=== PATIENT | male | born 1950 | race Caucasian/White ===

== ENCOUNTER 2017-05-31 07:14 | Inpatient (IN) | payer MEDICAID, OTHER ==
[2017-05-31] VITALS (7 sets, daily range): BP systolic 117–122; BP diastolic 69–84; PULSE 78–103; RESP 18
[~2017-05-31] VITALS: Wt 85.0 kg
[~2017-05-31 07:14] MED LIST: ASC500 PO; ASPI325T32 PO; ATOR80TA75 PO; BENA10TA48 PO; CLOP75TA27 PO; FER325 PO; FINA5TAB4 PO; HYDR-3498 PO; PANT40TA4 PO; SERT50TA6 PO; SPIR25TA PO; TAMS-14 PO
[2017-05-31] MEDS ORDERED: METHYLPREDNISOLONE 125 MG INJ IV STA (07:19)
[2017-05-31] MEDS ORDERED: ALBUTEROL 0.083% (NEB) 2.5 MG/3 ML AMP NEB STA (07:19)
[2017-05-31] MEDS ORDERED: IPRATROPIUM (NEB) 0.5 MG/2.5 ML AMP NEB STA (07:19)
--- NOTE | 2017-05-31 07:54 | RADRPT ---
PROCEDURE: XR Chest. TECHNIQUE: Single frontal radiograph. CLINICAL INDICATION: Shortness of breath. COMPARISON: 09/07/2016. FINDINGS: Progressed bilateral diffuse interstitial opacities. Lung volumes remain shallow. The cardiac silh ouette is enlarged. IMPRESSION: Increased bilateral interstitial opacities, especially in the right hemithorax, reflecting worsening edema and/or infiltrate. RPTAT: EE .Sander Spencer MD, MD Date Time Electronically viewed and signed by .Sander Spencer MD, MD on 05/31/2017 07:59 .C/
[2017-05-31 07:57] LABS: BASOPHIL # 0.1 10^3/ul (0.0-0.1); BASOPHILS % 0.6 % (0.0-2.0); EOSINOPHILS # 0.2 10^3/ul (0.0-0.5); EOSINOPHILS % 1.8 % (0.0-7.0); HEMATOCRIT 39.8 % (42.0-52.0); HEMOGLOBIN 12.9 g/dl (14.0-18.0); LYMPHOCYTES # 2.1 10^3/ul (0.8-2.9); LYMPHOCYTES % 23.3 % (15.0-51.0); MEAN CORPUSCULAR HEMOGLOBIN 26.9 pg (29.0-33.0); MEAN CORPUSCULAR HGB CONC 32.4 g/dl (32.0-37.0); MEAN CORPUSCULAR VOLUME 83.1 fl (82.0-101.0); MEAN PLATELET VOLUME 9.6 fl (7.4-10.4); MONOCYTE # 0.5 10^3/ul (0.3-0.9); MONOCYTES % 5.8 % (0.0-11.0); NEUTROPHILS % 67.7 % (39.0-77.0); PLATELET COUNT 284 10^3/UL (140-415); RED BLOOD COUNT 4.79 10^6/ul (4.70-6.10); RED CELL DISTRIBUTION WIDTH 13.3 % (11.5-14.5); WHITE BLOOD COUNT 8.8 10^3/ul (4.8-10.8)
[2017-05-31 07:58] LABS: ADD SCAN DIFF NO
[2017-05-31 08:15] LABS: CREATININE 0.87 mg/dl (0.61-1.24); POTASSIUM 4.2 mmol/L (3.5-5.1)
[2017-05-31 08:17] LABS: INR 0.96; PROTIME 12.8 Sec (12.2-14.2)
[2017-05-31 08:18] LABS: PARTIAL THROMBOPLASTIN TIME 32.4 Sec (25.0-35.0)
[2017-05-31 08:26] LABS: TROPONIN-I 0.041 ng/ml (0.00-0.12)
--- NOTE | 2017-05-31 08:44 | ERA ---
ER Documentation Chief Complaint Date/Time DATE: 05/31/17 TIME: 08:41 Chief Complaint COUGH, SOB, ONSET LAST NIGHT, DENIES CHEST PAIN HPI This 66-year-old male presents to the emergency room for evaluation of shortness of breath, and dry cough. The patient states that he is also having some chest pain which localized to the center of his chest. He does state that he has a previous heart attack with stent placement 2 years ago. He has not followed up with brush sander. He came to the ER today for evaluation ROS All systems reviewed and are negative except as per history of present illness. Medications Home Meds Active Scripts Tamsulosin Hcl* (Flomax*) 0.4 Mg Cap.er.24h, 0.4 MG PO HS for 1 Day, CAP Prov:TAYLOR TSANG MD 09/09/16 Spironolactone* (Aldactone*) 25 Mg Tablet, 25 MG PO DAILY for 1 Day, TAB Prov:TAYLOR TSANG MD 09/09/16 Sertraline Hcl* (Sertraline Hcl*) 50 Mg Tablet, 50 MG PO DAILY for 1 Day, TAB Prov:TAYLOR TSANG MD 09/09/16 Pantoprazole* (Pantoprazole*) 40 Mg Tablet.dr, 40 MG PO DAILY@06 for 1 Day Prov:TAYLOR TSANG MD 09/09/16 Hydrocodone Bit-Acetaminophen (Hydrocodone Bit-APAP) 5-325MG Tablet, 1 TAB PO Q3H Y for PAIN LEVEL 1-3 for 1 Day, TAB Prov:TAYLOR TSANG MD 09/09/16 Finasteride* (Finasteride*) 5 Mg Tablet, 5 MG PO DAILY for 1 Day, TAB Prov:TAYLOR TSANG MD 09/09/16 Ferrous Sulfate* (Ferrous Sulfate*) 325 Mg Tabec, 325 MG PO DAILY for 1 Day, TAB Prov:TAYLOR TSANG MD 09/09/16 Clopidogrel Bisulfate (Clopidogrel) 75 Mg Tablet, 75 MG PO DAILY for 1 Day, TAB Prov:TAYLOR TSANG MD 09/09/16 Benazepril Hcl* (Benazepril Hcl*) 10 Mg Tablet, 10 MG PO BID for 1 Day, TAB Prov:TAYLOR TSANG MD 09/09/16 Atorvastatin* (Atorvastatin*) 80 Mg Tablet, 80 MG PO DAILY@21 for 1 Day, TAB Prov:TAYLOR TSANG MD 09/09/16 Aspirin (Aspir-Irena) 325 Mg Tablet.dr, 325 MG PO DAILY for 1 Day Prov:TAYLOR TSANG MD 09/09/16 Ascorbic Acid (Vitamin C) 500 Mg Tab, 500 MG PO DAILY for 1 Day, TAB Prov:TAYLOR TSANG MD 09/09/16 Allergies Allergies: Coded Allergies: No Known Allergy (Unverified , 08/31/16) PMhx/Soc History of Surgery: Yes (see EMR) Anesthesia Reaction: No Hx 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 Disorder: No Hx Respiratory Disorders: No Hx Cardiac Disorders: No Hx Psychiatric Problems: No Hx Miscellaneous Medical Probl: Yes (see EMR) Hx Alcohol Use: Yes Hx Substance Use: No Hx Tobacco Use: Yes Physical Exam Vitals Vital Signs Date Time Temp Pulse Resp B/P Pulse Ox O2 Delivery O2 Flow Rate FiO2 05/31/17 07:29 93 20 98 Nasal Cannula 3.0 05/31/17 07:25 Nasal Cannula 2 05/31/17 07:24 98.7 97 17 133/88 97 Physical Exam INITIAL VITAL SIGNS: Reviewed by me GENERAL: The patient is well developed and appropriate for usual state of health in no apparent distress HEENT: Pupils equal, round, and reactive to light. EOMI. There is no scleral icterus. NECK: C-spine is soft and supple, there is no meningismus. There is no cervical lymphadenopathy. LUNGS: Expiratory wheezing bilaterally with coarse breath sounds in the bilateral lower lobes. HEART: Regular rate and rhythm, no murmurs, clicks, rubs or gallops. ABDOMEN: Soft, non-tender, non-distended. There are bowel sounds in all four quadrants. No rebound or guarding. EXTREMITIES: There is no peripheral cyanosis or edema. No focal swelling or erythema. NEUROLOGICAL: The patient moves all four extremities with 5/5 strength. Cranial nerves II - XII are intact. Normal gait. Alert and oriented SKIN: There is no apparent rash or petechiae. HEME/LYMPHATIC: There is no evidence of excessive bruising or lymphedema. PSYCHIATRIC: The patient does not appear anxious or depressed. Result Diagram: 05/31/17 0741 05/31/17 07 Results 24 hrs Laboratory Tests Test 05/31/17 07:41 White Blood Count 8.810^3/ul Red Blood Count 4.7910^6/ul Hemoglobin 12.9g/dl Hematocrit 39.8% Mean Corpuscular Volume 83.1fl Mean Corpuscular Hemoglobin 26.9pg Mean Corpuscular Hemoglobin Concent 32.4g/dl Red Cell Distribution Width 13.3% Platelet Count 99843^3/UL Mean Platelet Volume 9.6fl Neutrophils % 67.7% Lymphocytes % 23.3% Monocytes % 5.8% Eosinophils % 1.8% Basophils % 0.6% Nucleated Red Blood Cells % 0.0/100WBC Neutrophils # 6.010^3/ul Lymphocytes # 2.110^3/ul Monocytes # 0.510^3/ul Eosinophils # 0.210^3/ul Basophils # 0.110^3/ul Nucleated Red Blood Cells # 0.010^3/ul Prothrombin Time 12.8Sec Prothrombin Time Ratio 1.0 INR International Normalized Ratio 0.96 Activated Partial Thromboplast Time 32.4Sec Sodium Level 135mmol/L Potassium Level 4.2mmol/L Chloride Level 101mmol/L Carbon Dioxide Level 23mmol/L Anion Gap 15 Blood Urea Nitrogen 17mg/dl Creatinine 0.87mg/dl Glucose Level 140mg/dl Calcium Level 9.0mg/dl Troponin I 0.041ng/ml B-Type Natriuretic Peptide 2050PG/ML Current Medications Medications (Trade) Dose Ordered Sig/Dimitrios Route PRN Reason Start Time Stop Time Status Last Admin Dose Admin Albuterol (Proventil 0.083% (Neb)) 5 mg ONCE STAT NEB 05/31/17 07:19 05/31/17 07:21 DC 05/31/17 07:28 Ipratropium [place] (Atrovent 0.02% (Neb)) 0.5 mg ONCE STAT NEB 05/31/17 07:19 05/31/17 07:21 DC 05/31/17 07:28 Methylprednisolone Sodium Succinate (Solu-Medrol) 125 mg ONCE STAT IV 05/31/17 07:19 05/31/17 07:21 DC 05/31/17 07:44 Ondansetron HCl (Zofran Inj) 4 mg ER BRIDGE PRN IV NAUSEA AND/OR VOMITING 05/31/17 09:00 06/01/17 08:59 Acetaminophen (Tylenol Tab) 650 mg ER BRIDGE PRN PO MILD PAIN/FEVER 05/31/17 09:00 06/01/17 08:59 Aspirin (Aspirin) 325 mg ONCE ONCE PO 05/31/17 09:00 05/31/17 09:01 Furosemide (Lasix) 20 mg ONCE ONCE IV 05/31/17 09:00 05/31/17 09:01 Procedures/MDM EKG: Rate/Rhythm: [Normal Sinus Rhythm with PVCs] QRS, ST, T-waves: [No changes consistent w/ acute ischemia] Impression: [No evidence of acute ischemia or arrhythmia] Chest X-ray 1V Interpreted by me: Soft Tissue: Pulmonary edema Bones: No acute abnormalities Mediastinum/Cardiac Silhouette/Lungs: [No acute abnormalities] This 66-year-old male presents to the ER for evaluation of chest pain shortness of breath. The patient did have a slight cough as well. On examination he had mild end expiratory wheezing bilaterally. He also coarse rales auscultated in the lower lobes. Patient's EKG does not show any signs of acute ischemia however the patient does have a previous cardiac history and is an active smoker. This patient's lab work does show an elevated brain natruretic peptide. His first troponin is negative, chest x-ray does show mild pulmonary edema versus infiltrate. The patient was given aspirin in the emergency room, is given 20 mg Lasix. He will be admitted at this time and will be started on Rocephin and azithromycin for possible superimposed [facility] pneumonia. The patient is hemodynamically stable will be admitted under the care of Dr. Allison Smoking Cessation Therapy: Pt. was lectured for greater than 3 minutes on the health risks of continued smoking and the benefits of cessation. Departure Diagnosis: Primary Impression: Chest pain Additional Impressions: Shortness of breath Systolic CHF Tobacco use disorder Pulmonary edema Condition: MAISHA Rojas DO May 31, 2017 08:44
[2017-05-31] MEDS ORDERED: CEFTRIAXONE 1 GM/50 ML (PMX) 50 ML IVPB STA (08:45)
[2017-05-31] MEDS ORDERED: AZITHROMYCIN 500MG/NS (PMX) 250 ML IV STA (08:45)
[2017-05-31] MEDS ORDERED: FUROSEMIDE 20 MG INJ IV ONE (09:00)
[2017-05-31] MEDS ORDERED: ONDANSETRON 4 MG INJ IV PRN ×2 (09:00→11:30)
[2017-05-31] MEDS ORDERED: ACETAMINOPHEN 325 MG TAB PO PRN ×2 (09:00→11:30)
[2017-05-31] MEDS ORDERED: ASPIRIN 325 MG TAB PO ONE (09:00)
[2017-05-31] MEDS ORDERED: morphine 2 MG INJ IV PRN (11:30)
--- NOTE | 2017-05-31 11:38 | HP ---
Date/Time of Note Date/Time of Note DATE: 05/31/17 TIME: 11:34 Assessment/Plan VTE Prophylaxis VTE Prophylaxis Intervention: LMWH Lines/Catheters IV Catheter Type (from Nrs): Saline Lock Assessment/Plan Assessment/Plan 1. cards: chf, diuresis, check echo (b) cad, cont asa and plavix 2. tobacco abuse, cessation counselled 3. depression 4, bph cont flomax and proscar HPI/ROS Admit Date/Time Admit Date/Time May 31, 2017 at 08:34 Hx of Present Illness neto arellano 1 day of sb which started last night and prevented him from sleeping, he states that every time he lay down his breathing gets worse. he denies any associated chest pain./ states that because he could not sleep he spent the entire nigght pacing and walking around ROS 5 systems reviewed and not revealing PMH/Family/Social Past Medical History cad s/p stent x2 lad tobacco abuse dpression bph htn Family History Significant Family History: no pertinent family hx Social History lives at home with mother, IADL, able to do laundry but sdoes have to stop when carrying it back to his apratment Alcohol Use: occasionally Smoking Status: Current every day smoker Exam/Review of Systems Vital Signs Vitals Vital Signs Date Time Temp Pulse Resp B/P Pulse Ox O2 Delivery O2 Flow Rate FiO2 05/31/17 10:19 91 05/31/17 09:23 18 137/74 97 Nasal Cannula 2.0 05/31/17 07:24 98.7 Exam Constitutional: oriented Psych: no complaints Head: atraumatic, normocephalic Neck: non-tender, supple Respiratory: clear to auscultation Cardiovascular: regular rate and rhythm Gastrointestinal: non-tender, soft Labs Result Diagram: 05/31/17 0741 05/31/17 0741 QUIRINO GONCALVES MD May 31, 2017 11:37
[2017-05-31] MEDS: FUROSEMIDE 40 MG INJ IV SCH (12:30)
[2017-05-31 14:43] LABS: TROPONIN-I 0.031 ng/ml (0.00-0.12)
[2017-05-31 14:46] LABS: CK-MB 1.77 ng/ml (0.0-2.4)
[2017-05-31] MEDS: BENAZEPRIL 10 MG TAB PO SCH (20:13)
[2017-05-31 20:18] LABS: TROPONIN-I 0.022 ng/ml (0.00-0.12)
[2017-05-31 20:19] LABS: CK-MB 1.94 ng/ml (0.0-2.4)
[2017-05-31] MEDS ORDERED: ATORVASTATIN 80 MG TAB PO SCH (21:00)
[2017-05-31] MEDS ORDERED: TAMSULOSIN (SR) 0.4 MG CAP PO SCH (21:00)
[2017-06-01] VITALS (13 sets, daily range): BP systolic 88–167; BP diastolic 55–81; PULSE 78–96; RESP 16–20
[2017-06-01] MEDS: FUROSEMIDE 40 MG INJ IV SCH (00:07)
[2017-06-01] MEDS ORDERED: PANTOPRAZOLE (EC) 40 MG TAB PO SCH (06:00)
[2017-06-01] MEDS ORDERED: FINASTERIDE 5 MG TAB PO SCH (09:00)
[2017-06-01] MEDS ORDERED: FERROUS SULFATE (EC) 325 MG TAB PO SCH (09:00)
[2017-06-01] MEDS ORDERED: ASCORBIC ACID 500 MG TAB PO SCH (09:00)
[2017-06-01] MEDS: BENAZEPRIL 10 MG TAB PO SCH (09:00)
[2017-06-01] MEDS ORDERED: CLOPIDOGREL 75 MG TAB PO SCH (09:00)
[2017-06-01] MEDS ORDERED: SPIRONOLACTONE 25 MG TAB PO SCH (09:00)
[2017-06-01] MEDS ORDERED: ASPIRIN (EC) 325 MG TAB PO SCH (09:00)
[2017-06-01] MEDS ORDERED: ENOXAPARIN 40 MG/0.4 ML SYG SC SCH (09:00)
[2017-06-01] MEDS ORDERED: SERTRALINE 50 MG TAB PO SCH (09:00)
--- NOTE | 2017-06-01 11:43 | PN ---
Date/Time of Note Date/Time of Note DATE: 06/01/17 TIME: 11:41 Assessment/Plan VTE Prophylaxis VTE Prophylaxis Intervention: ambulation Lines/Catheters IV Catheter Type (from Nrsg): Saline Lock Urinary Cath still in place: No Assessment/Plan Assessment/Plan 1. cards: chf, await echo, appears at or near euvolemic, d/c lasix (b0 hypotension, asymptomatic, will reduce benazepril 2. tobacco abuse, cessation counselled Subjective 24 Hr Interval Summary Free Text/Dictation feels better, was able to sleep last night Exam/Review of Systems Vital Signs Vitals Vital Signs Date Time Temp Pulse Resp B/P Pulse Ox O2 Delivery O2 Flow Rate FiO2 06/01/17 11:39 97.6 86 20 101/66 96 06/01/17 04:00 Nasal Cannula 5.0 Intake and Output 05/31/17 05/31/17 06/01/17 15:00 23:00 07:00 Intake Total 400 ml Output Total 850 ml 750 ml Balance -850 ml -350 ml Exam able to stand and walk >100' on ra, no complaints of sob Constitutional: alert Respiratory: clear to auscultation Cardiovascular: regular rate and rhythm Results Result Diagram: 05/31/17 0741 05/31/17 0741 Results 24 hrs Laboratory Tests Test 05/31/17 13:35 05/31/17 17:25 05/31/17 19:31 Creatine Kinase 49 50 Creatine Kinase Index 3.6 3.9 Creatinine Kinase MB (Mass) 1.77 1.94 Troponin I 0.031 0.028 0.022 Medications Medications Current Medications Furosemide (Lasix) 40 mg Q12H IV Last administered on 06/01/17 00:07; Admin Dose 40 MG; Start 05/31/17 at 11:30 Acetaminophen (Tylenol Tab) 650 mg Q4H PRN PO PAIN AND OR ELEVATED TEMP; Start 05/31/17 at 11:30 Ondansetron HCl (Zofran Inj) 4 mg Q4H PRN IV NAUSEA AND/OR VOMITING; Start 05/31 at 11:30 Morphine Sulfate (morphine) 2 mg Q2H PRN IV PAIN; Start 05/31/17 at 11:30 Enoxaparin Sodium (Lovenox) 40 mg DAILY SC Last administered on 06/01/17 10:24 ; Admin Dose 40 MG; Start 06/01/17 at 09:00 Ascorbic Acid (Vitamin C) 500 mg DAILY PO Last administered on 06/01/17 09:00; Admin Dose 500 MG; Start 06/01/17 at 09:00 Aspirin (Ecotrin) 325 mg DAILY PO Last administered on 06/01/17 10:18; Admin Dose 325 MG; Start 06/01/17 at 09:00 Atorvastatin Calcium (Lipitor) 80 mg DAILY@21 PO Last administered on 05/31/17 20:13; Admin Dose 80 MG; Start 05/31/17 at 21:00 Benazepril HCl (Lotensin) 10 mg BID PO Last administered on 05/31/17 20:13; Admin Dose 10 MG; Start 05/31/17 at 21:00 Clopidogrel Bisulfate (plaVIX) 75 mg DAILY PO Last administered on 06/01/17 10: 16; Admin Dose 75 MG; Start 06/01/17 at 09:00 Ferrous Sulfate (Ferrous Sulfate (Ec)) 325 mg DAILY PO Last administered on 06/01 10:16; Admin Dose 325 MG; Start 06/01/17 at 09:00 Finasteride (Proscar) 5 mg DAILY PO Last administered on 06/01/17 10:12; Admin Dose 5 MG; Start 06/01/17 at 09:00 Pantoprazole (Protonix Tab) 40 mg DAILY@06 PO Last administered on 06/01/17 05: 05; Admin Dose 40 MG; Start 06/01/17 at 06:00 Sertraline HCl (Zoloft) 50 mg DAILY PO Last administered on 06/01/17 10:17; Admin Dose 50 MG; Start 06/01/17 at 09:00 Spironolactone (Aldactone) 25 mg DAILY PO ; Start 06/01/17 at 09:00 Tamsulosin HCl (Flomax) 0.4 mg HS PO Last administered on 05/31/17 20:13; Admin Dose 0.4 MG; Start 05/31/17 at 21:00 QUIRINO GONCALVES MD Jun 01, 2017 11:43
[2017-06-01] MEDS ORDERED: BENA10TA48 PO (11:52)
--- NOTE | 2017-06-01 11:54 | PDOCDIS ---
Discharge Instructions CONDITION Patient Condition: Good HOME CARE INSTRUCTIONS: Diet Instructions: 2gm Na ACTIVITY: Activity Restrictions: Slowly Increase Activity FOLLOW UP/APPOINTMENTS Follow-up Plan 1. follow [facility] 1-2 weeks 2. follow up[ with cardiology next available 3. note new dose of benazepril (1 tab daily) 4. quit smoking and keep quitting until you have quit for good QUIRINO GONCALVES MD Jun 01, 2017 11:54
--- NOTE | 2017-06-01 18:15 | RADRPT ---
Echocardiogram Report Patient Name: HARJEET CALZADA Gender: Male Date: 1950 Study Date: 01-Jun-2017 Distribution Field Technician: Finn Ferreira [facility] Location: [id number] Ref. Physician: QUIRINO GONCALVES Quality: Adequate Procedures: Transthoracic echocardiogram with complete 2D, M-Mode, and doppler examination. Indications: Chest Pain. 2D/M Mode Doppler Measurement Value Normal Ranges Measurement Value Normal Ranges LVIDd 2D 5.9 3.5 - 5.6 cm AV Peak Edgar 0.9 m/sec LVIDs 2D 4.2 2.1 - 4.1 cm AV Peak PG 3.6 mmHg LVPWd 2D 1.3 0.6 - 1.1 cm LVOT Peak Edgar 0.7 m/sec IVSd 2D 1.3 0.6 - 1.1 cm LVOT Peak PG 1.9 mmHg AoR Diam 2D 3.8 2.0 - 3.7 cm MV E Peak Edgar 1.7 m/sec EDV 2D 171.0 cm3 MV A Peak Edgar 0.3 m/sec ESV 2D 76.3 cm3 MV E/A 5.4 LA Dimen 2D 3.6 2.3 - 4.0 cm MV Decel Time 79 msec MV Decel Spencer 21 MV E/A 5.4 TR Peak Edgar 3.7 m/sec TR Peak PG 59.0 mmHg RVSP 62.0 mmHg Findings Left Ventricle: Normal left ventricular cavity size. Mild concentric left ventricular hypertrophy. Severe global left ventricular systolic dysfunction. Ejection fraction is visually estimated at 25 %. Tissue Doppler/Mitral Doppler indices are consistent with restrictive physiology with markedly elevated left atrial pressure (Stage IIIIV diastolic dysfunction). Right Ventricle: Normal right ventricular size. Normal right ventricular systolic function. Left Atrium: The left atrium is normal in size. Right Atrium: The right atrium is normal in size. Mitral Valve: Mitral valve leaflets appear moderately thickened. Moderate mitral annular calcification. Moderate to severe mitral valve regurgitation. Aortic Valve: No significant aortic stenosis or insufficiency. Aortic sclerosis without stenosis. Tricuspid Valve: Normal appearance of the tricuspid valve. Estimated peak PA systolic pressure 62 mmHg. There is moderate tricuspid regurgitation. Pulmonic Valve: Normal pulmonic valve appearance. There is trace pulmonic regurgitation. Pericardium: Normal pericardium with no significant pericardial effusion. Aorta: Normal aortic root. IVC: Normal size and normal respiratory collapse consistent with normal right atrial pressure. Conclusions 1.Normal left ventricular cavity size. Mild concentric left ventricular hypertrophy. Severe global left ventricular systolic dysfunction. Ejection fraction is visually estimated at 25 %. Tissue Doppler/Mitral Doppler indices are consistent with restrictive physiology with markedly elevated left atrial pressure (Stage III-IV diastolic dysfunction). 2.Mitral valve leaflets appear moderately thickened. Moderate mitral annular calcification. Moderate to severe mitral valve regurgitation. Electronically Signed By: Tim Harris 01-Jun-2017 18:14:09 -0700 Patient Name: HARJEET CALZADA Study Date: 01-Jun-2017 [id number]
[2017-06-02] MEDS ORDERED: BENAZEPRIL 10 MG TAB PO SCH (09:00)
== END 2017-06-01 19:07 | disposition home or self-care (01) | DRG 293 ==
LOC: E/R 07:14 → MS4 08:34
PROVIDERS: ADMIT Legal Medicine; ATTEND Legal Medicine
DX: I11.0 Hypertensive heart disease with heart failure (principal); F32.9 Major depressive disorder, single episode, unspecified; I25.10 Atherosclerotic heart disease of native coronary artery without angina pectoris; F17.210 Nicotine dependence, cigarettes, uncomplicated; Z95.5 Presence of coronary angioplasty implant and graft; I25.2 Old myocardial infarction; N40.0 Benign prostatic hyperplasia without lower urinary tract symptoms; I50.20 Unspecified systolic (congestive) heart failure
CPT/HCPCS: 36415; 71010; 80048; 82550; 82553; 83880; 84484; 85025; 85610; 85730; 93005; 93306; 94664; 96374; 96375; J1940; J0456; J0696; J1650; J2930

== ENCOUNTER 2017-07-03 03:17 | Inpatient (IN) | payer OTHER ==
[~2017-07-03] VITALS: Ht 172.7 cm; Wt 87.4 kg
[2017-07-03] MEDS ORDERED: FURO20TA3 PO (04:10)
[2017-07-03 04:17] LABS: BASOPHIL # 0.1 10^3/ul (0.0-0.1); BASOPHILS % 0.2 % (0.0-2.0); EOSINOPHILS # 0.2 10^3/ul (0.0-0.5); EOSINOPHILS % 0.9 % (0.0-7.0); HEMATOCRIT 28.3 % (42.0-52.0); HEMOGLOBIN 8.8 g/dl (14.0-18.0); LYMPHOCYTES # 2.1 10^3/ul (0.8-2.9); LYMPHOCYTES % 10.2 % (15.0-51.0); MEAN CORPUSCULAR HEMOGLOBIN 26.7 pg (29.0-33.0); MEAN CORPUSCULAR HGB CONC 31.1 g/dl (32.0-37.0); MEAN PLATELET VOLUME 9.9 fl (7.4-10.4); MONOCYTE # 1.4 10^3/ul (0.3-0.9); NEUTROPHIL # 15.9 10^3/ul (1.6-7.5); NEUTROPHILS % 78.3 % (39.0-77.0); PLATELET COUNT 350 10^3/UL (140-415); RED BLOOD COUNT 3.29 10^6/ul (4.70-6.10); RED CELL DISTRIBUTION WIDTH 14.9 % (11.5-14.5); WHITE BLOOD COUNT 20.4 10^3/ul (4.8-10.8)
[2017-07-03 04:36] LABS: INR 1.68; PROTIME 19.9 Sec (12.2-14.2); PT RATIO 1.6
[2017-07-03 04:37] LABS: PARTIAL THROMBOPLASTIN TIME 52.4 Sec (25.0-35.0)
[2017-07-03 04:40] LABS: ALANINE AMINOTRANSFERASE 97 IU/L (13-69); ALBUMIN 3.9 g/dl (3.3-4.9); ALBUMIN/GLOBULIN RATIO 1.25; ALKALINE PHOSPHATASE 143 IU/L (42-121); ANION GAP 21 (8-16); ASPARTATE AMINO TRANSFERASE 57 IU/L (15-46); BILIRUBIN,INDIRECT 0.3 mg/dl (0-1.1); BILIRUBIN,TOTAL 0.3 mg/dl (0.2-1.3); BLOOD UREA NITROGEN 20 mg/dl (7-20); CALCIUM 8.7 mg/dl (8.4-10.2); CARBON DIOXIDE 25 mmol/L (21-31); CHLORIDE 95 mmol/L (97-110); CREATININE 0.84 mg/dl (0.61-1.24); GLUCOSE 131 mg/dl (70-220); SODIUM 136 mmol/L (135-144)
[2017-07-03 04:44] LABS: ETHANOL < 10.0 mg/dl
[2017-07-03 04:51] LABS: B-TYPE NATRIURETIC PEPTIDE 10700 PG/ML (0-125)
[2017-07-03] MEDS ORDERED: FUROSEMIDE 40 MG INJ IV ONE (05:00)
--- NOTE | 2017-07-03 05:09 | RADRPT ---
PROCEDURE: CT BRAIN WITHOUT CONTRAST CLINICAL INDICATION: 66-year-old male with altered level of consciousness. TECHNIQUE: The study was performed utilizing GE [employer] VCT 64-slice CT scanner. Direct axial sections were obtained from the foramen magnum to the vertex without the use of intravenous contrast material. Sagittal and coronal reformations were obtained. One or more of the following dose reduc tion techniques were utilized: automated exposure control, adjustment of the mA and/or kV according to patient's size or use of iterative reconstruction technique. The images were viewed on a PACS [place]. CTD/vol = 45.0 mGy; Total Exam DLP = 810.3 mGy-cm. COMPARISON: CT brain August 14, 2016. FINDINGS: There is [id number] degree of diffuse cortical and central atrophy with compensatory ventricul ar enlargement. There is no evidence for mass effect or midline shift. There are periventricular a reas of decreased density consistent with microangiopathic ischemic changes. There is no evidence f or acute intra or extra-axial blood. Calcifications are seen within the intracranial carotid arterie s bilaterally. The bony calvarium is intact. There is mild mucosal thickening identified within the ethmoid air cells bilaterally and left maxillary sinus. No definite air-fluid levels are noted. Th e mastoid air cells are without significant soft tissue. IMPRESSION: 1. The intracranial contents are without significant interval change compared to the patient's prio r CT scan from August 14, 2016. 2. Kvyv-fl-ukolcstf diffuse atrophy. 3. Microangiopathic ischemic changes. 4. Vascular calcifications. 5. Mild mucosal thickening bilateral ethmoid air cells and left maxillary sinus. .Jasper Duncan MD, Date Time Electronically viewed and signed by .Jasper Duncan MD, on 07/03/2017 05:09 .M/
--- NOTE | 2017-07-03 05:13 | RADRPT ---
PROCEDURE: CHEST - 1 VIEW CLINICAL INDICATION: 66-year-old male with shortness of breath. TECHNIQUE: A single frontal AP upright portable view of the chest was performed. The images were reviewed on a PACS workstation. COMPARISON: Chest x-ray May 31, 2017. FINDINGS: The patient has had a prior median sternotomy. The cardiomediastinal silhouette is moderately enlar ged. There is a left atrial appendage closure device. There is elevation right hemidiaphragm. Ther e is mild pulmonary vascular congestion. There is no evidence for focal consolidation. There is no e vidence for pneumothorax. IMPRESSION: 1. Status post median sternotomy. 2. Cardiomegaly with left atrial appendage closure device. 3. Pulmonary vascular congestion. 4. Elevated right hemidiaphragm. .Jasper Duncan MD, Date Time Electronically viewed and signed by .Jasper Duncan MD, on 07/03/2017 05:12 .M/
[2017-07-03] MEDS ORDERED: ASPIRIN 325 MG TAB PO ONE (05:30)
[2017-07-03] MEDS ORDERED: NITROGLYCERIN 2% 1 GM OINT PKT TD ONE (05:30)
[2017-07-03] MEDS ORDERED: PIPER-TAZO 3.375 GM IV (PMX) 100 ML IVPB ONE (05:30)
[2017-07-03] MEDS ORDERED: ONDANSETRON 4 MG INJ IV PRN (06:00)
[2017-07-03] MEDS ORDERED: LORAZEPAM 2 MG INJ IV ONE (06:00)
[2017-07-03] MEDS ORDERED: ACETAMINOPHEN 325 MG TAB PO PRN (06:00)
[2017-07-03] MEDS: VANCOMYCIN 1 GM (PMX) 250 ML IVPB SCH ×2 (06:00→07:26)
[2017-07-03] MEDS ORDERED: VANCOMYCIN IV PER PHARMACY XX SCH (06:00)
[2017-07-03] MEDS ORDERED: PIPER-TAZO 3.375 GM IV (PMX) 100 ML IVPB SCH (06:00)
[2017-07-03] MEDS: PANTOPRAZOLE (EC) 40 MG TAB PO SCH (06:04)
--- NOTE | 2017-07-03 06:14 | ERA ---
ER Documentation Chief Complaint Date/Time DATE: 07/03/17 Chief Complaint bib ra for cp x 5 hours, given 1 nitro spray on field with asa 162 mg, HPI The patient is a 66-year-old male, presenting to the ER because of right-sided chest pain, shortness of breath for the last 5 hours prior to arrival. He was treated with aspirin 160 mg asa and 1 nitroglycerin spray with good response. He was discharged to the hospital recently about 5 days ago when he had open heart surgery, the details unclear. He is somewhat confused according to the nurse to speak fluent [place]. He is unable to give detailed information of the surgery that he had. He denies palpitation, abdominal pain, vomiting, dysuria, diarrhea. He smokes and drinks socially Past medical history: CAD, CHF, depression, BPH Past surgical history: Stent PCI, open heart surgery recently ROS All systems reviewed and are negative except as per history of present illness. Medications Home Meds Active Scripts Benazepril Hcl* (Benazepril Hcl*) 10 Mg Tablet, 10 MG PO DAILY for 30 Days, #30 TAB Prov:QUIRINO GONCALVES MD 06/01/17 Tamsulosin Hcl* (Flomax*) 0.4 Mg Cap.er.24h, 0.4 MG PO HS for 1 Day, CAP Prov:TAYLOR TSANG MD 09/09/16 Spironolactone* (Aldactone*) 25 Mg Tablet, 25 MG PO DAILY for 1 Day, TAB Prov:TAYLOR TSANG MD 09/09/16 Sertraline Hcl* (Sertraline Hcl*) 50 Mg Tablet, 50 MG PO DAILY for 1 Day, TAB Prov:TAYLOR TSANG MD 09/09/16 Pantoprazole* (Pantoprazole*) 40 Mg Tablet.dr, 40 MG PO DAILY@06 for 1 Day Prov:TAYLOR TSANG MD 09/09/16 Hydrocodone Bit-Acetaminophen (Hydrocodone Bit-APAP) 5-325MG Tablet, 1 TAB PO Q3H Y for PAIN LEVEL 1-3 for 1 Day, TAB Prov:TAYLOR TSANG MD 09/09/16 Finasteride* (Finasteride*) 5 Mg Tablet, 5 MG PO DAILY for 1 Day, TAB Prov:TAYLOR TSANG MD 09/09/16 Ferrous Sulfate* (Ferrous Sulfate*) 325 Mg Tabec, 325 MG PO DAILY for 1 Day, TAB Prov:TAYLOR TSANG MD 09/09/16 Clopidogrel Bisulfate (Clopidogrel) 75 Mg Tablet, 75 MG PO DAILY for 1 Day, TAB Prov:TAYLOR TSANG MD 09/09/16 Atorvastatin* (Atorvastatin*) 80 Mg Tablet, 80 MG PO DAILY@21 for 1 Day, TAB Prov:TAYLOR TSANG MD 09/09/16 Aspirin (Aspir-Irena) 325 Mg Tablet.dr, 325 MG PO DAILY for 1 Day Prov:TAYLOR TSANG MD 09/09/16 Ascorbic Acid (Vitamin C) 500 Mg Tab, 500 MG PO DAILY for 1 Day, TAB Prov:TAYLOR TSANG MD 09/09/16 Reported Medications Furosemide* (Furosemide*) 20 Mg Tablet, 20 MG PO BID, #30 TAB 07/03/17 Allergies Allergies: Coded Allergies: No Known Allergy (Unverified , 07/03/17) PMhx/Soc History of Surgery: Yes (open heart unknown date) Anesthesia Reaction: No Hx 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 Disorder: No Hx Respiratory Disorders: No Hx Cardiac Disorders: Yes Hx Psychiatric Problems: No Hx Miscellaneous Medical Probl: No Hx Alcohol Use: No Hx Substance Use: No Hx Tobacco Use: No Smoking Status: Never smoker Physical Exam Vitals Vital Signs Date Time Temp Pulse Resp B/P Pulse Ox O2 Delivery O2 Flow Rate FiO2 07/03/17 13:20 98.9 86 15 124/82 100 Nasal Cannula 2.0 07/03/17 12:00 100.1 88 15 127/85 100 Nasal Cannula 2.0 07/03/17 11:00 87 113/84 07/03/17 11:00 99.6 87 19 113/84 100 Nasal Cannula 2.0 07/03/17 09:40 88 110/80 07/03/17 08:27 83 108/81 07/03/17 06:10 89 23 101/74 100 Nasal Cannula 3.0 07/03/17 05:00 98.2 88 25 112/95 100 Nasal Cannula 3.0 07/03/17 03:52 Nasal Cannula 3 07/03/17 03:26 98.5 89 19 120/75 100 Nasal Cannula 2.0 07/03/17 03:23 98.5 89 19 114/74 100 Physical Exam Const: No acute distress. Head: Atraumatic. Eyes: Normal Conjunctiva. ENT: Normal External Ears, Nose and Mouth. Neck: Full range of motion. No meningismus. Resp: Bibasilar crackles Cardio: Regular rate and rhythm. Abd: Soft, non distended, normal bowel sounds, non tender. Skin: No petechiae or rashes. Back: No midline or flank tenderness. Ext: No cyanosis, or edema. Neur: Awake and alert. No focal deficit Psych: Limited due to his condition Result Diagram: 07/03/17 0330 07/03/17 0330 Results 24 hrs Laboratory Tests Test 07/03/17 03:30 07/03/17 05:33 07/03/17 05:59 07/03/17 07:42 White Blood Count 20.410^3/ul Red Blood Count 3.2910^6/ul Hemoglobin 8.8g/dl Hematocrit 28.3% Mean Corpuscular Volume 86.0fl Mean Corpuscular Hemoglobin 26.7pg Mean Corpuscular Hemoglobin Concent 31.1g/dl Red Cell Distribution Width 14.9% Platelet Count 47927^3/UL Mean Platelet Volume 9.9fl Neutrophils % 78.3% Lymphocytes % 10.2% Monocytes % 7.0% Eosinophils % 0.9% Basophils % 0.2% Nucleated Red Blood Cells % 0.0/100WBC Neutrophils # 15.910^3/ul Lymphocytes # 2.110^3/ul Monocytes # 1.410^3/ul Eosinophils # 0.210^3/ul Basophils # 0.110^3/ul Nucleated Red Blood Cells # 0.010^3/ul Prothrombin Time 19.9Sec Prothrombin Time Ratio 1.6 INR International Normalized Ratio 1.68 Activated Partial Thromboplast Time 52.4Sec Sodium Level 136mmol/L Potassium Level 5.0mmol/L Chloride Level 95mmol/L Carbon Dioxide Level 25mmol/L Anion Gap 21 Blood Urea Nitrogen 20mg/dl Creatinine 0.84mg/dl Glucose Level 131mg/dl Calcium Level 8.7mg/dl Total Bilirubin 0.3mg/dl Direct Bilirubin 0.00mg/dl Indirect Bilirubin 0.3mg/dl Aspartate Amino Transf (AST/SGOT) 57IU/L Alanine Aminotransferase (ALT/SGPT) 97IU/L Alkaline Phosphatase 143IU/L Troponin I 1.560ng/ml B-Type Natriuretic Peptide 14934EV/ML Total Protein 7.0g/dl Albumin 3.9g/dl Globulin 3.10g/dl Albumin/Globulin Ratio 1.25 Ethyl Alcohol Level < 10.0mg/dl Lactic Acid Level 0.9mmol/L 0.9mmol/L Urine Color YELLOW Urine Clarity CLEAR Urine pH 6.0 Urine Specific [place] 1.009 Urine Ketones NEGATIVEmg/dL Urine Nitrite NEGATIVEmg/dL Urine Bilirubin NEGATIVEmg/dL Urine Urobilinogen NEGATIVEmg/dL Urine Leukocyte Esterase 3+Clem/ul Urine Microscopic RBC 7/HPF Urine Microscopic WBC 36/HPF Urine Mucus FEW/HPF Urine Hemoglobin 1+mg/dL Urine Glucose NEGATIVEmg/dL Urine Total Protein NEGATIVEmg/dl Urine Opiates Screen Positive Urine Barbiturates Negative Urine Amphetamines Screen Negative Urine Benzodiazepines Screen Negative Urine Cocaine Screen Negative Urine Cannabinoids Negative Test 07/03/17 12:00 07/03/17 12:20 Lactic Acid Level 0.9mmol/L Creatine Kinase 51IU/L Creatine Kinase Index 3.4 Creatinine Kinase MB (Mass) 1.73ng/ml Troponin I 1.460ng/ml Current Medications Medications (Trade) Dose Ordered Sig/Dimitrios Route PRN Reason Start Time Stop Time Status Last Admin Dose Admin Furosemide (Lasix) 40 mg ONCE ONCE IV 07/03/17 05:00 07/03/17 05:01 DC 07/03/17 05:06 Aspirin (Aspirin) 325 mg ONCE ONCE PO 07/03/17 05:30 07/03/17 05:31 DC 07/03/17 05:32 Nitroglycerin 1 inch 1 inch ONCE ONCE TD 07/03/17 05:30 07/03/17 05:31 DC 07/03/17 05:34 Vancomycin HCl 250 ml @ 125 mls/hr ONCE IVPB 07/03/17 05:30 07/03/17 07:29 DC 07/03/17 07:26 Piperacillin Sod/ Tazobactam Sod (Zosyn 3.375gm/ 100 ml (Pmx)) 100 ml @ 200 mls/hr ONCE ONCE IVPB 07/03/17 05:30 07/03/17 05:59 DC 07/03/17 05:57 Ascorbic Acid (Vitamin C) 500 mg DAILY PO 07/03/17 09:00 07/03/17 09:34 Aspirin (Ecotrin) 325 mg DAILY PO 07/03/17 09:00 07/03/17 13:24 DC 07/03/17 09:35 Benazepril HCl (Lotensin) 10 mg DAILY PO 07/03/17 09:00 07/03/17 09:35 Clopidogrel Bisulfate (plaVIX) 75 mg DAILY PO 07/03/17 09:00 07/03/17 09:36 Ferrous Sulfate (Ferrous Sulfate (Ec)) 325 mg DAILY PO 07/03/17 09:00 07/03/17 09:34 Finasteride (Proscar) 5 mg DAILY PO 07/03/17 09:00 07/03/17 09:34 Pantoprazole (Protonix Tab) 40 mg DAILY@06 PO 07/03/17 06:00 07/04/17 05:59 Sertraline HCl (Zoloft) 50 mg DAILY PO 07/03/17 09:00 07/03/17 09:34 Spironolactone (Aldactone) 25 mg DAILY PO 07/03/17 09:00 07/03/17 09:34 Lorazepam (Ativan) 0.5 mg ONCE ONCE IV 07/03/17 06:00 07/03/17 06:01 DC 07/03/17 06:04 Vancomycin HCl VANCOMYCIN PER PHARMACY PER PROTOCOL XX 07/03/17 06:00 Piperacillin Sod/ Tazobactam Sod (Zosyn 3.375gm/ 100 ml (Pmx)) 100 ml @ 200 mls/hr Q8H IVPB 07/03/17 06:00 07/03/17 08:49 DC Morphine Sulfate (morphine) 4 mg Q4H PRN IV pain 07/03/17 06:00 07/03/17 21:10 Acetaminophen (Tylenol Tab) 650 mg Q4H PRN PO pain/fever 07/03/17 06:00 07/03/17 20:37 Ondansetron HCl 4 mg 4 mg Q4H PRN IV nausea 07/03/17 06:00 07/03/17 07:50 Piperacillin Sod/ Tazobactam Sod 100 ml @ 200 mls/hr Q6 IVPB 07/03/17 13:00 07/04/17 05:56 Vancomycin HCl/ Sodium Chloride (Vancocin/NS) 250 ml @ 83.333 mls/ hr Q12H IVPB 07/03/17 13:15 07/03/17 17:46 DC 07/03/17 15:11 Procedures/MDM [place] [id number] Radiology Main Line: [phone] DIAGNOSTIC IMAGING REPORT Patient: HARJEET CALZADA : 1950 Age: 66 Sex: M MR #: [id number] DOS: 07/03/17 0333 Ordering MD: NEENA KAUR MD Location: E/R Room/Bed: PROCEDURE: CHEST - 1 VIEW CLINICAL INDICATION: 66-year-old male with shortness of breath. TECHNIQUE: A single frontal AP upright portable view of the chest was performed. The images were reviewed on a PACS workstation. COMPARISON: Chest x-ray May 31, 2017. FINDINGS: The patient has had a prior median sternotomy. The cardiomediastinal silhouette is moderately enlarged. There is a left atrial appendage closure device. There is elevation right hemidiaphragm. There is mild pulmonary vascular congestion. There is no evidence for focal consolidation. There is no evidence for pneumothorax. IMPRESSION: 1. Status post median sternotomy. 2. Cardiomegaly with left atrial appendage closure device. 3. Pulmonary vascular congestion. 4. Elevated right hemidiaphragm. .Jasper Duncan MD, MD Date Time Electronically viewed and signed by .Jasper Duncan MD, on 07/03/2017 05:12 .M/ CC: NEENA KAUR MD [place] [id number] Radiology Main Line: [phone] DIAGNOSTIC IMAGING REPORT Patient: HARJEET CALZADA : 1950 Age: 66 Sex: M MR #: [id number] DOS: 07/03/17 0333 Ordering MD: NEENA KAUR MD Location: E/R Room/Bed: PROCEDURE: CT BRAIN WITHOUT CONTRAST CLINICAL INDICATION: 66-year-old male with altered level of consciousness. TECHNIQUE: The study was performed utilizing [employer] VCT 64-slice CT scanner. Direct axial sections were obtained from the foramen magnum to the vertex without the use of intravenous contrast material. Sagittal and coronal reformations were obtained. One or more of the following dose reduction techniques were utilized: automated exposure control, adjustment of the mA and/ or kV according to patient's size or use of iterative reconstruction technique. The images were viewed on a PACS workstation. CTD/vol = 45.0 mGy; Total Exam DLP = 810.3 mGy-cm. COMPARISON: CT brain August 14, 2016. FINDINGS: There is [id number]-cu-[id number] degree of diffuse cortical and central atrophy with compensatory ventricular enlargement. There is no evidence for mass effect or midline shift. There are periventricular areas of decreased density consistent with microangiopathic ischemic changes. There is no evidence for acute intra or extra-axial blood. Calcifications are seen within the intracranial carotid arteries bilaterally. The bony calvarium is intact. There is mild mucosal thickening identified within the ethmoid air cells bilaterally and left maxillary sinus. No definite air-fluid levels are noted. The mastoid air cells are without significant soft tissue. IMPRESSION: 1. The intracranial contents are without significant interval change compared to the patient's prior CT scan from August 14, 2016. 2. [id number] diffuse atrophy. 3. Microangiopathic ischemic changes. 4. Vascular calcifications. 5. Mild mucosal thickening bilateral ethmoid air cells and left maxillary sinus. .Jasper Duncan MD, MD Date Time Electronically viewed and signed by .Jasper Duncan MD, MD on 07/03/2017 05:09 .M/ CC: NEENA KAUR MD EKG: Read by emergency physician Rate/Rhythm: Normal Sinus Rhythm 90 beats/min QRS, ST, T-waves: No ST elevation, no T inversion, first-degree AV block, lateral Q wave Impression: Normal EKG MEDICAL MAKING DECISION: The patient is a 66-year-old male, presenting to the ER because of acute encephalopathy of unclear etiology, acute non-STEMI, acute CHF, acute leukocytosis of unclear etiology. He was treated with Lasix 40 minute IV for acute CHF, aspirin 325 mg p.o. and one nitroglycerin ointment for acute non-STEMI, vancomycin IV and Zosyn IV empirically for acute leukocytosis of unclear etiology The differential diagnoses acute encephalopathy considered include but are not limited to medication non-compliance, alcohol intoxication or withdrawal, drug intoxication or withdrawal, endocrine disorder, trauma, CVA, tumor, metabolic encephalopathy, septic encephalopathy. The differential diagnoses for acute troponin elevation considered include but are not limited to acute coronary syndrome, acute myocardial infarction, pericarditis, pulmonary embolism, aortic dissection, pneumonia, pleural effusion , pneumothorax, GERD, chest wall pain, sepsis. Critical Care: Time: 35 minutes excluding all billable procedures. Treatments/Evaluations: Close monitoring and treatment of unstable vital signs, cardiorespiratory, and neurologic status, while maintaining tight balance of fluid, respiratory, and cardiac interventions. Departure Diagnosis: Primary Impression: Non-STEMI (non-ST elevated myocardial infarction) Additional Impressions: CHF (congestive heart failure) Encephalopathy Leukocytosis Condition: Stable Comments I discussed the findings with the patient. I discussed the patient with his physician Dr Owens at 5:20 am who was made aware of the lab, the treatment, the patient condition. The patient is admitted to telemetry NEENA KAUR MD Jul 03, 2017 06:14
--- NOTE | 2017-07-03 07:10 | RADRPT ---
PROCEDURE: CT Chest without contrast. CLINICAL INDICATION: Pneumonia. TECHNIQUE: Volumetrically acquired images of the thorax without intravenous contrast were reformat carrie in the axial, sagittal, and coronal planes. Radiation dose: CTDIvol (mGy) = 16.0; total DLP mGy-cm = 641. One or more of the following radiation dose techniques were used: -Automated exposure control. -Adjust of the mA and/or kV according to patient size. -Use of iterative reconstruction technique. COMPARISON: None. FINDINGS: There is cardiomegaly with postsurgical cardiac changes, including atrial appendage ligation. There are median sternotomy wires are intact. No pericardial effusion. Mild atherosclerotic aortic calcifications with extension into the supra-aortic branches. There are dense three-vessel coronary calcifications. There are small bilateral pleural effusions in the background of vascular congestion and hydrostatic interstitial edema. There is elevation of the right hemidiaphragm with mild segmental posterior de pendent atelectasis in the right lower lobe. Mild interstitial fibrotic changes are also evident. There is no focal consolidation, pneumothorax, or pleural effusions. There are multiple reactive lymph nodes in the mediastinum. There are subcarinal mediastinal sharla calcifications in keeping with prior granulomatous infection. Included upper abdomen demonstrates no significant abnormality. IMPRESSION: 1. Evaluation is limited by respiratory motion artifact. 2. Cardiomegaly with small bilateral pleural effusions and vascular congestion/edema. 3. Postop cardiac changes without complication or overt fluid collection that is identified by limi carrie noncontrast CT. 4. Advanced cardiovascular calcifications. RPTAT: EE .Sander Spencer MD, Date Time Electronically viewed and signed by .Sander Spencer MD, on 07/03/2017 07:14 .C/
[2017-07-03 07:16] LABS: OPIATES Positive (NEGATIVE)
[2017-07-03 07:22] LABS: BARBITURATES Negative (NEGATIVE); BENZODIAZEPINES Negative (NEGATIVE); CANNABINOIDS Negative (NEGATIVE); COCAINE Negative (NEGATIVE)
[2017-07-03] MEDS: morphine 4 MG/ML VIAL IV PRN ×3 (07:50→21:10)
[2017-07-03 07:51] LABS: ADD UMIC YES; UR ASCORBIC ACID NEGATIVE (NEGATIVE); UR BILIRUBIN (Dip) NEGATIVE (NEGATIVE); UR BLOOD (Dip) 1+ mg/dL (NEGATIVE); UR CLARITY CLEAR (CLEAR); UR COLOR YELLOW (YELLOW); UR GLUCOSE (Dip) NEGATIVE (NEGATIVE); UR KETONES (Dip) NEGATIVE (NEGATIVE); UR LEUKOCYTE ESTERASE (Dip) 3+ Leu/ul (NEGATIVE); UR MUCUS FEW /HPF (NONE SEEN); UR NITRITE (Dip) NEGATIVE (NEGATIVE); UR RBC 7 /HPF (0-5); UR SPECIFIC GRAVITY (Dip) 1.009 (1.003-1.030); UR TOTAL PROTEIN (Dip) NEGATIVE (NEGATIVE); UR UROBILINOGEN (Dip) NEGATIVE (NEGATIVE)
[2017-07-03] MEDS ORDERED: ASPIRIN (EC) 325 MG TAB PO SCH (09:00)
[2017-07-03] MEDS: FINASTERIDE 5 MG TAB PO SCH (09:34)
[2017-07-03] MEDS: SERTRALINE 50 MG TAB PO SCH (09:34)
[2017-07-03] MEDS: SPIRONOLACTONE 25 MG TAB PO SCH (09:34)
[2017-07-03] MEDS: FERROUS SULFATE (EC) 325 MG TAB PO SCH (09:34)
[2017-07-03] MEDS: ASCORBIC ACID 500 MG TAB PO SCH (09:34)
[2017-07-03] MEDS: BENAZEPRIL 10 MG TAB PO SCH (09:35)
[2017-07-03] MEDS: CLOPIDOGREL 75 MG TAB PO SCH (09:36)
[2017-07-03 13:08] LABS: CK-MB 1.73 ng/ml (0.0-2.4); TROPONIN-I 1.46 ng/ml (0.00-0.12)
[2017-07-03] MEDS ORDERED: VANCOMYCIN 1.5 GM in SOD CHLORIDE 0.9% 250 ML IVPB SCH (13:15)
[2017-07-03] MEDS: PIPER-TAZO 3.375 GM IV (PMX) 100 ML IVPB SCH ×2 (13:16→17:08)
[2017-07-03 13:20] VITALS: TEMP 98.9
--- NOTE | 2017-07-03 13:23 | CONS ---
Date/Time of Note Date/Time of Note DATE: 07/03/17 TIME: 13:11 Assessment/Plan Assessment/Plan Additional Assessment/Plan Cough, wheezing and shortness of breath Leukocytosis SIRS Elevated troponin CAD status post recent coronary artery bypass grafting with history of PCI Ischemic cardiomyopathy Tobacco use with likely history of COPD Hypertension Diabetes Peripheral arterial disease -Patient status post recent coronary artery bypass grafting at [facility]. Patient does admit to not having his medications filled upon discharge in the past 2 or 3 days and presents with cough, chills, shortness of breath. Chest CT with no evidence of significant volume overload but does have effusions. Patient is wheezing, likely element of COPD exacerbation. Would recommend nebulizer treatments, antibiotics as per primary team. Diuretic therapy. Troponins are elevated but patient denies chest discomfort and ECG without significant ischemic abnormalities and troponins are trending down, this is likely residual troponin elevation from CABG surgery. Would continue to trend troponins. Antiplatelet therapy, statin therapy and beta-cesar and CLAUDY inhibitor. Would repeat echocardiogram to evaluate LV function. Obtain records from [place]. Consultation Date/Type/Reason Admit Date/Time Type of Consultation: cv Reason for Consultation Shortness of breath and elevated troponin Hx of Present Illness This is a 66-year-old male with a past medical history of coronary artery disease, diabetes, peripheral arterial disease, hypertension, alcohol use who presents to the emergency room with shortness of breath, chills, cough. In discussion with patient, he was at [facility] and underwent coronary artery bypass grafting in the past few weeks. Patient states he was still short of breath even upon discharge upon going home. He was given prescriptions but has not filled his prescriptions. Over the past 2 or 3 days, patient with progressive worsening shortness of breath, cough and chills. He does complain of chest pain with coughing. He denies any dizziness, lightheadedness or palpitations. Because of worsening symptoms, he came to the emergency room for further evaluation and care. 12 point review of systems was performed with all pertinent positives and negatives mentioned above and all else is negative Past Medical History Peripheral arterial disease Medical History: coronary artery disease, diabetes, high cholesterol, hypertension Past Surgical History Hip surgery Past Surgical Hx: angioplasty, coronary bypass surgery Family History Significant Family History: no pertinent family hx Social History Alcohol Use: other (Patient states he quit approximately 8 months ago) Smoking Status: Former smoker (Patient states he quit prior to CABG approximately 10 days ago) Other Social History Lives at home Exam/Review of Systems Vital Signs Vitals Vital Signs Date Time Temp Pulse Resp B/P Pulse Ox O2 Delivery O2 Flow Rate FiO2 07/03/17 12:00 100.1 88 15 127/85 100 Nasal Cannula 2.0 Intake and Output 07/02/17 07/02/17 07/03/17 15:00 23:00 07:00 Output Total 450 ml Balance -450 ml Exam No apparent distress Constitutional: alert, oriented, well developed Head: normocephalic Respiratory: other (Coarse breath sounds bilaterally with mild scattered wheezing) Cardiovascular: other (S1-S2 heard), regular rate and rhythm, systolic murmur Gastrointestinal: bowel sounds, non-tender, other (No guarding), soft Extremities: other (Trace) Skin: other (Left lower extremity with incision with ecchymosis. Mid chest with surgical incision with no evidence of drainage) Results Result Diagram: 07/03/17 0330 07/03/17 0330 Results 24 hrs Laboratory Tests Test 07/03/17 03:30 07/03/17 05:33 07/03/17 05:59 07/03/17 07:42 White Blood Count 20.4 #H Red Blood Count 3.29 #L Hemoglobin 8.8 #L Hematocrit 28.3 #L Mean Corpuscular Volume 86.0 Mean Corpuscular Hemoglobin 26.7 L Mean Corpuscular Hemoglobin Concent 31.1 L Red Cell Distribution Width 14.9 H Platelet Count 350 # Mean Platelet Volume 9.9 Neutrophils % 78.3 H Lymphocytes % 10.2 L Monocytes % 7.0 Eosinophils % 0.9 Basophils % 0.2 Nucleated Red Blood Cells % 0.0 Neutrophils # 15.9 H Lymphocytes # 2.1 Monocytes # 1.4 H Eosinophils # 0.2 Basophils # 0.1 Nucleated Red Blood Cells # 0.0 Prothrombin Time 19.9 #H Prothrombin Time Ratio 1.6 INR International Normalized Ratio 1.68 Activated Partial Thromboplast Time 52.4 H Sodium Level 136 Potassium Level 5.0 Chloride Level 95 L Carbon Dioxide Level 25 Anion Gap 21 H Blood Urea Nitrogen 20 Creatinine 0.84 Glucose Level 131 Calcium Level 8.7 Total Bilirubin 0.3 Direct Bilirubin 0.00 Indirect Bilirubin 0.3 Aspartate Amino Transf (AST/SGOT) 57 H Alanine Aminotransferase (ALT/SGPT) 97 H Alkaline Phosphatase 143 H Troponin I 1.560 *H B-Type Natriuretic Peptide 30065 H Total Protein 7.0 Albumin 3.9 Globulin 3.10 Albumin/Globulin Ratio 1.25 Ethyl Alcohol Level < 10.0 Lactic Acid Level 0.9 0.9 Urine Color YELLOW Urine Clarity CLEAR Urine pH 6.0 Urine Specific [place] 1.009 Urine Ketones NEGATIVE Urine Nitrite NEGATIVE Urine Bilirubin NEGATIVE Urine Urobilinogen NEGATIVE Urine Leukocyte Esterase 3+ H Urine Microscopic RBC 7 H Urine Microscopic WBC 36 H Urine Mucus FEW A Urine Hemoglobin 1+ H Urine Glucose NEGATIVE Urine Total Protein NEGATIVE Urine Opiates Screen Positive Urine Barbiturates Negative Urine Amphetamines Screen Negative Urine Benzodiazepines Screen Negative Urine Cocaine Screen Negative Urine Cannabinoids Negative Test 07/03/17 12:00 07/03/17 12:20 Lactic Acid Level 0.9 Creatine Kinase 51 Creatine Kinase Index 3.4 Creatinine Kinase MB (Mass) 1.73 Troponin I 1.460 *H Medications Medications Current Medications Ascorbic Acid (Vitamin C) 500 mg DAILY PO Last administered on 07/03/17 09:34; Admin Dose 500 MG; Start 07/03/17 at 09:00 Aspirin (Ecotrin) 325 mg DAILY PO Last administered on 07/03/17 09:35; Admin Dose 325 MG; Start 07/03/17 at 09:00 Atorvastatin Calcium (Lipitor) 80 mg DAILY@21 PO ; Start 07/03/17 at 21:00 Benazepril HCl (Lotensin) 10 mg DAILY PO Last administered on 07/03/17 09:35; Admin Dose 10 MG; Start 07/03/17 at 09:00 Clopidogrel Bisulfate (plaVIX) 75 mg DAILY PO Last administered on 07/03/17 09: 36; Admin Dose 75 MG; Start 07/03/17 at 09:00 Ferrous Sulfate (Ferrous Sulfate (Ec)) 325 mg DAILY PO Last administered on 07/03 09:34; Admin Dose 325 MG; Start 07/03/17 at 09:00 Finasteride (Proscar) 5 mg DAILY PO Last administered on 07/03/17 09:34; Admin Dose 5 MG; Start 07/03/17 at 09:00 Pantoprazole (Protonix Tab) 40 mg DAILY@06 PO Last administered on 07/03/17 06: 04; Admin Dose 40 MG; Start 07/03/17 at 06:00 Sertraline HCl (Zoloft) 50 mg DAILY PO Last administered on 07/03/17 09:34; Admin Dose 50 MG; Start 07/03/17 at 09:00 Spironolactone (Aldactone) 25 mg DAILY PO Last administered on 07/03/17 09:34; Admin Dose 25 MG; Start 07/03/17 at 09:00 Tamsulosin HCl (Flomax) 0.4 mg HS PO ; Start 07/03/17 at 21:00 Morphine Sulfate (morphine) 4 mg Q4H PRN IV pain Last administered on 07/03/17 09:37; Admin Dose 4 MG; Start 07/03/17 at 06:00 Acetaminophen (Tylenol Tab) 650 mg Q4H PRN PO pain/fever; Start 07/03/17 at 06: 00 Ondansetron HCl 4 mg 4 mg Q4H PRN IV nausea Last administered on 07/03/17 07:50 ; Admin Dose 4 MG; Start 07/03/17 at 06:00 Piperacillin Sod/ Tazobactam Sod 100 ml @ 200 mls/hr Q6 IVPB ; Start 07/03/17 at 13:00 Vancomycin HCl/ Sodium Chloride (Vancocin/NS) 250 ml @ 83.333 mls/ hr Q12H IVPB ; Start 07/03/17 at 13:15 Procedures Procedures ECG demonstrates sinus rhythm at 90 bpm with first-degree AV block with MA interval 222 ms. Anterolateral Q waves, nonspecific ST abnormalities Barney Dow DO Jul 03, 2017 13:23
--- NOTE | 2017-07-03 13:45 | HP ---
Date/Time of Note Date/Time of Note DATE: 07/03/17 TIME: 13:15 Assessment/Plan VTE Prophylaxis VTE Prophylaxis Intervention: LMWH Assessment/Plan Assessment/Plan 66-year-old male with: 1. Respiratory distress, likely secondary to congestive heart failure exacerbation, patient is known to have cardiomyopathy with ejection fraction of 25%, he status post coronary artery bypass surgery and has been noncompliant with his medication since he did not even fill his prescriptions. Lasix IV for diuresis and also Aldactone p.o., patient will be started on beta- blockers and seems to be already on CLAUDY inhibitors, Lasix, spironolactone, aspirin and Plavix based on the MAR on admission, however this may be different post coronary artery bypass surgery therefore his most recent outpatient medications need to be verified. 2D echocardiogram pending Trend cardiac enzymes Further recommendations per cardiology, Dr. Dow. 2. Mild elevation of cardiac enzymes, likely just trending down postoperatively , continue to trend, resume cardiac medications. Follow-up 2D echocardiogram, monitor on telemetry 3. Leukocytosis: Unclear if stress demargination postoperatively, given the yellow productive sputum even if no infiltrate on chest x-ray OCT patient may have bronchitis, I agree with Zosyn that was started. Patient is a former smoker but only recently quit likely with COPD, nebulizer treatment will be ordered 4. Hyperlipidemia: Continue statin therapy 5. Benign prostatic hypertrophy: Continue Flomax 6. GERD: Continue PPIs 7. Major depressive disorder: Continue Zoloft Prophylaxis: Proton pump inhibitors for GI prophylaxis, Lovenox for DVT prophylaxis Disposition: Diuresis, trend enzymes, follow-up 2D echocardiogram, hopefully patient will be euvolemic soon and at discharge planning over the weekend or early next week HPI/ROS Admit Date/Time Admit Date/Time Hx of Present Illness Chief complaint: Chest pain, shortness of breath History of presenting illness: This is a 66-year-old male with coronary artery disease, tobacco use quit very recently, status post coronary artery bypass surgery a few days who reports that he was discharged from a hospital in [place] 3 days ago. He went home on oxygen, he does not remember how many liters he has been on. He was given prescriptions for his medications, he did not fill any of them. He complains of having severe shortness of breath within 24 hours of being home, he was also having chest pain across his chest, chills, increased cough with yellow sputum. He also reports dizziness. He denies any lower extremity edema, he reports orthopnea and dyspnea on exertion. He denies nausea, vomiting, Patient came to the emergency department early this morning, he had a chest x- ray and CAT scan of the chest that is confirming signs of for volume overload, his troponin is slightly elevated, Dr. Dow from cardiology will be seeing the patient. He was noted to have elevated white blood cell count of 20K, he has been started on Zosyn 2D echocardiogram is reordered, cardiac enzymes being trended, EKG shows sinus tachycardia no acute changes. He will be admitted to telemetry. ROS Constitutional: chills, fatigue Eyes: no complaints Cardiovascular: chest pain (Status post coronary artery bypass surgery with mediastinal sternotomy) Gastrointestinal: no complaints Genitourinary: no complaints Musculoskeletal: no complaints Skin: no complaints Neurologic: dizziness Psychological: no complaints PMH/Family/Social Past Medical History Coronary artery disease status post coronary artery bypass surgery a few days ago in [place] Hypertension Hyperlipidemia Gastroesophageal reflux disease Benign prostatic hypertrophy Heavy tobacco use until 10 days ago Past Surgical History Status post coronary artery bypass surgery in [place] few days ago Status post left hip arthroplasty a few years ago Status post cataract surgeries remotely Social History Alcohol Use: none Smoking Status: Former smoker (Patient used to smoke 2 packs/day for the past 40 years, he quit 10 days ago) Drug Use: none Exam/Review of Systems Vital Signs Vitals Vital Signs Date Time Temp Pulse Resp B/P Pulse Ox O2 Delivery O2 Flow Rate FiO2 07/03/17 12:00 100.1 88 15 127/85 100 Nasal Cannula 2.0 Intake and Output 07/02/17 07/02/17 07/03/17 15:00 23:00 07:00 Output Total 450 ml Balance -450 ml Exam Constitutional: alert, oriented, other (Obese), well developed Eyes: nl conjunctiva Respiratory: crackles/rales (Scattered), normal air movement, other ( Mediastinal sternotomy healing well), wheezing (Scattered expiratory wheezes) Cardiovascular: nl pulses, regular rate and rhythm Gastrointestinal: non-tender, soft Musculoskeletal: nl extremities to inspection Extremities: normal pulses, other (No edema, clubbing or cyanosis) 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: PRE ALGEBRA 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 II-XII intact, nl mental status, nl speech, nl strength Labs Result Diagram: 07/03/17 0330 07/03/17 0330 Medications Medications Current Medications Ascorbic Acid (Vitamin C) 500 mg DAILY PO Last administered on 07/03/17 09:34; Admin Dose 500 MG; Start 07/03/17 at 09:00 Aspirin (Ecotrin) 325 mg DAILY PO Last administered on 07/03/17 09:35; Admin Dose 325 MG; Start 07/03/17 at 09:00 Atorvastatin Calcium (Lipitor) 80 mg DAILY@21 PO ; Start 07/03/17 at 21:00 Benazepril HCl (Lotensin) 10 mg DAILY PO Last administered on 07/03/17 09:35; Admin Dose 10 MG; Start 07/03/17 at 09:00 Clopidogrel Bisulfate (plaVIX) 75 mg DAILY PO Last administered on 07/03/17 09: 36; Admin Dose 75 MG; Start 07/03/17 at 09:00 Ferrous Sulfate (Ferrous Sulfate (Ec)) 325 mg DAILY PO Last administered on 07/03 09:34; Admin Dose 325 MG; Start 07/03/17 at 09:00 Finasteride (Proscar) 5 mg DAILY PO Last administered on 07/03/17 09:34; Admin Dose 5 MG; Start 07/03/17 at 09:00 Pantoprazole (Protonix Tab) 40 mg DAILY@06 PO Last administered on 07/03/17 06: 04; Admin Dose 40 MG; Start 07/03/17 at 06:00 Sertraline HCl (Zoloft) 50 mg DAILY PO Last administered on 07/03/17 09:34; Admin Dose 50 MG; Start 07/03/17 at 09:00 Spironolactone (Aldactone) 25 mg DAILY PO Last administered on 07/03/17 09:34; Admin Dose 25 MG; Start 07/03/17 at 09:00 Tamsulosin HCl (Flomax) 0.4 mg HS PO ; Start 07/03/17 at 21:00 Morphine Sulfate (morphine) 4 mg Q4H PRN IV pain Last administered on 07/03/17 09:37; Admin Dose 4 MG; Start 07/03/17 at 06:00 Acetaminophen (Tylenol Tab) 650 mg Q4H PRN PO pain/fever; Start 07/03/17 at 06: 00 Ondansetron HCl 4 mg 4 mg Q4H PRN IV nausea Last administered on 07/03/17t 07:50 ; Admin Dose 4 MG; Start 07/03/17 at 06:00 Piperacillin Sod/ Tazobactam Sod 100 ml @ 200 mls/hr Q6 IVPB ; Start 07/03/17 at 13:00 Vancomycin HCl/ Sodium Chloride (Vancocin/NS) 250 ml @ 83.333 mls/ hr Q12H IVPB ; Start 07/03/17 at 13:15 Procedures Procedures PROCEDURE: CT Chest without contrast. CLINICAL INDICATION: Pneumonia. TECHNIQUE: Volumetrically acquired images of the thorax without intravenous contrast were reformatted in the axial, sagittal, and coronal planes. Radiation dose: CTDIvol (mGy) = 16.0; total DLP mGy-cm = 641. One or more of the following radiation dose techniques were used: -Automated exposure control. -Adjust of the mA and/or kV according to patient size. -Use of iterative reconstruction technique. COMPARISON: None. FINDINGS: There is cardiomegaly with postsurgical cardiac changes, including atrial appendage ligation. There are median sternotomy wires are intact. No pericardial effusion. Mild atherosclerotic aortic calcifications with extension into the supra-aortic branches. There are dense three-vessel coronary calcifications. There are small bilateral pleural effusions in the background of vascular congestion and hydrostatic interstitial edema. There is elevation of the right hemidiaphragm with mild segmental posterior dependent atelectasis in the right lower lobe. Mild interstitial fibrotic changes are also evident. There is no focal consolidation, pneumothorax, or pleural effusions. There are multiple reactive lymph nodes in the mediastinum. There are subcarinal mediastinal sharla calcifications in keeping with prior granulomatous infection. Included upper abdomen demonstrates no significant abnormality. IMPRESSION: 1. Evaluation is limited by respiratory motion artifact. 2. Cardiomegaly with small bilateral pleural effusions and vascular congestion/ edema. 3. Postop cardiac changes without complication or overt fluid collection that is identified by limited noncontrast CT. 4. Advanced cardiovascular calcifications. RPTAT: EE .Sander Spencer MD, MD Date Time Electronically viewed and signed by .Sander Spencer MD, MD on 07/03/2017 07:14 .C/ PROCEDURE: CT BRAIN WITHOUT CONTRAST CLINICAL INDICATION: 66-year-old male with altered level of consciousness. TECHNIQUE: The study was performed utilizing [email or web address] VCT 64-slice CT scanner. Direct axial sections were obtained from the foramen magnum to the vertex without the use of intravenous contrast material. Sagittal and coronal reformations were obtained. One or more of the following dose reduction techniques were utilized: automated exposure control, adjustment of the mA and/ or kV according to patient's size or use of iterative reconstruction technique. The images were viewed on a PACS workstation. CTD/vol = 45.0 mGy; Total Exam DLP = 810.3 mGy-cm. COMPARISON: CT brain August 14, 2016. FINDINGS: There is eutu-yu-iwixihdz degree of diffuse cortical and central atrophy with compensatory ventricular enlargement. There is no evidence for mass effect or midline shift. There are periventricular areas of decreased density consistent with microangiopathic ischemic changes. There is no evidence for acute intra or extra-axial blood. Calcifications are seen within the intracranial carotid arteries bilaterally. The bony calvarium is intact. There is mild mucosal thickening identified within the ethmoid air cells bilaterally and left maxillary sinus. No definite air-fluid levels are noted. The mastoid air cells are without significant soft tissue. IMPRESSION: 1. The intracranial contents are without significant interval change compared to the patient's prior CT scan from August 14, 2016. 2. Llmk-zo-mudeodpx diffuse atrophy. 3. Microangiopathic ischemic changes. 4. Vascular calcifications. 5. Mild mucosal thickening bilateral ethmoid air cells and left maxillary sinus. .Jasper uDncan MD, MD Date Time Electronically viewed and signed by .Jasper Duncan MD, MD on 07/03/2017 05:09 .M/ CC: NEENA KUAR MD PROCEDURE: CHEST - 1 VIEW CLINICAL INDICATION: 66-year-old male with shortness of breath. TECHNIQUE: A single frontal AP upright portable view of the chest was performed. The images were reviewed on a PACS workstation. COMPARISON: Chest x-ray May 31, 2017. FINDINGS: The patient has had a prior median sternotomy. The cardiomediastinal silhouette is moderately enlarged. There is a left atrial appendage closure device. There is elevation right hemidiaphragm. There is mild pulmonary vascular congestion. There is no evidence for focal consolidation. There is no evidence for pneumothorax. IMPRESSION: 1. Status post median sternotomy. 2. Cardiomegaly with left atrial appendage closure device. 3. Pulmonary vascular congestion. 4. Elevated right hemidiaphragm. .Jasper Duncan MD, MD Date Time Electronically viewed and signed by .Jasper Duncan MD, MD on 07/03/2017 05:12 .DEE MENDEZ Jul 03, 2017 13:26
--- NOTE | 2017-07-03 14:11 | RADRPT ---
Echocardiogram Report Patient Name: HARJEET CALZADA Gender: Male Date: 1950 Study Date: 03-Jul-2017 Manager [employer]: Pilar Herrera RDCS Location: 12 Ref. Physician: HECTOR BERNABE Quality: Adequate Procedures: Transthoracic echocardiogram with complete 2D, M-Mode, and doppler examination. Indications: Congestive Heart Failure. 2D/M Mode Doppler Measurement Value Normal Ranges Measurement Value Normal Ranges LVIDd 2D 6.8 3.5 - 5.6 cm MARY Vmax 3.5 cm2 LVIDs 2D 6.3 2.1 - 4.1 cm MARY VTI 3.5 cm2 LVPWd 2D 1.2 0.6 - 1.1 cm AV Peak Edgar 1.3 m/sec IVSd 2D 1.2 0.6 - 1.1 cm AV Peak PG 6.7 mmHg AoR Diam 2D 3.5 2.0 - 3.7 cm LVOT Mean Edgar 0.7 m/sec EDV 2D 238.9 cm3 LVOT Mean PG 2.3 mmHg ESV 2D 251.8 cm3 LVOT Peak Edgar 1.0 m/sec LA Dimen 2D 4.9 2.3 - 4.0 cm LVOT Peak PG 4.3 mmHg LVOT Diam 2.4 cm LVOT VTI 19.0 cm MV PHT 106.3 msec MV Peak Edgar 2.1 m/sec MV Peak PG 18.3 mmHg MV Mean Edgar 1.1 m/sec MV Mean PG 6.3 mmHg MV PHT 106.3 msec MV VTI 49.6 cm MVA PHT 2.1 cm2 MVA VTI 1.7 cm TR Peak Edgar 2.8 m/sec TR Peak PG 31.1 mmHg RVSP 39.0 mmHg Findings Left Ventricle: Mild concentric left ventricular hypertrophy. Moderate enlargement of left ventricle cavity. Severe left ventricular systolic dysfunction. Ejection fraction is visually estimated at 20 %. Abnormal Diastolic Function. Right Ventricle: Normal right ventricular size. Normal right ventricular systolic function. Left Atrium: The left atrium is normal in size. Right Atrium: The right atrium is normal in size. Mitral Valve: No mitral valve regurgitation is seen. Mitral Valve Bio Prosthesis. MeanPG 6.30 mmHg. Aortic Valve: Normal appearance of the aortic valve. No significant aortic stenosis or insufficiency. Tricuspid Valve: Normal appearance of the tricuspid valve. Estimated peak PA systolic pressure 39 mmHg. There is mild tricuspid regurgitation. Pulmonic Valve: Normal pulmonic valve appearance. There is mild pulmonic regurgitation. Pericardium: Trivial pericardial effusion. Aorta: Normal aortic root. IVC: Dilated IVC with respiratory collapse consistent with elevated right atrial pressure. Conclusions 1.Mild concentric left ventricular hypertrophy. Moderate enlargement of left ventricle cavity. Severe left ventricular systolic dysfunction. Ejection fraction is visually estimated at 20 %. Abnormal Diastolic Function. 2.Normal right ventricular size. Normal right ventricular systolic function. 3.The left atrium is normal in size. 4.The right atrium is normal in size. 5.Mitral Valve Bio Prosthesis. No mitral valve regurgitation is seen. 6.No significant aortic stenosis or insufficiency. 7.Estimated peak PA systolic pressure 39 mmHg. There is mild tricuspid regurgitation. 8.There is mild pulmonic regurgitation. 9.Trivial pericardial effusion. Electronically Signed By: Barney Dow 03-Jul-2017 14:10:36 [id number] Patient Name: HARJEET CALZDAA Study Date: 03-Jul-2017 [id number]
[2017-07-03 15:14] VITALS: BP 118/67; PULSE 88; RESP 20
[2017-07-03 15:30] VITALS: Ht 172.7 cm; Wt 87.4 kg
[2017-07-03 16:01] VITALS: BP 107/67; RESP 20
[2017-07-03 16:11] VITALS: PULSE 86
[2017-07-03] MEDS: FUROSEMIDE 40 MG INJ IV SCH (17:08)
[2017-07-03 20:00] VITALS: BP 108/67; RESP 20
[2017-07-03 20:08] VITALS: PULSE 94
[2017-07-03] MEDS: TAMSULOSIN (SR) 0.4 MG CAP PO SCH (20:36)
[2017-07-03] MEDS: ATORVASTATIN 80 MG TAB PO SCH (20:36)
[2017-07-04] VITALS (12 sets, daily range): BP systolic 100–116; BP diastolic 62–69; PULSE 78–86; RESP 17–20
[2017-07-04] MEDS: HYDROCODONE/APAP (5/325) TAB PO PRN ×3 (00:42→11:04)
[2017-07-04] MEDS: PIPER-TAZO 3.375 GM IV (PMX) 100 ML IVPB SCH ×4 (00:44→17:40)
[2017-07-04] MEDS: VANCOMYCIN 1 GM in NS 250 ML IVPB SCH ×2 (03:59→14:49)
[2017-07-04] MEDS: PANTOPRAZOLE (EC) 40 MG TAB PO SCH (05:59)
[2017-07-04] MEDS: FUROSEMIDE 40 MG INJ IV SCH ×2 (06:00→17:41)
[2017-07-04 08:02] LABS: BASOPHILS % 0.3 % (0.0-2.0); EOSINOPHILS # 0.2 10^3/ul (0.0-0.5); EOSINOPHILS % 1.7 % (0.0-7.0); HEMATOCRIT 27.7 % (42.0-52.0); HEMOGLOBIN 8.8 g/dl (14.0-18.0); LYMPHOCYTES # 1.6 10^3/ul (0.8-2.9); LYMPHOCYTES % 13.8 % (15.0-51.0); MEAN CORPUSCULAR HEMOGLOBIN 27.6 pg (29.0-33.0); MEAN CORPUSCULAR HGB CONC 31.8 g/dl (32.0-37.0); MEAN CORPUSCULAR VOLUME 86.8 fl (82.0-101.0); MONOCYTE # 0.9 10^3/ul (0.3-0.9); MONOCYTES % 7.9 % (0.0-11.0); NEUTROPHIL # 8.8 10^3/ul (1.6-7.5); PLATELET COUNT 356 10^3/UL (140-415); RED BLOOD COUNT 3.19 10^6/ul (4.70-6.10); RED CELL DISTRIBUTION WIDTH 14.7 % (11.5-14.5); WHITE BLOOD COUNT 11.8 10^3/ul (4.8-10.8)
[2017-07-04 08:19] LABS: CHOL/HDL RATIO 3.6 RATIO; PHOSPHORUS 3.5 mg/dl (2.5-4.9)
[2017-07-04 08:25] LABS: ALBUMIN 3.7 g/dl (3.3-4.9); ALBUMIN/GLOBULIN RATIO 1.23; BILIRUBIN,INDIRECT 0.5 mg/dl (0-1.1); BILIRUBIN,TOTAL 0.5 mg/dl (0.2-1.3); CALCIUM 8.2 mg/dl (8.4-10.2); CREATININE 0.93 mg/dl (0.61-1.24); TOTAL PROTEIN 6.7 g/dl (6.1-8.1)
[2017-07-04 08:41] LABS: CK-MB 1.51 ng/ml (0.0-2.4); TROPONIN-I 1.38 ng/ml (0.00-0.12)
[2017-07-04] MEDS: FERROUS SULFATE (EC) 325 MG TAB PO SCH (08:53)
[2017-07-04] MEDS: FINASTERIDE 5 MG TAB PO SCH (08:53)
[2017-07-04] MEDS: SERTRALINE 50 MG TAB PO SCH (08:53)
[2017-07-04] MEDS: SPIRONOLACTONE 25 MG TAB PO SCH (08:53)
[2017-07-04] MEDS: CLOPIDOGREL 75 MG TAB PO SCH (08:53)
[2017-07-04] MEDS: ASCORBIC ACID 500 MG TAB PO SCH (08:53)
[2017-07-04] MEDS: ASPIRIN (EC) 81 MG TAB PO SCH (08:53)
[2017-07-04] MEDS: BENAZEPRIL 10 MG TAB PO SCH (08:54)
[2017-07-04] MEDS: ENOXAPARIN 40 MG/0.4 ML SYG SC SCH (08:55)
--- NOTE | 2017-07-04 11:26 | PN ---
Date/Time of Note Date/Time of Note DATE: 07/04/17 TIME: 11:24 Assessment/Plan VTE Prophylaxis VTE Prophylaxis Intervention: other Lines/Catheters IV Catheter Type (from Nrsg): Saline Lock Assessment/Plan Assessment/Plan 1. card: chf, cont diuresis (b) s/p MVR wih prosthetic valve (c) s/p CABG and NSTEMI at [facility] (d) a fib 2. pulm: atelectasis, recheck xray 3. leukocytosis much improved, ?reactive to chf rather than infectious related Subjective 24 Hr Interval Summary Free Text/Dictation no complaints, feels better, some ambulation Exam/Review of Systems Vital Signs Vitals Vital Signs Date Time Temp Pulse Resp B/P Pulse Ox O2 Delivery O2 Flow Rate FiO2 07/04/17 08:20 Nasal Cannula 2.0 07/04/17 08:18 98.6 85 18 111/65 98 Intake and Output 07/03/17 07/03/17 07/04/17 15:00 23:00 07:00 Intake Total 100 ml 1300 ml Output Total 1100 ml Balance 100 ml 200 ml Exam nad, ctab, rrr, soft nt, no edema Results Result Diagram: 07/04/17 0712 07/04/17 0712 Results 24 hrs Laboratory Tests Test 07/03/17 12:00 07/03/17 12:20 07/04/17 07:12 Lactic Acid Level 0.9 Creatine Kinase 51 38 Creatine Kinase Index 3.4 4.0 Creatinine Kinase MB (Mass) 1.73 1.51 Troponin I 1.460 *H 1.380 *H White Blood Count 11.8 #H Red Blood Count 3.19 L Hemoglobin 8.8 L Hematocrit 27.7 L Mean Corpuscular Volume 86.8 Mean Corpuscular Hemoglobin 27.6 L Mean Corpuscular Hemoglobin Concent 31.8 L Red Cell Distribution Width 14.7 H Platelet Count 356 Mean Platelet Volume 9.0 Neutrophils % 75.0 Lymphocytes % 13.8 L Monocytes % 7.9 Eosinophils % 1.7 Basophils % 0.3 Nucleated Red Blood Cells % 0.0 Neutrophils # 8.8 H Lymphocytes # 1.6 Monocytes # 0.9 Eosinophils # 0.2 Basophils # 0.0 Nucleated Red Blood Cells # 0.0 Sodium Level 137 Potassium Level 4.0 Chloride Level 95 L Carbon Dioxide Level 28 Anion Gap 18 H Blood Urea Nitrogen 15 Creatinine 0.93 Glucose Level 135 Calcium Level 8.2 L Phosphorus Level 3.5 Magnesium Level 2.0 Total Bilirubin 0.5 Direct Bilirubin 0.00 Indirect Bilirubin 0.5 Aspartate Amino Transf (AST/SGOT) 26 # Alanine Aminotransferase (ALT/SGPT) 75 H Alkaline Phosphatase 126 H Total Protein 6.7 Albumin 3.7 Globulin 3.00 Albumin/Globulin Ratio 1.23 Triglycerides Level 91 Cholesterol Level 109 LDL Cholesterol, Calculated 61 HDL Cholesterol 30 Cholesterol/HDL Ratio 3.6 Medications Medications Current Medications Ascorbic Acid (Vitamin C) 500 mg DAILY PO Last administered on 07/04/17 08:53; Admin Dose 500 MG; Start 07/03/17 at 09:00 Atorvastatin Calcium (Lipitor) 80 mg DAILY@21 PO Last administered on 07/03/17 20:36; Admin Dose 80 MG; Start 07/03/17 at 21:00 Benazepril HCl (Lotensin) 10 mg DAILY PO Last administered on 07/04/17 08:54; Admin Dose 10 MG; Start 07/03/17 at 09:00 Clopidogrel Bisulfate (plaVIX) 75 mg DAILY PO Last administered on 07/04/17 08: 53; Admin Dose 75 MG; Start 07/03/17 at 09:00 Ferrous Sulfate (Ferrous Sulfate (Ec)) 325 mg DAILY PO Last administered on 07/04 08:53; Admin Dose 325 MG; Start 07/03/17 at 09:00 Finasteride (Proscar) 5 mg DAILY PO Last administered on 07/04/17 08:53; Admin Dose 5 MG; Start 07/03/17 at 09:00 Pantoprazole (Protonix Tab) 40 mg DAILY@06 PO Last administered on 07/04/17 05: 59; Admin Dose 40 MG; Start 07/03/17 at 06:00 Sertraline HCl (Zoloft) 50 mg DAILY PO Last administered on 07/04/17 08:53; Admin Dose 50 MG; Start 07/03/17 at 09:00 Spironolactone (Aldactone) 25 mg DAILY PO Last administered on 07/04/17 08:53; Admin Dose 25 MG; Start 07/03/17 at 09:00 Tamsulosin HCl (Flomax) 0.4 mg HS PO Last administered on 07/03/17 20:36; Admin Dose 0.4 MG; Start 07/03/17 at 21:00 Morphine Sulfate (morphine) 4 mg Q4H PRN IV pain Last administered on 07/03/17 21:10; Admin Dose 4 MG; Start 07/03/17 at 06:00 Acetaminophen (Tylenol Tab) 650 mg Q4H PRN PO pain/fever Last administered on 20:37; Admin Dose 650 MG; Start 07/03/17 at 06:00 Ondansetron HCl 4 mg 4 mg Q4H PRN IV nausea Last administered on 07/03/17 07:50 ; Admin Dose 4 MG; Start 07/03/17 at 06:00 Piperacillin Sod/ Tazobactam Sod (Zosyn 3.375gm/ 100 ml (Pmx)) 100 ml @ 200 mls /hr Q6 IVPB Last administered on 07/04/17 11:03; Admin Dose 200 MLS/HR; Start 07/03/17 at 13:00 Aspirin (Halfprin) 81 mg DAILY PO Last administered on 07/04/17 08:53; Admin Dose 81 MG; Start 07/04/17 at 09:00 Enoxaparin Sodium (Lovenox) 40 mg DAILY SC Last administered on 07/04/17 08:55 ; Admin Dose 40 MG; Start 07/04/17 at 09:00 Carvedilol 3.125 mg 3.125 mg BID PO Last administered on 07/04/17 08:53; Admin Dose 3.125 MG; Start 07/03/17 at 21:00 Vancomycin HCl (Vancocin) 250 ml @ 125 mls/hr Q12H IVPB Last administered on 03:59; Admin Dose 125 MLS/HR; Start 07/04/17 at 03:00 Acetaminophen/ Hydrocodone Bitart ([place]win (5/325)) 1 tab Q4H PRN PO PAIN Last administered on 07/04/17 11:04; Admin Dose 1 TAB; Start 07/03/17 at 21:00 QUIRINO GONCALVES MD Jul 04, 2017 11:26
--- NOTE | 2017-07-04 16:16 | RADRPT ---
PROCEDURE: Two-view chest CLINICAL INDICATION: shortness of breath TECHNIQUE: AP and lateral views of the chest the chest were obtained COMPARISON: 09/07/2016 FINDINGS: The heart prominently enlarged which is increased from prior study. Sternotomy changes are present. The pulmonary vasculature are prominent. The aorta demonstrates atherosclerotic calcifications. Bilateral interstitial opacities are seen with a small left sided effusion. There is no visible rig ht-sided effusion. There is no pneumothorax. Degenerative changes are seen within the thoracic spi ne. There is no acute osseous abnormality. IMPRESSION: Development of cardiomegaly and vascular congestion with a likely trace left effusion. Sternotomy changes are present within the thorax. RPTAT: AA .Faizan Salinas MD, Date Time Electronically viewed and signed by .Faizan Salinas MD, MD on 07/04/2017 16:16 .Vasiliy/
--- NOTE | 2017-07-04 18:11 | CONS ---
Date/Time of Note Date/Time of Note DATE: 07/04/17 TIME: 18:05 Consult Date/Type/Reason Admit Date/Time Jul 03, 2017 at 14:57 Initial Consult Date Type of Consultation: cv Subjective d/w staff and rhythm was reviewed. pt remains in NSR no chest pain or pressure now but still has sob. OBJECTIVE: General: no acute distress HEENT: NC/AT. pupils are equal. round. NECK: NO JVD. no stridor. CV: RRR. systolic murmur; no gallop or rubs. CHEST; S/P recent sternotomy. PULM: no wheezing. + b/l basilar rhonchi. GI: SOFT, NT, ND, no rebound or guarding Extremity: trace B/L LE edema. no clubbing. neuro: awake and alert, OX3. Psych: calm and pleasant rectal: deferred : normal ECHO: 1. Mild concentric left ventricular hypertrophy. Moderate enlargement of left ventricle cavity. Severe left ventricular systolic dysfunction. Ejection fraction is visually estimated at 20 %. Abnormal Diastolic Function. 2. Normal right ventricular size. Normal right ventricular systolic function. 3. The left atrium is normal in size. 4. The right atrium is normal in size. 5. Mitral Valve Bio Prosthesis. No mitral valve regurgitation is seen. 6. No significant aortic stenosis or insufficiency. 7. Estimated peak PA systolic pressure 39 mmHg. There is mild tricuspid regurgitation. 8. There is mild pulmonic regurgitation. 9. Trivial pericardial effusion. Objective Vital Signs Date Time Temp Pulse Resp B/P Pulse Ox O2 Delivery O2 Flow Rate FiO2 07/04/17 16:56 98.3 87 18 106/69 99 07/04/17 08:20 Nasal Cannula 2.0 Intake and Output 07/03/17 07/03/17 07/04/17 15:00 23:00 07:00 Intake Total 100 ml 1300 ml Output Total 1100 ml Balance 100 ml 200 ml Results/Medications Result Diagram: 07/04/1771107/04/17711 Results 24 hrs Laboratory Tests Test 07/04/17 07:12 White Blood Count 11.8 #H Red Blood Count 3.19 L Hemoglobin 8.8 L Hematocrit 27.7 L Mean Corpuscular Volume 86.8 Mean Corpuscular Hemoglobin 27.6 L Mean Corpuscular Hemoglobin Concent 31.8 L Red Cell Distribution Width 14.7 H Platelet Count 356 Mean Platelet Volume 9.0 Neutrophils % 75.0 Lymphocytes % 13.8 L Monocytes % 7.9 Eosinophils % 1.7 Basophils % 0.3 Nucleated Red Blood Cells % 0.0 Neutrophils # 8.8 H Lymphocytes # 1.6 Monocytes # 0.9 Eosinophils # 0.2 Basophils # 0.0 Nucleated Red Blood Cells # 0.0 Sodium Level 137 Potassium Level 4.0 Chloride Level 95 L Carbon Dioxide Level 28 Anion Gap 18 H Blood Urea Nitrogen 15 Creatinine 0.93 Glucose Level 135 Calcium Level 8.2 L Phosphorus Level 3.5 Magnesium Level 2.0 Total Bilirubin 0.5 Direct Bilirubin 0.00 Indirect Bilirubin 0.5 Aspartate Amino Transf (AST/SGOT) 26 # Alanine Aminotransferase (ALT/SGPT) 75 H Alkaline Phosphatase 126 H Creatine Kinase 38 Creatine Kinase Index 4.0 Creatinine Kinase MB (Mass) 1.51 Troponin I 1.380 *H Total Protein 6.7 Albumin 3.7 Globulin 3.00 Albumin/Globulin Ratio 1.23 Triglycerides Level 91 Cholesterol Level 109 LDL Cholesterol, Calculated 61 HDL Cholesterol 30 Cholesterol/HDL Ratio 3.6 Medications Current Medications Ascorbic Acid (Vitamin C) 500 mg DAILY PO Last administered on 07/04/17 08:53; Admin Dose 500 MG; Start 07/03/17 at 09:00 Atorvastatin Calcium (Lipitor) 80 mg DAILY@21 PO Last administered on 07/03/17 20:36; Admin Dose 80 MG; Start 07/03/17 at 21:00 Benazepril HCl (Lotensin) 10 mg DAILY PO Last administered on 07/04/17 08:54; Admin Dose 10 MG; Start 07/03/17 at 09:00 Clopidogrel Bisulfate (plaVIX) 75 mg DAILY PO Last administered on 07/04/17 08: 53; Admin Dose 75 MG; Start 07/03/17 at 09:00 Ferrous Sulfate (Ferrous Sulfate (Ec)) 325 mg DAILY PO Last administered on 07/04 08:53; Admin Dose 325 MG; Start 07/03/17 at 09:00 Finasteride (Proscar) 5 mg DAILY PO Last administered on 07/04/17 08:53; Admin Dose 5 MG; Start 07/03/17 at 09:00 Pantoprazole (Protonix Tab) 40 mg DAILY@06 PO Last administered on 07/04/17 05: 59; Admin Dose 40 MG; Start 07/03/17 at 06:00 Sertraline HCl (Zoloft) 50 mg DAILY PO Last administered on 07/04/17 08:53; Admin Dose 50 MG; Start 07/03/17 at 09:00 Spironolactone (Aldactone) 25 mg DAILY PO Last administered on 07/04/17 08:53; Admin Dose 25 MG; Start 07/03/17 at 09:00 Tamsulosin HCl (Flomax) 0.4 mg HS PO Last administered on 07/03/17 20:36; Admin Dose 0.4 MG; Start 07/03/17 at 21:00 Morphine Sulfate (morphine) 4 mg Q4H PRN IV pain Last administered on 07/03/17 21:10; Admin Dose 4 MG; Start 07/03/17 at 06:00 Acetaminophen (Tylenol Tab) 650 mg Q4H PRN PO pain/fever Last administered on 20:37; Admin Dose 650 MG; Start 07/03/17 at 06:00 Ondansetron HCl 4 mg 4 mg Q4H PRN IV nausea Last administered on 07/03/17 07:50 ; Admin Dose 4 MG; Start 07/03/17 at 06:00 Piperacillin Sod/ Tazobactam Sod (Zosyn 3.375gm/ 100 ml (Pmx)) 100 ml @ 200 mls /hr Q6 IVPB Last administered on 07/04/17 17:40; Admin Dose 200 MLS/HR; Start 07/03/17 at 13:00 Aspirin (Halfprin) 81 mg DAILY PO Last administered on 07/04/17 08:53; Admin Dose 81 MG; Start 07/04/17 at 09:00 Enoxaparin Sodium (Lovenox) 40 mg DAILY SC Last administered on 07/04/17 08:55 ; Admin Dose 40 MG; Start 07/04/17 at 09:00 Carvedilol 3.125 mg 3.125 mg BID PO Last administered on 07/04/17 08:53; Admin Dose 3.125 MG; Start 07/03/17 at 21:00 Vancomycin HCl (Vancocin) 250 ml @ 125 mls/hr Q12H IVPB Last administered on 14:49; Admin Dose 125 MLS/HR; Start 07/04/17 at 03:00 Acetaminophen/ Hydrocodone Bitart ([place] (5/325)) 1 tab Q4H PRN PO PAIN Last administered on 07/04/17t 11:04; Admin Dose 1 TAB; Start 07/03/17 at 21:00 Miscellaneous Information (*Rx Drug Level Order Reminder*) VANCO TROUGH @ 0, 200 ON... ONCE ONCE XX ; Start 07/05/17 at 02:00; Stop 07/05/17 at 02:01 Assessment/Plan Chief Complaint/Hosp Course A/P: 1. CHF: due to severe systolic dysfunction. 2. CAD; 3/ S/P recent MVR 4. S/P CABG 5. Anemia 6. ? pneumonia 7.HTN 8. / Dyslipidemia. 9. severe cardiomyopathy. REC: cont ASA coreg diuresis for now. correct lytes prn add dig. add aldactonte CLAUDY-I Problems: RALF JIMENEZ MD Jul 04, 2017 18:11
[2017-07-04] MEDS: morphine 4 MG/ML VIAL IV PRN (18:53)
[2017-07-04] MEDS: TAMSULOSIN (SR) 0.4 MG CAP PO SCH (21:38)
[2017-07-04] MEDS: ATORVASTATIN 80 MG TAB PO SCH (21:39)
[2017-07-04] MEDS: DIGOXIN 0.125 MG TAB PO SCH (21:39)
[2017-07-05] VITALS (14 sets, daily range): BP systolic 97–119; BP diastolic 59–71; PULSE 75–154; RESP 18–20
[2017-07-05] MEDS: HYDROCODONE/APAP (5/325) TAB PO PRN ×3 (00:12→20:03)
[2017-07-05] MEDS: PIPER-TAZO 3.375 GM IV (PMX) 100 ML IVPB SCH ×4 (00:17→17:38)
[2017-07-05] MEDS: VANCOMYCIN 1 GM in NS 250 ML IVPB SCH (03:38)
[2017-07-05] MEDS: morphine 4 MG/ML VIAL IV PRN (03:52)
[2017-07-05] MEDS: PANTOPRAZOLE (EC) 40 MG TAB PO SCH (05:31)
[2017-07-05] MEDS: FUROSEMIDE 40 MG INJ IV SCH ×2 (05:32→17:39)
[2017-07-05 07:12] LABS: BASOPHILS % 0.3 % (0.0-2.0); EOSINOPHILS # 0.1 10^3/ul (0.0-0.5); EOSINOPHILS % 0.8 % (0.0-7.0); HEMATOCRIT 26.7 % (42.0-52.0); HEMOGLOBIN 8.5 g/dl (14.0-18.0); LYMPHOCYTES # 1.4 10^3/ul (0.8-2.9); LYMPHOCYTES % 10.4 % (15.0-51.0); MEAN CORPUSCULAR HEMOGLOBIN 27.1 pg (29.0-33.0); MEAN CORPUSCULAR HGB CONC 31.8 g/dl (32.0-37.0); MEAN PLATELET VOLUME 9.2 fl (7.4-10.4); MONOCYTE # 0.9 10^3/ul (0.3-0.9); MONOCYTES % 6.8 % (0.0-11.0); NEUTROPHIL # 10.5 10^3/ul (1.6-7.5); NEUTROPHILS % 80.8 % (39.0-77.0); PLATELET COUNT 366 10^3/UL (140-415); RED BLOOD COUNT 3.14 10^6/ul (4.70-6.10); RED CELL DISTRIBUTION WIDTH 14.6 % (11.5-14.5)
[2017-07-05 07:40] LABS: ALBUMIN 3.7 g/dl (3.3-4.9); ALBUMIN/GLOBULIN RATIO 1.23; BILIRUBIN,INDIRECT 0.5 mg/dl (0-1.1); BILIRUBIN,TOTAL 0.5 mg/dl (0.2-1.3); CALCIUM 8.2 mg/dl (8.4-10.2); CREATININE 0.9 mg/dl (0.61-1.24); POTASSIUM 3.7 mmol/L (3.5-5.1); TOTAL PROTEIN 6.7 g/dl (6.1-8.1)
[2017-07-05] MEDS: CLOPIDOGREL 75 MG TAB PO SCH (08:35)
[2017-07-05] MEDS: ASPIRIN (EC) 81 MG TAB PO SCH (08:35)
[2017-07-05] MEDS: FINASTERIDE 5 MG TAB PO SCH (08:35)
[2017-07-05] MEDS: SERTRALINE 50 MG TAB PO SCH (08:35)
[2017-07-05] MEDS: BENAZEPRIL 10 MG TAB PO SCH (08:35)
[2017-07-05] MEDS: SPIRONOLACTONE 25 MG TAB PO SCH (08:35)
[2017-07-05] MEDS: ASCORBIC ACID 500 MG TAB PO SCH (08:35)
[2017-07-05] MEDS: FERROUS SULFATE (EC) 325 MG TAB PO SCH (08:35)
[2017-07-05] MEDS: ENOXAPARIN 40 MG/0.4 ML SYG SC SCH (08:36)
--- NOTE | 2017-07-05 11:09 | PN ---
Date/Time of Note Date/Time of Note DATE: 07/05/17 TIME: 11:05 Assessment/Plan VTE Prophylaxis VTE Prophylaxis Intervention: LMWH Lines/Catheters IV Catheter Type (from Nrs): Saline Lock [facility] line still needed: No Urinary Cath still in place: No Assessment/Plan Assessment/Plan 1. cards: worsened chf while in hospital if todays symptoms and yesterday chest xray are indfication, increase lasix (b) nsvt, increase coreg, d/c benazepril because of tenuous bp (c) s/p mvr, ?valve dysfunction as cause of chf (d) s/p CABG, ?graft dysfunction as cause of recurrent symproms 2. copd Subjective 24 Hr Interval Summary Free Text/Dictation patient looks much worse this am, feeling more sob, states that yesterday he was doing well and was walkign around the [place], now not able to lay flat Exam/Review of Systems Vital Signs Vitals Vital Signs Date Time Temp Pulse Resp B/P Pulse Ox O2 Delivery O2 Flow Rate FiO2 07/05/17 08:00 79 07/05/17 07:44 98.4 20 97/62 97 07/04/17 08:20 Nasal Cannula 2.0 Intake and Output 07/04/17 07/04/17 07/05/17 15:00 23:00 07:00 Intake Total 400 ml 620 ml Balance 400 ml 620 ml Exam moderate distress bilateral diminshed breath sounds at base, crackles above on the Left rrr Results Result Diagram: 07/05/17 0645 07/05/17 0645 Results 24 hrs Laboratory Tests Test 07/05/17 02:11 07/05/17 06:45 Vancomycin Level Trough 16.4 White Blood Count 13.0 H Red Blood Count 3.14 L Hemoglobin 8.5 L Hematocrit 26.7 L Mean Corpuscular Volume 85.0 Mean Corpuscular Hemoglobin 27.1 L Mean Corpuscular Hemoglobin Concent 31.8 L Red Cell Distribution Width 14.6 H Platelet Count 366 Mean Platelet Volume 9.2 Neutrophils % 80.8 H Lymphocytes % 10.4 L Monocytes % 6.8 Eosinophils % 0.8 Basophils % 0.3 Nucleated Red Blood Cells % 0.0 Neutrophils # 10.5 H Lymphocytes # 1.4 Monocytes # 0.9 Eosinophils # 0.1 Basophils # 0.0 Nucleated Red Blood Cells # 0.0 Sodium Level 137 Potassium Level 3.7 Chloride Level 94 L Carbon Dioxide Level 28 Anion Gap 19 H Blood Urea Nitrogen 17 Creatinine 0.90 Glucose Level 138 Calcium Level 8.2 L Magnesium Level 2.0 Total Bilirubin 0.5 Direct Bilirubin 0.00 Indirect Bilirubin 0.5 Aspartate Amino Transf (AST/SGOT) 22 Alanine Aminotransferase (ALT/SGPT) 62 Alkaline Phosphatase 119 B-Type Natriuretic Peptide 36204 H Total Protein 6.7 Albumin 3.7 Globulin 3.00 Albumin/Globulin Ratio 1.23 Medications Medications Current Medications Ascorbic Acid (Vitamin C) 500 mg DAILY PO Last administered on 07/05/17 08:35; Admin Dose 500 MG; Start 07/03/17 at 09:00 Atorvastatin Calcium (Lipitor) 80 mg DAILY@21 PO Last administered on 07/04/17 21:39; Admin Dose 80 MG; Start 07/03/17 at 21:00 Benazepril HCl (Lotensin) 10 mg DAILY PO Last administered on 07/05/17 08:35; Admin Dose 10 MG; Start 07/03/17 at 09:00 Clopidogrel Bisulfate (plaVIX) 75 mg DAILY PO Last administered on 07/05/17 08: 35; Admin Dose 75 MG; Start 07/03/17 at 09:00 Ferrous Sulfate (Ferrous Sulfate (Ec)) 325 mg DAILY PO Last administered on 07/05 08:35; Admin Dose 325 MG; Start 07/03/17 at 09:00 Finasteride (Proscar) 5 mg DAILY PO Last administered on 07/05/17 08:35; Admin Dose 5 MG; Start 07/03/17 at 09:00 Pantoprazole (Protonix Tab) 40 mg DAILY@06 PO Last administered on 07/05/17 05: 31; Admin Dose 40 MG; Start 07/03/17 at 06:00 Sertraline HCl (Zoloft) 50 mg DAILY PO Last administered on 07/05/17 08:35; Admin Dose 50 MG; Start 07/03/17 at 09:00 Spironolactone (Aldactone) 25 mg DAILY PO Last administered on 07/05/17 08:35; Admin Dose 25 MG; Start 07/03/17 at 09:00 Tamsulosin HCl (Flomax) 0.4 mg HS PO Last administered on 07/04/17 21:38; Admin Dose 0.4 MG; Start 07/03/17 at 21:00 Morphine Sulfate (morphine) 4 mg Q4H PRN IV pain Last administered on 07/05/17 03:52; Admin Dose 4 MG; Start 07/03/17 at 06:00 Acetaminophen (Tylenol Tab) 650 mg Q4H PRN PO pain/fever Last administered on 20:37; Admin Dose 650 MG; Start 07/03/17 at 06:00 Ondansetron HCl 4 mg 4 mg Q4H PRN IV nausea Last administered on 07/03/17 07:50 ; Admin Dose 4 MG; Start 07/03/17 at 06:00 Piperacillin Sod/ Tazobactam Sod (Zosyn 3.375gm/ 100 ml (Pmx)) 100 ml @ 200 mls /hr Q6 IVPB Last administered on 07/05/17 05:32; Admin Dose 200 MLS/HR; Start 07/03/17 at 13:00 Aspirin (Halfprin) 81 mg DAILY PO Last administered on 07/05/17 08:35; Admin Dose 81 MG; Start 07/04/17 at 09:00 Enoxaparin Sodium (Lovenox) 40 mg DAILY SC Last administered on 07/05/17 08:36 ; Admin Dose 40 MG; Start 07/04/17 at 09:00 Carvedilol (Coreg) 3.125 mg BID PO Last administered on 07/05/17 08:34; Admin Dose 3.125 MG; Start 07/03/17 at 21:00 Acetaminophen/ Hydrocodone Bitart ([place] (5/325)) 1 tab Q4H PRN PO PAIN Last administered on 07/05/17 00:12; Admin Dose 1 TAB; Start 07/03/17 at 21:00 Digoxin 0.125 mg 0.125 mg QHS PO Last administered on 07/04/17 21:39; Admin Dose 0.125 MG; Start 07/04/17 at 21:00 Vancomycin HCl/ Sodium Chloride (Vancocin/NS) 150 ml @ 75 mls/hr Q12H IVPB ; Start 07/05/17 at 16:00 QUIRINO GONCALVES MD Jul 05, 2017 11:08
[2017-07-05] MEDS ORDERED: POTASSIUM CHLORIDE (SR) 20 MEQ TAB PO STA (12:51)
--- NOTE | 2017-07-05 12:55 | PN ---
Date/Time of Note Date/Time of Note DATE: 07/05/17 TIME: 12:53 Assessment/Plan VTE Prophylaxis VTE Prophylaxis Intervention: other Lines/Catheters IV [facility] Type (from [facility] Saline Lock Urinary Cath still in place: No Assessment/Plan Chief Complaint/Hosp Course A/P: 1. CHF: due to severe systolic dysfunction. 2. CAD; 3/ S/P recent MVR 4. S/P CABG 5. Anemia 6. ? pneumonia 7. HTN 8. / Dyslipidemia. 9. severe cardiomyopathy. 10./ NSVT REC: cont ASA coreg cont diuresis for now. correct lytes prn dig. aldactonte CLAUDY ONCE able to tolerate it. Problems: Subjective 24 Hr Interval Summary Free Text/Dictation d/w staff and rhythm was reviewed. pt remains in NSR with short runs of NSVT no chest pain or pressure now PT has more sob. d/w his pt with poor appetite/ OBJECTIVE: General: no acute distress HEENT: NC/AT. pupils are equal. round. NECK: NO JVD. no stridor. CV: RRR. systolic murmur; no gallop or rubs. CHEST; S/P recent sternotomy. PULM: no wheezing. + b/l basilar rhonchi. GI: SOFT, NT, ND, no rebound or guarding Extremity: trace B/L LE edema. no clubbing. neuro: awake and alert, OX3. Psych: calm and pleasant rectal: deferred : normal ECHO: 1. Mild concentric left ventricular hypertrophy. Moderate enlargement of left ventricle cavity. Severe left ventricular systolic dysfunction. Ejection fraction is visually estimated at 20 %. Abnormal Diastolic Function. 2. Normal right ventricular size. Normal right ventricular systolic function. 3. The left atrium is normal in size. 4. The right atrium is normal in size. 5. Mitral Valve Bio Prosthesis. No mitral valve regurgitation is seen. 6. No significant aortic stenosis or insufficiency. 7. Estimated peak PA systolic pressure 39 mmHg. There is mild tricuspid regurgitation. 8. There is mild pulmonic regurgitation. 9. Trivial pericardial effusion. Exam/Review of Systems Vital Signs Vitals Vital Signs Date Time Temp Pulse Resp B/P Pulse Ox O2 Delivery O2 Flow Rate FiO2 07/05/17 12:00 78 07/05/17 11:40 98.6 19 101/63 100 07/05/17 08:00 Nasal Cannula 2.0 Intake and Output 07/04/17 07/04/17 07/05/17 15:00 23:00 07:00 Intake Total 400 ml 620 ml Balance 400 ml 620 ml Results Result Diagram: 07/05/17 0645 07/05/17 0645 Results 24 hrs Laboratory Tests Test 07/05/17 02:11 07/05/17 06:45 Vancomycin Level Trough 16.4 White Blood Count 13.0 H Red Blood Count 3.14 L Hemoglobin 8.5 L Hematocrit 26.7 L Mean Corpuscular Volume 85.0 Mean Corpuscular Hemoglobin 27.1 L Mean Corpuscular Hemoglobin Concent 31.8 L Red Cell Distribution Width 14.6 H Platelet Count 366 Mean Platelet Volume 9.2 Neutrophils % 80.8 H Lymphocytes % 10.4 L Monocytes % 6.8 Eosinophils % 0.8 Basophils % 0.3 Nucleated Red Blood Cells % 0.0 Neutrophils # 10.5 H Lymphocytes # 1.4 Monocytes # 0.9 Eosinophils # 0.1 Basophils # 0.0 Nucleated Red Blood Cells # 0.0 Sodium Level 137 Potassium Level 3.7 Chloride Level 94 L Carbon Dioxide Level 28 Anion Gap 19 H Blood Urea Nitrogen 17 Creatinine 0.90 Glucose Level 138 Calcium Level 8.2 L Magnesium Level 2.0 Total Bilirubin 0.5 Direct Bilirubin 0.00 Indirect Bilirubin 0.5 Aspartate Amino Transf (AST/SGOT) 22 Alanine Aminotransferase (ALT/SGPT) 62 Alkaline Phosphatase 119 B-Type Natriuretic Peptide 03932 H Total Protein 6.7 Albumin 3.7 Globulin 3.00 Albumin/Globulin Ratio 1.23 Medications Medications Current Medications Ascorbic Acid (Vitamin C) 500 mg DAILY PO Last administered on 07/05/17 08:35; Admin Dose 500 MG; Start 07/03/17 at 09:00 Atorvastatin Calcium (Lipitor) 80 mg DAILY@21 PO Last administered on 07/04/17 21:39; Admin Dose 80 MG; Start 07/03/17 at 21:00 Clopidogrel Bisulfate (plaVIX) 75 mg DAILY PO Last administered on 07/05/17 08: 35; Admin Dose 75 MG; Start 07/03/17 at 09:00 Ferrous Sulfate (Ferrous Sulfate (Ec)) 325 mg DAILY PO Last administered on 07/05 08:35; Admin Dose 325 MG; Start 07/03/17 at 09:00 Finasteride (Proscar) 5 mg DAILY PO Last administered on 07/05/17 08:35; Admin Dose 5 MG; Start 07/03/17 at 09:00 Pantoprazole (Protonix Tab) 40 mg DAILY@06 PO Last administered on 07/05/17 05: 31; Admin Dose 40 MG; Start 07/03/17 at 06:00 Sertraline HCl (Zoloft) 50 mg DAILY PO Last administered on 07/05/17 08:35; Admin Dose 50 MG; Start 07/03/17 at 09:00 Spironolactone (Aldactone) 25 mg DAILY PO Last administered on 07/05/17 08:35; Admin Dose 25 MG; Start 07/03/17 at 09:00 Tamsulosin HCl (Flomax) 0.4 mg HS PO Last administered on 07/04/17 21:38; Admin Dose 0.4 MG; Start 07/03/17 at 21:00 Morphine Sulfate (morphine) 4 mg Q4H PRN IV pain Last administered on 07/05/17 03:52; Admin Dose 4 MG; Start 07/03/17 at 06:00 Acetaminophen (Tylenol Tab) 650 mg Q4H PRN PO pain/fever Last administered on 20:37; Admin Dose 650 MG; Start 07/03/17 at 06:00 Ondansetron HCl 4 mg 4 mg Q4H PRN IV nausea Last administered on 07/03/17 07:50 ; Admin Dose 4 MG; Start 07/03/17 at 06:00 Piperacillin Sod/ Tazobactam Sod (Zosyn 3.375gm/ 100 ml (Pmx)) 100 ml @ 200 mls /hr Q6 IVPB Last administered on 07/05/17 12:12; Admin Dose 200 MLS/HR; Start 07/03/17 at 13:00 Aspirin (Halfprin) 81 mg DAILY PO Last administered on 07/05/17 08:35; Admin Dose 81 MG; Start 07/04/17 at 09:00 Enoxaparin Sodium (Lovenox) 40 mg DAILY SC Last administered on 07/05/17 08:36 ; Admin Dose 40 MG; Start 07/04/17 at 09:00 Acetaminophen/ Hydrocodone Bitart ([place] (5/325)) 1 tab Q4H PRN PO PAIN Last administered on 07/05/17 00:12; Admin Dose 1 TAB; Start 07/03/17 at 21:00 Digoxin 0.125 mg 0.125 mg QHS PO Last administered on 07/04/17 21:39; Admin Dose 0.125 MG; Start 07/04/17 at 21:00 Vancomycin HCl/ Sodium Chloride (Vancocin/NS) 150 ml @ 75 mls/hr Q12H IVPB ; Start 07/05/17 at 16:00 Carvedilol (Coreg) 6.25 mg BID PO ; Start 07/05/17 at 21:00 RALF JIMENEZ MD Jul 05, 2017 12:55
[2017-07-05] MEDS: VANCOMYCIN 750 MG in SOD CHLORIDE 0.9% 150 ML IVPB SCH (16:23)
[2017-07-05] MEDS: TAMSULOSIN (SR) 0.4 MG CAP PO SCH (21:10)
[2017-07-05] MEDS: DIGOXIN 0.125 MG TAB PO SCH (21:10)
[2017-07-05] MEDS: ATORVASTATIN 80 MG TAB PO SCH (21:10)
[2017-07-06] VITALS (10 sets, daily range): BP systolic 98–111; BP diastolic 56–67; PULSE 74–81; RESP 20
[2017-07-06] MEDS: PIPER-TAZO 3.375 GM IV (PMX) 100 ML IVPB SCH ×5 (00:12→23:31)
[2017-07-06] MEDS: HYDROCODONE/APAP (5/325) TAB PO PRN (03:07)
[2017-07-06] MEDS: VANCOMYCIN 750 MG in SOD CHLORIDE 0.9% 150 ML IVPB SCH ×2 (03:26→15:28)
[2017-07-06] MEDS: PANTOPRAZOLE (EC) 40 MG TAB PO SCH (05:32)
[2017-07-06] MEDS: FUROSEMIDE 40 MG INJ IV SCH (05:34)
[2017-07-06 06:54] LABS: BASOPHILS % 0.2 % (0.0-2.0); EOSINOPHILS % 0.2 % (0.0-7.0); HEMATOCRIT 27.3 % (42.0-52.0); HEMOGLOBIN 8.7 g/dl (14.0-18.0); LYMPHOCYTES # 1.5 10^3/ul (0.8-2.9); LYMPHOCYTES % 11.4 % (15.0-51.0); MEAN CORPUSCULAR HEMOGLOBIN 27.1 pg (29.0-33.0); MEAN CORPUSCULAR HGB CONC 31.9 g/dl (32.0-37.0); MEAN PLATELET VOLUME 9.2 fl (7.4-10.4); MONOCYTE # 1.1 10^3/ul (0.3-0.9); MONOCYTES % 8.3 % (0.0-11.0); NEUTROPHIL # 10.4 10^3/ul (1.6-7.5); NEUTROPHILS % 78.9 % (39.0-77.0); PLATELET COUNT 413 10^3/UL (140-415); RED BLOOD COUNT 3.21 10^6/ul (4.70-6.10); RED CELL DISTRIBUTION WIDTH 14.6 % (11.5-14.5); WHITE BLOOD COUNT 13.2 10^3/ul (4.8-10.8)
[2017-07-06 07:16] LABS: ALBUMIN 3.6 g/dl (3.3-4.9); ALBUMIN/GLOBULIN RATIO 1.33; BILIRUBIN,INDIRECT 0.6 mg/dl (0-1.1); BILIRUBIN,TOTAL 0.6 mg/dl (0.2-1.3); CALCIUM 8.3 mg/dl (8.4-10.2); CREATININE 0.88 mg/dl (0.61-1.24); MAGNESIUM 2.1 mg/dl (1.7-2.5); POTASSIUM 3.9 mmol/L (3.5-5.1); TOTAL PROTEIN 6.3 g/dl (6.1-8.1)
[2017-07-06 07:29] LABS: TROPONIN-I 0.838 ng/ml (0.00-0.12)
[2017-07-06] MEDS: CLOPIDOGREL 75 MG TAB PO SCH (08:22)
[2017-07-06] MEDS: FERROUS SULFATE (EC) 325 MG TAB PO SCH (08:22)
[2017-07-06] MEDS: ASCORBIC ACID 500 MG TAB PO SCH (08:22)
[2017-07-06] MEDS: SERTRALINE 50 MG TAB PO SCH (08:22)
[2017-07-06] MEDS: ASPIRIN (EC) 81 MG TAB PO SCH (08:23)
[2017-07-06] MEDS: SPIRONOLACTONE 25 MG TAB PO SCH (08:23)
[2017-07-06] MEDS: FINASTERIDE 5 MG TAB PO SCH (08:27)
[2017-07-06] MEDS: ENOXAPARIN 40 MG/0.4 ML SYG SC SCH (08:34)
--- NOTE | 2017-07-06 10:11 | PN ---
Date/Time of Note Date/Time of Note DATE: 07/06/17 TIME: 09:51 Assessment/Plan VTE Prophylaxis VTE Prophylaxis Intervention: LMWH Lines/Catheters IV [facility] Saline Lock Urinary Cath still in place: No Assessment/Plan Assessment/Plan 66-year-old male with: 1. Respiratory distress, secondary to congestive heart failure exacerbation, patient is known to have cardiomyopathy with ejection fraction of 20%, he status post coronary artery bypass surgery and has been noncompliant with his medication since he did not even fill his prescriptions on admission here. Episode of NSVT this weekend, none overnight. On Coreg and digoxin now. Continue current diuretics and follow up on CXR today. On supp O2, 2L NC with sats 100% Continue beta-blockers and CLAUDY inhibitors on hold for now due to low BP Further recommendations per cardiology, Dr. Dow. 2. Mild elevation of cardiac enzymes, likely just trending down postoperatively , Back on cardiac medications. Follow-up Cardio recs today. Monitor on telemetry 3. Leukocytosis: Unclear if stress demargination postoperatively, given the yellow productive sputum even if no infiltrate on chest x-ray at admission, patient may have bronchitis, On Zosyn and Vanco currently. WBC trending down. All cx negative and except urine, will repeat Urine cx Patient is a former smoker but only recently quit likely with COPD, continue nebulizer treatment. 4. COPD: continue Nebs and supplemental O2, 2L NC 5. Hyperlipidemia: Continue statin therapy 6. Benign prostatic hypertrophy: Continue Flomax 7. GERD: Continue PPIs 8. Major depressive disorder: Continue Zoloft Prophylaxis: Proton pump inhibitors for GI prophylaxis, Lovenox for DVT prophylaxis Disposition: Diuresis, trend enzymes, follow-up cardio recs. Subjective 24 Hr Interval Summary Free Text/Dictation Patient still having MILLS with minimal ambulation to the restroom On Lasix and Aldactone for diuresis WBC down No NSVT episodes overnight Exam/Review of Systems Vital Signs Vitals Vital Signs Date Time Temp Pulse Resp B/P Pulse Ox O2 Delivery O2 Flow Rate FiO2 07/06/17 08:15 80 07/06/17 07:43 98.7 20 104/67 100 07/05/17 20:04 Nasal Cannula 2.0 Intake and Output 07/05/17 07/05/17 07/06/17 15:00 23:00 07:00 Intake Total 100 ml 250 ml 870 ml Balance 100 ml 250 ml 870 ml Exam Constitutional: alert, distress (MILLS with minimal excertion ), oriented, well developed Cardiovascular: nl pulses, regular rate and rhythm Gastrointestinal: non-tender, soft Musculoskeletal: nl extremities to inspection Extremities: normal pulses, other (no edema, clubbing or cyanosis ) 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: 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 intact, nl mental status, nl speech, other ( generalized weakness ) Results Result Diagram: 07/06/17 0617 07/06/17 0617 Results 24 hrs Laboratory Tests Test 07/06/17 06:17 White Blood Count 13.2 H Red Blood Count 3.21 L Hemoglobin 8.7 L Hematocrit 27.3 L Mean Corpuscular Volume 85.0 Mean Corpuscular Hemoglobin 27.1 L Mean Corpuscular Hemoglobin Concent 31.9 L Red Cell Distribution Width 14.6 H Platelet Count 413 Mean Platelet Volume 9.2 Neutrophils % 78.9 H Lymphocytes % 11.4 L Monocytes % 8.3 Eosinophils % 0.2 Basophils % 0.2 Nucleated Red Blood Cells % 0.0 Neutrophils # 10.4 H Lymphocytes # 1.5 Monocytes # 1.1 H Eosinophils # 0.0 Basophils # 0.0 Nucleated Red Blood Cells # 0.0 Sodium Level 138 Potassium Level 3.9 Chloride Level 95 L Carbon Dioxide Level 28 Anion Gap 19 H Blood Urea Nitrogen 19 Creatinine 0.88 Glucose Level 142 Calcium Level 8.3 L Magnesium Level 2.1 Total Bilirubin 0.6 Direct Bilirubin 0.00 Indirect Bilirubin 0.6 Aspartate Amino Transf (AST/SGOT) 22 Alanine Aminotransferase (ALT/SGPT) 54 Alkaline Phosphatase 116 Troponin I 0.838 *H B-Type Natriuretic Peptide 37293 H Total Protein 6.3 Albumin 3.6 Globulin 2.70 Albumin/Globulin Ratio 1.33 Medications Medications Current Medications Ascorbic Acid (Vitamin C) 500 mg DAILY PO Last administered on 07/06/17 08:22; Admin Dose 500 MG; Start 07/03/17 at 09:00 Atorvastatin Calcium (Lipitor) 80 mg DAILY@21 PO Last administered on 07/05/17 21:10; Admin Dose 80 MG; Start 07/03/17 at 21:00 Clopidogrel Bisulfate (plaVIX) 75 mg DAILY PO Last administered on 07/06/17 08: 22; Admin Dose 75 MG; Start 07/03/17 at 09:00 Ferrous Sulfate (Ferrous Sulfate (Ec)) 325 mg DAILY PO Last administered on 07/06 08:22; Admin Dose 325 MG; Start 07/03/17 at 09:00 Finasteride (Proscar) 5 mg DAILY PO Last administered on 07/06/17 08:27; Admin Dose 5 MG; Start 07/03/17 at 09:00 Pantoprazole (Protonix Tab) 40 mg DAILY@06 PO Last administered on 07/06/17 05: 32; Admin Dose 40 MG; Start 07/03/17 at 06:00 Sertraline HCl (Zoloft) 50 mg DAILY PO Last administered on 07/06/17 08:22; Admin Dose 50 MG; Start 07/03/17 at 09:00 Spironolactone (Aldactone) 25 mg DAILY PO Last administered on 07/06/17 08:23; Admin Dose 25 MG; Start 07/03/17 at 09:00 Tamsulosin HCl (Flomax) 0.4 mg HS PO Last administered on 07/05/17 21:10; Admin Dose 0.4 MG; Start 07/03/17 at 21:00 Morphine Sulfate (morphine) 4 mg Q4H PRN IV pain Last administered on 07/05/17 03:52; Admin Dose 4 MG; Start 07/03/17 at 06:00 Acetaminophen (Tylenol Tab) 650 mg Q4H PRN PO pain/fever Last administered on 20:37; Admin Dose 650 MG; Start 07/03/17 at 06:00 Ondansetron HCl 4 mg 4 mg Q4H PRN IV nausea Last administered on 07/03/17 07:50 ; Admin Dose 4 MG; Start 07/03/17 at 06:00 Piperacillin Sod/ Tazobactam Sod (Zosyn 3.375gm/ 100 ml (Pmx)) 100 ml @ 200 mls /hr Q6 IVPB Last administered on 07/06/17 05:33; Admin Dose 200 MLS/HR; Start 07/03/17 at 13:00 Aspirin (Halfprin) 81 mg DAILY PO Last administered on 07/06/17 08:23; Admin Dose 81 MG; Start 07/04/17 at 09:00 Enoxaparin Sodium (Lovenox) 40 mg DAILY SC Last administered on 07/06/17 08:34 ; Admin Dose 40 MG; Start 07/04/17 at 09:00 Acetaminophen/ Hydrocodone Bitart ([place] (5/325)) 1 tab Q4H PRN PO PAIN Last administered on 07/06/17 03:07; Admin Dose 1 TAB; Start 07/03/17 at 21:00 Digoxin 0.125 mg 0.125 mg QHS PO Last administered on 07/05/17 21:10; Admin Dose 0.125 MG; Start 07/04/17 at 21:00 Vancomycin HCl/ Sodium Chloride (Vancocin/NS) 150 ml @ 75 mls/hr Q12H IVPB Last administered on 07/06/17 03:26; Admin Dose 75 MLS/HR; Start 07/05/17 at 16: 00 Carvedilol (Coreg) 6.25 mg BID PO Last administered on 07/06/17 08:24; Admin Dose 6.25 MG; Start 07/05/17 at 21:00 Procedures Procedures Echocardiogram Report Patient Name: HARJEET CALZADA Gender: Male Date: 1950 Study Date: 03-Jul-2017 Cabinetmaker Apprentice: Pilar Herrera RDCS Location: [facility] Ref. Physician: HECTOR BERNABE Quality: Adequate Procedures: Transthoracic echocardiogram with complete 2D, M-Mode, and doppler examination. Indications: Congestive Heart Failure. 2D/M Mode Doppler Measurement Value Normal Ranges Measurement Value Normal Ranges LVIDd 2D 6.8 3.5 - 5.6 cm MARY Vmax 3.5 cm2 LVIDs 2D 6.3 2.1 - 4.1 cm MARY VTI 3.5 cm2 LVPWd 2D 1.2 0.6 - 1.1 cm AV Peak Edgar 1.3 m/sec IVSd 2D 1.2 0.6 - 1.1 cm AV Peak PG 6.7 mmHg AoR Diam 2D 3.5 2.0 - 3.7 cm LVOT Mean Edgar 0.7 m/sec EDV 2D 238.9 cm3 LVOT Mean PG 2.3 mmHg ESV 2D 251.8 cm3 LVOT Peak Edgar 1.0 m/sec LA Dimen 2D 4.9 2.3 - 4.0 cm LVOT Peak PG 4.3 mmHg LVOT Diam 2.4 cm LVOT VTI 19.0 cm MV PHT 106.3 msec MV Peak Edgar 2.1 m/sec MV Peak PG 18.3 mmHg MV Mean Edgar 1.1 m/sec MV Mean PG 6.3 mmHg MV PHT 106.3 msec MV VTI 49.6 cm MVA PHT 2.1 cm2 MVA VTI 1.7 cm TR Peak Edgar 2.8 m/sec TR Peak PG 31.1 mmHg RVSP 39.0 mmHg Findings Left Ventricle: Mild concentric left ventricular hypertrophy. Moderate enlargement of left ventricle cavity. Severe left ventricular systolic dysfunction. Ejection fraction is visually estimated at 20 %. Abnormal Diastolic Function. Right Ventricle: Normal right ventricular size. Normal right ventricular systolic function. Left Atrium: The left atrium is normal in size. Right Atrium: The right atrium is normal in size. Mitral Valve: No mitral valve regurgitation is seen. Mitral Valve Bio Prosthesis. MeanPG 6.30 mmHg. Aortic Valve: Normal appearance of the aortic valve. No significant aortic stenosis or insufficiency. Tricuspid Valve: Normal appearance of the tricuspid valve. Estimated peak PA systolic pressure 39 mmHg. There is mild tricuspid regurgitation. Pulmonic Valve: Normal pulmonic valve appearance. There is mild pulmonic regurgitation. Pericardium: Trivial pericardial effusion. Aorta: Normal aortic root. IVC: Dilated IVC with respiratory collapse consistent with elevated right atrial pressure. Conclusions 1. Mild concentric left ventricular hypertrophy. Moderate enlargement of left ventricle cavity. Severe left ventricular systolic dysfunction. Ejection fraction is visually estimated at 20 %. Abnormal Diastolic Function. 2. Normal right ventricular size. Normal right ventricular systolic function. 3. The left atrium is normal in size. 4. The right atrium is normal in size. 5. Mitral Valve Bio Prosthesis. No mitral valve regurgitation is seen. 6. No significant aortic stenosis or insufficiency. 7. Estimated peak PA systolic pressure 39 mmHg. There is mild tricuspid regurgitation. 8. There is mild pulmonic regurgitation. 9. Trivial pericardial effusion. Electronically Signed By: Barney Dow 03-Jul-2017 14:10:36 -0700 DEE BERNABE Jul 06, 2017 10:02
[2017-07-06] MEDS ORDERED: POTASSIUM CHLORIDE (SR) 20 MEQ TAB PO STA (10:13)
--- NOTE | 2017-07-06 13:16 | CONS ---
Date/Time of Note Date/Time of Note DATE: 07/06/17 TIME: 13:14 Assessment/Plan Assessment/Plan Additional Assessment/Plan Acute decompensated systolic congestive heart failure Mitral regurgitation status post recent replacement with bioprosthetic valve CAD status post recent coronary artery bypass grafting with history of PCI Ischemic cardiomyopathy with ejection fraction less than 20% SIRS Tobacco use with likely history of COPD Hypertension Diabetes Peripheral arterial disease -Patient still with symptoms of shortness of breath. Denies chest pain or dizziness. Would switch to Bumex IV drip. Maintain potassium above 4.0 and magnesium above 2.0. Continue beta-blockers heart rate and blood pressure permits and antiplatelet therapy. Consultation Date/Type/Reason Admit Date/Time Jul 03, 2017 at 14:57 Initial Consult Date Type of Consultation: cv 24 HR Interval Summary Free Text/Dictation Still with intermittent shortness of breath, at times with walking at times with no activity. Denies chest pain, dizziness or palpitations. Exam/Review of Systems Vital Signs Vitals Vital Signs Date Time Temp Pulse Resp B/P Pulse Ox O2 Delivery O2 Flow Rate FiO2 07/06/17 12:11 98.0 71 20 98/66 100 07/06/17 08:15 Nasal Cannula 3.0 Intake and Output 07/05/17 07/05/17 07/06/17 15:00 23:00 07:00 Intake Total 100 ml 250 ml 870 ml Balance 100 ml 250 ml 870 ml Exam Sitting in chair, no apparent distress Constitutional: alert, oriented Head: normocephalic Neck: supple Respiratory: other (Coarse breath sounds bilaterally with scattered mild crackles, no wheezing) Cardiovascular: other (S1-S2 heard), regular rate and rhythm, systolic murmur Gastrointestinal: bowel sounds, non-tender, soft Extremities: edema (Trace) Results Result Diagram: 07/06/17 0617 07/06/17 0617 Results 24 hrs Laboratory Tests Test 07/06/17 06:17 White Blood Count 13.2 H Red Blood Count 3.21 L Hemoglobin 8.7 L Hematocrit 27.3 L Mean Corpuscular Volume 85.0 Mean Corpuscular Hemoglobin 27.1 L Mean Corpuscular Hemoglobin Concent 31.9 L Red Cell Distribution Width 14.6 H Platelet Count 413 Mean Platelet Volume 9.2 Neutrophils % 78.9 H Lymphocytes % 11.4 L Monocytes % 8.3 Eosinophils % 0.2 Basophils % 0.2 Nucleated Red Blood Cells % 0.0 Neutrophils # 10.4 H Lymphocytes # 1.5 Monocytes # 1.1 H Eosinophils # 0.0 Basophils # 0.0 Nucleated Red Blood Cells # 0.0 Sodium Level 138 Potassium Level 3.9 Chloride Level 95 L Carbon Dioxide Level 28 Anion Gap 19 H Blood Urea Nitrogen 19 Creatinine 0.88 Glucose Level 142 Calcium Level 8.3 L Magnesium Level 2.1 Total Bilirubin 0.6 Direct Bilirubin 0.00 Indirect Bilirubin 0.6 Aspartate Amino Transf (AST/SGOT) 22 Alanine Aminotransferase (ALT/SGPT) 54 Alkaline Phosphatase 116 Troponin I 0.838 *H B-Type Natriuretic Peptide 73147 H Total Protein 6.3 Albumin 3.6 Globulin 2.70 Albumin/Globulin Ratio 1.33 Medications Medications Current Medications Ascorbic Acid (Vitamin C) 500 mg DAILY PO Last administered on 07/06/17 08:22; Admin Dose 500 MG; Start 07/03/17 at 09:00 Atorvastatin Calcium (Lipitor) 80 mg DAILY@21 PO Last administered on 07/05/17 21:10; Admin Dose 80 MG; Start 07/03/17 at 21:00 Clopidogrel Bisulfate (plaVIX) 75 mg DAILY PO Last administered on 07/06/17 08: 22; Admin Dose 75 MG; Start 07/03/17 at 09:00 Ferrous Sulfate (Ferrous Sulfate (Ec)) 325 mg DAILY PO Last administered on 07/06 08:22; Admin Dose 325 MG; Start 07/03/17 at 09:00 Finasteride (Proscar) 5 mg DAILY PO Last administered on 07/06/17 08:27; Admin Dose 5 MG; Start 07/03/17 at 09:00 Pantoprazole (Protonix Tab) 40 mg DAILY@06 PO Last administered on 07/06/17 05: 32; Admin Dose 40 MG; Start 07/03/17 at 06:00 Sertraline HCl (Zoloft) 50 mg DAILY PO Last administered on 07/06/17 08:22; Admin Dose 50 MG; Start 07/03/17 at 09:00 Spironolactone (Aldactone) 25 mg DAILY PO Last administered on 07/06/17 08:23; Admin Dose 25 MG; Start 07/03/17 at 09:00 Tamsulosin HCl (Flomax) 0.4 mg HS PO Last administered on 07/05/17 21:10; Admin Dose 0.4 MG; Start 07/03/17 at 21:00 Morphine Sulfate (morphine) 4 mg Q4H PRN IV pain Last administered on 07/05/17 03:52; Admin Dose 4 MG; Start 07/03/17 at 06:00 Acetaminophen (Tylenol Tab) 650 mg Q4H PRN PO pain/fever Last administered on 20:37; Admin Dose 650 MG; Start 07/03/17 at 06:00 Ondansetron HCl 4 mg 4 mg Q4H PRN IV nausea Last administered on 07/03/17 07:50 ; Admin Dose 4 MG; Start 07/03/17 at 06:00 Piperacillin Sod/ Tazobactam Sod (Zosyn 3.375gm/ 100 ml (Pmx)) 100 ml @ 200 mls /hr Q6 IVPB Last administered on 07/06/17 11:49; Admin Dose 200 MLS/HR; Start 07/03/17 at 13:00 Aspirin (Halfprin) 81 mg DAILY PO Last administered on 07/06/17 08:23; Admin Dose 81 MG; Start 07/04/17 at 09:00 Enoxaparin Sodium (Lovenox) 40 mg DAILY SC Last administered on 07/06/17 08:34 ; Admin Dose 40 MG; Start 07/04/17 at 09:00 Acetaminophen/ Hydrocodone Bitart ([place] (5/325)) 1 tab Q4H PRN PO PAIN Last administered on 07/06/17 03:07; Admin Dose 1 TAB; Start 07/03/17 at 21:00 Digoxin 0.125 mg 0.125 mg QHS PO Last administered on 07/05/17 21:10; Admin Dose 0.125 MG; Start 07/04/17 at 21:00 Vancomycin HCl/ Sodium Chloride (Vancocin/NS) 150 ml @ 75 mls/hr Q12H IVPB Last administered on 07/06/17 03:26; Admin Dose 75 MLS/HR; Start 07/05/17 at 16: 00 Carvedilol (Coreg) 6.25 mg BID PO Last administered on 07/06/17 08:24; Admin Dose 6.25 MG; Start 07/05/17 at 21:00 Bumetanide 1 mg 1 mg ONCE ONCE IV ; Start 07/06/17 at 13:30; Stop 07/06/17 at 13: 31; Status UNV Bumetanide/ Dextrose (Bumex/D5W) 30 ml @ 16.667 mls/ hr Q1H48M ONCE IV ; Start 07/06/17 at 13:30; Stop 07/06/17 at 15:17; Status UNV Barney Dow DO Jul 06, 2017 13:16
[2017-07-06] MEDS ORDERED: BUMETANIDE 1 MG INJ IV ONE (13:30)
[2017-07-06] MEDS ORDERED: BUMETANIDE 3 MG in DEXTROSE 5% 18 ML IV ONE (14:30)
[2017-07-06 16:20] LABS: ADD UMIC YES; UR ASCORBIC ACID NEGATIVE (NEGATIVE); UR BILIRUBIN (Dip) NEGATIVE (NEGATIVE); UR BLOOD (Dip) NEGATIVE (NEGATIVE); UR CLARITY CLEAR (CLEAR); UR COLOR YELLOW (YELLOW); UR GLUCOSE (Dip) NEGATIVE (NEGATIVE); UR KETONES (Dip) NEGATIVE (NEGATIVE); UR LEUKOCYTE ESTERASE (Dip) TRACE Leu/ul (NEGATIVE); UR NITRITE (Dip) NEGATIVE (NEGATIVE); UR RBC 1 /HPF (0-5); UR SPECIFIC GRAVITY (Dip) 1.012 (1.003-1.030); UR TOTAL PROTEIN (Dip) NEGATIVE (NEGATIVE); UR UROBILINOGEN (Dip) NEGATIVE (NEGATIVE)
[2017-07-06] MEDS: ATORVASTATIN 80 MG TAB PO SCH (21:03)
[2017-07-06] MEDS: SENNA TAB PO SCH (21:03)
[2017-07-06] MEDS: DOCUSATE SODIUM 100 MG CAP PO SCH (21:03)
[2017-07-06] MEDS: TAMSULOSIN (SR) 0.4 MG CAP PO SCH (21:03)
[2017-07-06] MEDS: DIGOXIN 0.125 MG TAB PO SCH (21:04)
[2017-07-06] MEDS: morphine 4 MG/ML VIAL IV PRN (23:36)
[2017-07-07] VITALS (13 sets, daily range): BP systolic 100–112; BP diastolic 58–68; PULSE 72–85; RESP 17–21
[2017-07-07 04:28] LABS: BASOPHILS % 0.3 % (0.0-2.0); EOSINOPHILS # 0.1 10^3/ul (0.0-0.5); EOSINOPHILS % 0.5 % (0.0-7.0); HEMATOCRIT 26.3 % (42.0-52.0); HEMOGLOBIN 8.2 g/dl (14.0-18.0); LYMPHOCYTES # 1.6 10^3/ul (0.8-2.9); LYMPHOCYTES % 13.8 % (15.0-51.0); MEAN CORPUSCULAR HEMOGLOBIN 26.2 pg (29.0-33.0); MEAN CORPUSCULAR HGB CONC 31.2 g/dl (32.0-37.0); MEAN PLATELET VOLUME 9.2 fl (7.4-10.4); MONOCYTES % 8.9 % (0.0-11.0); NEUTROPHIL # 8.6 10^3/ul (1.6-7.5); NEUTROPHILS % 75.9 % (39.0-77.0); PLATELET COUNT 401 10^3/UL (140-415); RED BLOOD COUNT 3.13 10^6/ul (4.70-6.10); RED CELL DISTRIBUTION WIDTH 15.1 % (11.5-14.5); WHITE BLOOD COUNT 11.3 10^3/ul (4.8-10.8)
[2017-07-07 04:48] LABS: MAGNESIUM 2.2 mg/dl (1.7-2.5); PHOSPHORUS 3.1 mg/dl (2.5-4.9)
[2017-07-07 04:53] LABS: CALCIUM 8.2 mg/dl (8.4-10.2); CREATININE 0.93 mg/dl (0.61-1.24); POTASSIUM 3.3 mmol/L (3.5-5.1)
[2017-07-07] MEDS: VANCOMYCIN 750 MG in SOD CHLORIDE 0.9% 150 ML IVPB SCH ×2 (05:49→15:16)
[2017-07-07] MEDS: BUMETANIDE 1 MG INJ IV SCH ×2 (05:49→17:19)
[2017-07-07] MEDS: PIPER-TAZO 3.375 GM IV (PMX) 100 ML IVPB SCH ×3 (05:50→17:20)
[2017-07-07] MEDS: PANTOPRAZOLE (EC) 40 MG TAB PO SCH (05:50)
[2017-07-07] MEDS: FINASTERIDE 5 MG TAB PO SCH (08:17)
[2017-07-07] MEDS: CLOPIDOGREL 75 MG TAB PO SCH (08:17)
[2017-07-07] MEDS: SERTRALINE 50 MG TAB PO SCH (08:17)
[2017-07-07] MEDS: ASCORBIC ACID 500 MG TAB PO SCH (08:17)
[2017-07-07] MEDS: SPIRONOLACTONE 25 MG TAB PO SCH (08:17)
[2017-07-07] MEDS: ASPIRIN (EC) 81 MG TAB PO SCH (08:17)
[2017-07-07] MEDS: SENNA TAB PO SCH ×2 (08:17→21:00)
[2017-07-07] MEDS: DOCUSATE SODIUM 100 MG CAP PO SCH ×2 (08:17→21:00)
[2017-07-07] MEDS: FERROUS SULFATE (EC) 325 MG TAB PO SCH (08:18)
[2017-07-07] MEDS: ENOXAPARIN 40 MG/0.4 ML SYG SC SCH (08:22)
--- NOTE | 2017-07-07 09:12 | RADRPT ---
PROCEDURE: Chest 1 views. CLINICAL INDICATION: Shortness of breath. TECHNIQUE: AP views of the chest was obtained. COMPARISON: July 04, 2017 FINDINGS: The heart is large. Mediasternotomy wires overlie the heart. Atrial appendage clip is observed. Ce ntral pulmonary vascular congestion and interstitial prominence in both lungs is stable. Elevated r ight hemidiaphragm is observed. Atelectasis is noted in the bilateral lower lobes. Osseous structu res are intact. IMPRESSION: Cardiomegaly . Stable central pulmonary vascular congestion and mild interstitial prominence in both lungs. Elevated right hemidiaphragm. Atelectasis in the bilateral lower lobes. RPTAT: AA .Osmar Gomez MD, Date Time Electronically viewed and signed by .Osmar Gomez MD, on 07/07/2017 09:11 .P/
[2017-07-07] MEDS: POTASSIUM CHLORIDE (SR) 20 MEQ TAB PO SCH ×2 (11:30→12:46)
--- NOTE | 2017-07-07 11:55 | PN ---
Date/Time of Note Date/Time of Note DATE: 07/07/17 TIME: 11:48 Assessment/Plan VTE Prophylaxis VTE Prophylaxis Intervention: LMWH Lines/Catheters IV Catheter Type (from Nrs): Saline Lock Urinary Cath still in place: No Assessment/Plan Assessment/Plan 66-year-old male with: 1. Respiratory distress, secondary to congestive heart failure exacerbation, patient is known to have cardiomyopathy with ejection fraction of 20%, he status post coronary artery bypass surgery and has been noncompliant with his medication since he did not even fill his prescriptions on admission here. Episode of NSVT this weekend, none since then so far. On Coreg and digoxin now. S/p Bumex gtt overnight and feels better this AM, now on bid dosing of Bumex. On supp O2, 2L NC with sats 100% Continue beta-blockers and CLAUDY inhibitors on hold for now due to low BP Replete K today Further recommendations per cardiology, Dr. Dow. 2. Mild elevation of cardiac enzymes, likely just trending down postoperatively , Back on cardiac medications. Follow-up Cardio recs today. Monitor on telemetry 3. Leukocytosis: Unclear if stress demargination postoperatively, given the yellow productive sputum even if no infiltrate on chest x-ray at admission, patient may have bronchitis, On Zosyn and Vanco currently. WBC trending down. All cx negative and except urine, repeat Urine cx pending and WBC trending down. Patient is a former smoker but only recently quit likely with COPD, continue nebulizer treatment. 4. COPD: continue Nebs and supplemental O2, 2L NC. Starting Advair and Spiriva. 5. Hyperlipidemia: Continue statin therapy 6. Benign prostatic hypertrophy: Continue Flomax 7. GERD: Continue PPIs 8. Major depressive disorder: Continue Zoloft Prophylaxis: Proton pump inhibitors for GI prophylaxis, Lovenox for DVT prophylaxis Disposition: Diuresis, COPD rx, PT eval and encouraging ambulation, follow-up cardio recs. Hopefully d/c planning in the next 1 to 2 days. Subjective 24 Hr Interval Summary Free Text/Dictation Patient doing better this AM with less respiratory distress with exertion or orthopnea reported Good diuresis over the past 2 days per weight of 65 Kg reported ( from 87 kg...) PT eval pending Exam/Review of Systems Vital Signs Vitals Vital Signs Date Time Temp Pulse Resp B/P Pulse Ox O2 Delivery O2 Flow Rate FiO2 07/07/17 11:28 98.1 78 18 100/58 99 07/07/17 07:40 Nasal Cannula 3.0 Intake and Output 07/06/17 07/06/17 07/07/17 15:00 23:00 07:00 Intake Total 400 ml Output Total 450 ml Balance -450 ml 400 ml Exam Constitutional: alert, oriented, well developed Respiratory: clear to auscultation, normal air movement Cardiovascular: nl pulses, regular rate and rhythm Gastrointestinal: non-tender, soft Musculoskeletal: nl extremities to inspection Extremities: normal pulses, other (no edema, clubbing or cyanosis ) 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: 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 II-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 intact, nl mental status, nl speech, nl strength Results Result Diagram: 07/07/17 0345 07/07/17 0345 Results 24 hrs Laboratory Tests Test 07/06/17 15:45 07/07/17 03:45 Urine Color YELLOW Urine Clarity CLEAR Urine pH 6.0 Urine Specific [place] 1.012 Urine Ketones NEGATIVE Urine Nitrite NEGATIVE Urine Bilirubin NEGATIVE Urine Urobilinogen NEGATIVE Urine Leukocyte Esterase TRACE A Urine Microscopic RBC 1 Urine Microscopic WBC 2 Urine Hemoglobin NEGATIVE Urine Glucose NEGATIVE Urine Total Protein NEGATIVE White Blood Count 11.3 H Red Blood Count 3.13 L Hemoglobin 8.2 L Hematocrit 26.3 L Mean Corpuscular Volume 84.0 Mean Corpuscular Hemoglobin 26.2 L Mean Corpuscular Hemoglobin Concent 31.2 L Red Cell Distribution Width 15.1 H Platelet Count 401 Mean Platelet Volume 9.2 Neutrophils % 75.9 Lymphocytes % 13.8 L Monocytes % 8.9 Eosinophils % 0.5 Basophils % 0.3 Nucleated Red Blood Cells % 0.0 Neutrophils # 8.6 H Lymphocytes # 1.6 Monocytes # 1.0 H Eosinophils # 0.1 Basophils # 0.0 Nucleated Red Blood Cells # 0.0 Sodium Level 139 Potassium Level 3.3 L Chloride Level 95 L Carbon Dioxide Level 30 Anion Gap 17 H Blood Urea Nitrogen 17 Creatinine 0.93 Glucose Level 128 Calcium Level 8.2 L Phosphorus Level 3.1 Magnesium Level 2.2 Vancomycin Level Trough 13.0 Medications Medications Current Medications Ascorbic Acid (Vitamin C) 500 mg DAILY PO Last administered on 07/07/17 08:17; Admin Dose 500 MG; Start 07/03/17 at 09:00 Atorvastatin Calcium (Lipitor) 80 mg DAILY@21 PO Last administered on 07/06/17 21:03; Admin Dose 80 MG; Start 07/03/17 at 21:00 Clopidogrel Bisulfate (plaVIX) 75 mg DAILY PO Last administered on 07/07/17 08: 17; Admin Dose 75 MG; Start 07/03/17 at 09:00 Ferrous Sulfate (Ferrous Sulfate (Ec)) 325 mg DAILY PO Last administered on 07/07 08:18; Admin Dose 325 MG; Start 07/03/17 at 09:00 Finasteride (Proscar) 5 mg DAILY PO Last administered on 07/07/17 08:17; Admin Dose 5 MG; Start 07/03/17 at 09:00 Pantoprazole (Protonix Tab) 40 mg DAILY@06 PO Last administered on 07/07/17 05: 50; Admin Dose 40 MG; Start 07/03/17 at 06:00 Sertraline HCl (Zoloft) 50 mg DAILY PO Last administered on 07/07/17 08:17; Admin Dose 50 MG; Start 07/03/17 at 09:00 Spironolactone (Aldactone) 25 mg DAILY PO Last administered on 07/07/17 08:17; Admin Dose 25 MG; Start 07/03/17 at 09:00 Tamsulosin HCl (Flomax) 0.4 mg HS PO Last administered on 07/06/17 21:03; Admin Dose 0.4 MG; Start 07/03/17 at 21:00 Morphine Sulfate (morphine) 4 mg Q4H PRN IV pain Last administered on 07/06/17 23:36; Admin Dose 4 MG; Start 07/03/17 at 06:00 Acetaminophen (Tylenol Tab) 650 mg Q4H PRN PO pain/fever Last administered on 20:37; Admin Dose 650 MG; Start 07/03/17 at 06:00 Ondansetron HCl 4 mg 4 mg Q4H PRN IV nausea Last administered on 07/03/17 07:50 ; Admin Dose 4 MG; Start 07/03/17 at 06:00 Piperacillin Sod/ Tazobactam Sod (Zosyn 3.375gm/ 100 ml (Pmx)) 100 ml @ 200 mls /hr Q6 IVPB Last administered on 07/07/17 11:30; Admin Dose 200 MLS/HR; Start 07/03/17 at 13:00 Aspirin (Halfprin) 81 mg DAILY PO Last administered on 07/07/17 08:17; Admin Dose 81 MG; Start 07/04/17 at 09:00 Enoxaparin Sodium (Lovenox) 40 mg DAILY SC Last administered on 07/07/17 08:22 ; Admin Dose 40 MG; Start 07/04/17 at 09:00 Acetaminophen/ Hydrocodone Bitart ([place] (5/325)) 1 tab Q4H PRN PO PAIN Last administered on 07/06/17 03:07; Admin Dose 1 TAB; Start 07/03/17 at 21:00 Digoxin 0.125 mg 0.125 mg QHS PO Last administered on 07/06/17 21:04; Admin Dose 0.125 MG; Start 07/04/17 at 21:00 Vancomycin HCl/ Sodium Chloride (Vancocin/NS) 150 ml @ 75 mls/hr Q12H IVPB Last administered on 07/07/17 05:49; Admin Dose 75 MLS/HR; Start 07/05/17 at 16: 00 Carvedilol (Coreg) 6.25 mg BID PO Last administered on 07/07/17 08:18; Admin Dose 6.25 MG; Start 07/05/17 at 21:00 Docusate Sodium (Colace) 100 mg BID PO Last administered on 07/07/17 08:17; Admin Dose 100 MG; Start 07/06/17 at 21:00 Senna (Senokot) 1 tab BID PO Last administered on 07/07/17 08:17; Admin Dose 1 TAB; Start 07/06/17 at 21:00 Potassium Chloride (Klor-Con 20) 40 meq Q4H PO Last administered on 07/07/17 11 :30; Admin Dose 40 MEQ; Start 07/07/17 at 09:00; Stop 07/07/17 at 13:01 Salmeterol Xinafoate/ Fluticasone (Advair 250/50 Diskus) 1 inh BID INH ; Start 07/07/17 at 12:00; Status UNV Tiotropium [place] (Spiriva) 1 inh DAILY INH ; Start 07/08/17 at 09:00; Status UNV DEE BERNABE Jul 07, 2017 11:55
[2017-07-07] MEDS: SALMETEROL/FLUTICASONE 250/50 INHA INH SCH ×2 (12:42→21:04)
--- NOTE | 2017-07-07 17:11 | CONS ---
Date/Time of Note Date/Time of Note DATE: 07/07/17 TIME: 17:07 Assessment/Plan Assessment/Plan Additional Assessment/Plan Acute decompensated systolic congestive heart failure Mitral regurgitation status post recent replacement with bioprosthetic valve CAD status post recent coronary artery bypass grafting with history of PCI Ischemic cardiomyopathy with ejection fraction less than 20% SIRS Tobacco use with COPD Hypertension Diabetes Peripheral arterial disease Medication noncompliance -Patient with improvement in shortness of breath after Bumex drip, denies chest pain or dizziness. With switch to p.o. Bumex in the next 24 hours if continues to improve. Patient also with known COPD seen on CT chest, I believe his dyspnea is likely multifactorial. Furthermore, he does tell me he was on home oxygen. Maintain potassium above 4.0 and magnesium above 2.0. Continue beta- blockers heart rate and blood pressure permits and antiplatelet therapy. Consultation Date/Type/Reason Admit Date/Time Jul 03, 2017 at 14:57 Type of Consultation: cv 24 HR Interval Summary Free Text/Dictation Patient with improvement in shortness of breath still with intermittent episodes. Not always associated with activity. Denies chest pain, palpitations or dizziness Exam/Review of Systems Vital Signs Vitals Vital Signs Date Time Temp Pulse Resp B/P Pulse Ox O2 Delivery O2 Flow Rate FiO2 07/07/17 16:23 98.6 83 18 109/67 98 07/07/17 07:40 Nasal Cannula 3.0 Intake and Output 07/06/17 07/06/17 07/07/17 15:00 23:00 07:00 Intake Total 400 ml Output Total 450 ml Balance -450 ml 400 ml Exam No apparent distress Constitutional: alert, oriented Head: normocephalic Respiratory: other (Coarse breath sounds bilaterally, no wheezing) Cardiovascular: other (S1-S2 heard), regular rate and rhythm, systolic murmur Gastrointestinal: bowel sounds, non-tender, soft Extremities: edema Results Result Diagram: 07/07/17 0345 07/07/17 0345 Results 24 hrs Laboratory Tests Test 07/07/17 03:45 White Blood Count 11.3 H Red Blood Count 3.13 L Hemoglobin 8.2 L Hematocrit 26.3 L Mean Corpuscular Volume 84.0 Mean Corpuscular Hemoglobin 26.2 L Mean Corpuscular Hemoglobin Concent 31.2 L Red Cell Distribution Width 15.1 H Platelet Count 401 Mean Platelet Volume 9.2 Neutrophils % 75.9 Lymphocytes % 13.8 L Monocytes % 8.9 Eosinophils % 0.5 Basophils % 0.3 Nucleated Red Blood Cells % 0.0 Neutrophils # 8.6 H Lymphocytes # 1.6 Monocytes # 1.0 H Eosinophils # 0.1 Basophils # 0.0 Nucleated Red Blood Cells # 0.0 Sodium Level 139 Potassium Level 3.3 L Chloride Level 95 L Carbon Dioxide Level 30 Anion Gap 17 H Blood Urea Nitrogen 17 Creatinine 0.93 Glucose Level 128 Calcium Level 8.2 L Phosphorus Level 3.1 Magnesium Level 2.2 Vancomycin Level Trough 13.0 Medications Medications Current Medications Ascorbic Acid (Vitamin C) 500 mg DAILY PO Last administered on 07/07/17 08:17; Admin Dose 500 MG; Start 07/03/17 at 09:00 Atorvastatin Calcium (Lipitor) 80 mg DAILY@21 PO Last administered on 07/06/17 21:03; Admin Dose 80 MG; Start 07/03/17 at 21:00 Clopidogrel Bisulfate (plaVIX) 75 mg DAILY PO Last administered on 07/07/17 08: 17; Admin Dose 75 MG; Start 07/03/17 at 09:00 Ferrous Sulfate (Ferrous Sulfate (Ec)) 325 mg DAILY PO Last administered on 07/07 08:18; Admin Dose 325 MG; Start 07/03/17 at 09:00 Finasteride (Proscar) 5 mg DAILY PO Last administered on 07/07/17 08:17; Admin Dose 5 MG; Start 07/03/17 at 09:00 Pantoprazole (Protonix Tab) 40 mg DAILY@06 PO Last administered on 07/07/17 05: 50; Admin Dose 40 MG; Start 07/03/17 at 06:00 Sertraline HCl (Zoloft) 50 mg DAILY PO Last administered on 07/07/17 08:17; Admin Dose 50 MG; Start 07/03/17 at 09:00 Spironolactone (Aldactone) 25 mg DAILY PO Last administered on 07/07/17 08:17; Admin Dose 25 MG; Start 07/03/17 at 09:00 Tamsulosin HCl (Flomax) 0.4 mg HS PO Last administered on 07/06/17 21:03; Admin Dose 0.4 MG; Start 07/03/17 at 21:00 Morphine Sulfate (morphine) 4 mg Q4H PRN IV pain Last administered on 07/06/17 23:36; Admin Dose 4 MG; Start 07/03/17 at 06:00 Acetaminophen (Tylenol Tab) 650 mg Q4H PRN PO pain/fever Last administered on 20:37; Admin Dose 650 MG; Start 07/03/17 at 06:00 Ondansetron HCl 4 mg 4 mg Q4H PRN IV nausea Last administered on 07/03/17 07:50 ; Admin Dose 4 MG; Start 07/03/17 at 06:00 Piperacillin Sod/ Tazobactam Sod (Zosyn 3.375gm/ 100 ml (Pmx)) 100 ml @ 200 mls /hr Q6 IVPB Last administered on 07/07/17 11:30; Admin Dose 200 MLS/HR; Start 07/03/17 at 13:00 Aspirin (Halfprin) 81 mg DAILY PO Last administered on 07/07/17 08:17; Admin Dose 81 MG; Start 07/04/17 at 09:00 Enoxaparin Sodium (Lovenox) 40 mg DAILY SC Last administered on 07/07/17 08:22 ; Admin Dose 40 MG; Start 07/04/17 at 09:00 Acetaminophen/ Hydrocodone Bitart ([place] (5/325)) 1 tab Q4H PRN PO PAIN Last administered on 07/06/17 03:07; Admin Dose 1 TAB; Start 07/03/17 at 21:00 Digoxin 0.125 mg 0.125 mg QHS PO Last administered on 07/06/17 21:04; Admin Dose 0.125 MG; Start 07/04/17 at 21:00 Vancomycin HCl/ Sodium Chloride (Vancocin/NS) 150 ml @ 75 mls/hr Q12H IVPB Last administered on 07/07/17 15:16; Admin Dose 75 MLS/HR; Start 07/05/17 at 16: 00 Carvedilol (Coreg) 6.25 mg BID PO Last administered on 07/07/17 08:18; Admin Dose 6.25 MG; Start 07/05/17 at 21:00 Docusate Sodium (Colace) 100 mg BID PO Last administered on 07/07/17 08:17; Admin Dose 100 MG; Start 07/06/17 at 21:00 Senna (Senokot) 1 tab BID PO Last administered on 07/07/17 08:17; Admin Dose 1 TAB; Start 07/06/17 at 21:00 Salmeterol Xinafoate/ Fluticasone (Advair 250/50 Diskus) 1 inh BID INH Last administered on 07/07/17 12:42; Admin Dose 1 INH; Start 07/07/17 at 12:00 Tiotropium [place] (Spiriva) 1 inh DAILY INH ; Start 07/08/17 at 09:00 Barney Dow DO Jul 07, 2017 17:11
[2017-07-07] MEDS: HYDROCODONE/APAP (5/325) TAB PO PRN (17:29)
[2017-07-07] MEDS: morphine 4 MG/ML VIAL IV PRN (18:29)
[2017-07-07] MEDS: ATORVASTATIN 80 MG TAB PO SCH (21:05)
[2017-07-07] MEDS: TAMSULOSIN (SR) 0.4 MG CAP PO SCH (21:05)
[2017-07-07] MEDS: DIGOXIN 0.125 MG TAB PO SCH (21:05)
[2017-07-08] VITALS (7 sets, daily range): BP systolic 102–111; BP diastolic 57–69; PULSE 72–80; RESP 17–18
[2017-07-08] MEDS: VANCOMYCIN 750 MG in SOD CHLORIDE 0.9% 150 ML IVPB SCH (04:42)
[2017-07-08 05:33] LABS: BASOPHIL # 0.1 10^3/ul (0.0-0.1); BASOPHILS % 0.4 % (0.0-2.0); EOSINOPHILS # 0.1 10^3/ul (0.0-0.5); HEMATOCRIT 26.9 % (42.0-52.0); HEMOGLOBIN 8.3 g/dl (14.0-18.0); LYMPHOCYTES % 16.7 % (15.0-51.0); MEAN CORPUSCULAR HEMOGLOBIN 26.2 pg (29.0-33.0); MEAN CORPUSCULAR HGB CONC 30.9 g/dl (32.0-37.0); MEAN CORPUSCULAR VOLUME 84.9 fl (82.0-101.0); MONOCYTES % 8.2 % (0.0-11.0); NEUTROPHIL # 8.6 10^3/ul (1.6-7.5); PLATELET COUNT 410 10^3/UL (140-415); RED BLOOD COUNT 3.17 10^6/ul (4.70-6.10); WHITE BLOOD COUNT 11.8 10^3/ul (4.8-10.8)
[2017-07-08] MEDS: morphine 4 MG/ML VIAL IV PRN (05:38)
[2017-07-08] MEDS: PANTOPRAZOLE (EC) 40 MG TAB PO SCH (05:38)
[2017-07-08] MEDS: PIPER-TAZO 3.375 GM IV (PMX) 100 ML IVPB SCH ×3 (05:38→11:12)
[2017-07-08 05:54] LABS: ALBUMIN 3.3 g/dl (3.3-4.9); ALBUMIN/GLOBULIN RATIO 1.06; BILIRUBIN,INDIRECT 0.5 mg/dl (0-1.1); BILIRUBIN,TOTAL 0.5 mg/dl (0.2-1.3); CALCIUM 8.6 mg/dl (8.4-10.2); CREATININE 0.84 mg/dl (0.61-1.24); PHOSPHORUS 3.1 mg/dl (2.5-4.9); POTASSIUM 3.7 mmol/L (3.5-5.1); TOTAL PROTEIN 6.4 g/dl (6.1-8.1)
[2017-07-08] MEDS ORDERED: BUMETANIDE 1 MG TAB PO SCH (06:00)
[2017-07-08] MEDS: SENNA TAB PO SCH (08:41)
[2017-07-08] MEDS: CLOPIDOGREL 75 MG TAB PO SCH (08:42)
[2017-07-08] MEDS: SERTRALINE 50 MG TAB PO SCH (08:42)
[2017-07-08] MEDS: SPIRONOLACTONE 25 MG TAB PO SCH (08:42)
[2017-07-08] MEDS: DOCUSATE SODIUM 100 MG CAP PO SCH (08:43)
[2017-07-08] MEDS: ASCORBIC ACID 500 MG TAB PO SCH (08:43)
[2017-07-08] MEDS: FINASTERIDE 5 MG TAB PO SCH (08:43)
[2017-07-08] MEDS: FERROUS SULFATE (EC) 325 MG TAB PO SCH (08:43)
[2017-07-08] MEDS: ASPIRIN (EC) 81 MG TAB PO SCH (08:43)
[2017-07-08] MEDS: SALMETEROL/FLUTICASONE 250/50 INHA INH SCH (08:43)
[2017-07-08] MEDS: ENOXAPARIN 40 MG/0.4 ML SYG SC SCH (08:47)
[2017-07-08] MEDS ORDERED: LISINOPRIL 5 MG TAB PO SCH (09:00)
[2017-07-08] MEDS ORDERED: TIOTROPIUM 18 MCG CAPSULE INHA DEV INH SCH (09:00)
[2017-07-08] MEDS: HYDROCODONE/APAP (5/325) TAB PO PRN (11:13)
[2017-07-08] MEDS ORDERED: POTASSIUM CHLORIDE (SR) 20 MEQ TAB PO STA (13:40)
--- NOTE | 2017-07-08 13:50 | PN ---
Date/Time of Note Date/Time of Note DATE: 07/08/17 TIME: 13:33 Assessment/Plan VTE Prophylaxis VTE Prophylaxis Intervention: SCD's Lines/Catheters IV [facility]ter [facility]from [facility] Saline Lock Urinary Cath still in place: No Assessment/Plan Assessment/Plan 66-year-old male with: 1. Respiratory distress, secondary to congestive heart failure exacerbation, patient is known to have cardiomyopathy with ejection fraction of 20%, he status post coronary artery bypass surgery and has been noncompliant with his medication since he did not even fill his prescriptions on admission here. Episode of NSVT this weekend, none since then so far. On Coreg and digoxin now. On Bumex po. On supp O2 as needed at home. Continue beta-blockers and CLAUDY inhibitors resumed at low dose, so far tolerated Replete K today Further recommendations per cardiology, Dr. Dow. 2. Mild elevation of cardiac enzymes, likely just trending down postoperatively , Back on cardiac medications. Follow-up Cardio recs today. 3. Leukocytosis: Unclear if stress demargination postoperatively, given the yellow productive sputum even if no infiltrate on chest x-ray at admission, patient may have bronchitis, We will discharge on Augmentin for 5 more days, discontinue IV antibiotics today White blood cell count has trended down close to normal Patient is a former smoker but only recently quit likely with COPD, continue nebulizer treatment. 4. COPD: continue Nebs and supplemental O2, 2L NC. Now also on Advair and Spiriva. 5. Hyperlipidemia: Continue statin therapy 6. Benign prostatic hypertrophy: Continue Flomax 7. GERD: Continue PPIs 8. Major depressive disorder: Continue Zoloft Prophylaxis: Proton pump inhibitors for GI prophylaxis, Lovenox for DVT prophylaxis Disposition: If okay with cardiology, plan to discharge home today on Bumex p.o. 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 Subjective 24 Hr Interval Summary Free Text/Dictation Patient doing well this morning, he has been able to ambulate with physical therapy, he has minimal dyspnea on exertion but still satting 94%. He does have oxygen at home as needed already. He has been well diuresed, he denies any chest pain or chest pressure. He would like to go home today. I will discuss with cardiology if okay to discharge home on Bumex 1 mg twice daily. Exam/Review of Systems Vital Signs Vitals Vital Signs Date Time Temp Pulse Resp B/P Pulse Ox O2 Delivery O2 Flow Rate FiO2 07/08/17 13:24 76 07/08/17 11:55 98.8 18 102/57 98 07/08/17 11:18 Nasal Cannula 3.0 Intake and Output 07/07/17 07/07/17 07/08/17 15:00 23:00 07:00 Intake Total 100 ml 400 ml Balance 100 ml 400 ml Exam Constitutional: alert, oriented, well developed Respiratory: clear to auscultation, normal air movement, other (Sternotomy scar healing very well, no signs of acute) Cardiovascular: nl pulses, regular rate and rhythm Gastrointestinal: non-tender, soft Musculoskeletal: nl extremities to inspection Extremities: normal pulses, other (No edema, clubbing or cyanosis) 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: NETWORK ENGINEER ADMINISTRATOR II-XII intact, nl mental status, nl speech, nl strength Results Result Diagram: 07/08/1714 07/08/17 0514 Results 24 hrs Laboratory Tests Test 07/08/17 05:14 White Blood Count 11.8 H Red Blood Count 3.17 L Hemoglobin 8.3 L Hematocrit 26.9 L Mean Corpuscular Volume 84.9 Mean Corpuscular Hemoglobin 26.2 L Mean Corpuscular Hemoglobin Concent 30.9 L Red Cell Distribution Width 15.0 H Platelet Count 410 Mean Platelet Volume 9.0 Neutrophils % 73.0 Lymphocytes % 16.7 Monocytes % 8.2 Eosinophils % 1.0 Basophils % 0.4 Nucleated Red Blood Cells % 0.0 Neutrophils # 8.6 H Lymphocytes # 2.0 Monocytes # 1.0 H Eosinophils # 0.1 Basophils # 0.1 Nucleated Red Blood Cells # 0.0 Sodium Level 138 Potassium Level 3.7 Chloride Level 95 L Carbon Dioxide Level 30 Anion Gap 17 H Blood Urea Nitrogen 18 Creatinine 0.84 Glucose Level 139 Calcium Level 8.6 Phosphorus Level 3.1 Magnesium Level 2.0 Total Bilirubin 0.5 Direct Bilirubin 0.00 Indirect Bilirubin 0.5 Aspartate Amino Transf (AST/SGOT) 23 Alanine Aminotransferase (ALT/SGPT) 45 Alkaline Phosphatase 95 Total Protein 6.4 Albumin 3.3 Globulin 3.10 Albumin/Globulin Ratio 1.06 Medications Medications Current Medications Ascorbic Acid (Vitamin C) 500 mg DAILY PO Last administered on 07/08/17 08:43; Admin Dose 500 MG; Start 07/03/17 at 09:00 Atorvastatin Calcium (Lipitor) 80 mg DAILY@21 PO Last administered on 07/07/17 21:05; Admin Dose 80 MG; Start 07/03/17 at 21:00 Clopidogrel Bisulfate (plaVIX) 75 mg DAILY PO Last administered on 07/08/17 08: 42; Admin Dose 75 MG; Start 07/03/17 at 09:00 Ferrous Sulfate (Ferrous Sulfate (Ec)) 325 mg DAILY PO Last administered on 07/08 08:43; Admin Dose 325 MG; Start 07/03/17 at 09:00 Finasteride (Proscar) 5 mg DAILY PO Last administered on 07/08/17 08:43; Admin Dose 5 MG; Start 07/03/17 at 09:00 Pantoprazole (Protonix Tab) 40 mg DAILY@06 PO Last administered on 07/08/17 05: 38; Admin Dose 40 MG; Start 07/03/17 at 06:00 Sertraline HCl (Zoloft) 50 mg DAILY PO Last administered on 07/08/17 08:42; Admin Dose 50 MG; Start 07/03/17 at 09:00 Spironolactone (Aldactone) 25 mg DAILY PO Last administered on 07/08/17 08:42; Admin Dose 25 MG; Start 07/03/17 at 09:00 Tamsulosin HCl (Flomax) 0.4 mg HS PO Last administered on 07/07/17 21:05; Admin Dose 0.4 MG; Start 07/03/17 at 21:00 Morphine Sulfate (morphine) 4 mg Q4H PRN IV pain Last administered on 07/08/17 05:38; Admin Dose 4 MG; Start 07/03/17 at 06:00 Acetaminophen (Tylenol Tab) 650 mg Q4H PRN PO pain/fever Last administered on 20:37; Admin Dose 650 MG; Start 07/03/17 at 06:00 Ondansetron HCl 4 mg 4 mg Q4H PRN IV nausea Last administered on 07/03/17 07:50 ; Admin Dose 4 MG; Start 07/03/17 at 06:00 Piperacillin Sod/ Tazobactam Sod (Zosyn 3.375gm/ 100 ml (Pmx)) 100 ml @ 200 mls /hr Q6 IVPB Last administered on 07/08/17 11:12; Admin Dose 200 MLS/HR; Start 07/03/17 at 13:00 Aspirin (Halfprin) 81 mg DAILY PO Last administered on 07/08/17 08:43; Admin Dose 81 MG; Start 07/04/17 at 09:00 Enoxaparin Sodium (Lovenox) 40 mg DAILY SC Last administered on 07/08/17 08:47 ; Admin Dose 40 MG; Start 07/04/17 at 09:00 Acetaminophen/ Hydrocodone Bitart ([place] (5/325)) 1 tab Q4H PRN PO PAIN Last administered on 07/08/17 11:13; Admin Dose 1 TAB; Start 07/03/17 at 21:00 Digoxin 0.125 mg 0.125 mg QHS PO Last administered on 07/07/17 21:05; Admin Dose 0.125 MG; Start 07/04/17 at 21:00 Vancomycin HCl/ Sodium Chloride (Vancocin/NS) 150 ml @ 75 mls/hr Q12H IVPB Last administered on 07/08/17 04:42; Admin Dose 75 MLS/HR; Start 07/05/17 at 16: 00 Carvedilol (Coreg) 6.25 mg BID PO Last administered on 07/08/17 08:42; Admin Dose 6.25 MG; Start 07/05/17 at 21:00 Docusate Sodium (Colace) 100 mg BID PO Last administered on 07/08/17 08:43; Admin Dose 100 MG; Start 07/06/17 at 21:00 Senna (Senokot) 1 tab BID PO Last administered on 07/08/17 08:41; Admin Dose 1 TAB; Start 07/06/17 at 21:00 Salmeterol Xinafoate/ Fluticasone (Advair 250/50 Diskus) 1 inh BID INH Last administered on 07/08/17 08:43; Admin Dose 1 INH; Start 07/07/17 at 12:00 Tiotropium [place] (Spiriva) 1 inh DAILY INH Last administered on 07/08/17 08: 43; Admin Dose 1 INH; Start 07/08/17 at 09:00 Lisinopril (Zestril) 2.5 mg DAILY PO Last administered on 07/08/17t 08:43; Admin Dose 2.5 MG; Start 07/08/17 at 09:00 DEE BERNABE Jul 08, 2017 13:49
--- NOTE | 2017-07-08 13:55 | PDOCDIS ---
Discharge Instructions CONDITION Patient Condition: Stable HOME CARE INSTRUCTIONS: Special Diet: 2 gm NA ACTIVITY: Activity Restrictions: Slowly Increase Activity FOLLOW UP/APPOINTMENTS Follow-up Plan Follow-up with primary care physician within 1 week Follow-up with primary test engine evaluator within 1-2 weeks Follow-up with cardiothoracic surgery as previously scheduled from [facility] discharge Home health PT DEE BERNABE Jul 08, 2017 13:55
[2017-07-08] MEDS ORDERED: CARV6.2579 PO (14:02)
[2017-07-08] MEDS ORDERED: PANT40TA4 PO (14:02)
[2017-07-08] MEDS ORDERED: CLOP75TA27 PO (14:02)
[2017-07-08] MEDS ORDERED: ASPI-664 PO (14:02)
[2017-07-08] MEDS ORDERED: SPIR25TA PO (14:02)
[2017-07-08] MEDS ORDERED: DIGO125T PO (14:02)
[2017-07-08] MEDS ORDERED: TIOT18CA INH (14:02)
[2017-07-08] MEDS ORDERED: AMOX1TAB10 PO (14:02)
[2017-07-08] MEDS ORDERED: POTA20TA96 PO (14:02)
[2017-07-08] MEDS ORDERED: LISI2.5T59 PO (14:02)
[2017-07-08] MEDS ORDERED: ADV25050 INH (14:02)
[2017-07-08] MEDS ORDERED: BUME1TAB18 PO (14:02)
--- NOTE | 2017-07-08 17:51 | PN ---
Date/Time of Note Date/Time of Note DATE: 07/08/17 TIME: 17:50 Assessment/Plan VTE Prophylaxis VTE Prophylaxis Intervention: SCD's Lines/Catheters [facility] Saline Lock Urinary Cath still in place: No Assessment/Plan Assessment/Plan Acute decompensated systolic congestive heart failure Mitral regurgitation status post recent replacement with bioprosthetic valve CAD status post recent coronary artery bypass grafting with history of PCI Ischemic cardiomyopathy with ejection fraction less than 20% SIRS Tobacco use with COPD Hypertension Diabetes Peripheral arterial disease Medication noncompliance -Patient with improvement in shortness of breath after Bumex drip, denies chest pain or dizziness. continue po diuretics in the next 24 hours if continues to improve. Patient also with known COPD seen on CT chest, I believe his dyspnea is likely multifactorial. Furthermore, he does tell me he was on home oxygen. Maintain potassium above 4.0 and magnesium above 2.0. Continue beta-blockers heart rate and blood pressure permits and antiplatelet therapy. Subjective 24 Hr Interval Summary Free Text/Dictation the aptient with no compaonts Exam/Review of Systems Vital Signs Vitals Vital Signs Date Time Temp Pulse Resp B/P Pulse Ox O2 Delivery O2 Flow Rate FiO2 07/08/17 13:24 76 07/08/17 11:55 98.8 18 102/57 98 07/08/17 11:18 Nasal Cannula 3.0 Intake and Output 07/07/17 07/07/17 07/08/17 15:00 23:00 07:00 Intake Total 100 ml 400 ml Balance 100 ml 400 ml Results Result Diagram: 07/08/17 0514 07/08/17 0514 Results 24 hrs Laboratory Tests Test 07/08/17 05:14 White Blood Count 11.8 H Red Blood Count 3.17 L Hemoglobin 8.3 L Hematocrit 26.9 L Mean Corpuscular Volume 84.9 Mean Corpuscular Hemoglobin 26.2 L Mean Corpuscular Hemoglobin Concent 30.9 L Red Cell Distribution Width 15.0 H Platelet Count 410 Mean Platelet Volume 9.0 Neutrophils % 73.0 Lymphocytes % 16.7 Monocytes % 8.2 Eosinophils % 1.0 Basophils % 0.4 Nucleated Red Blood Cells % 0.0 Neutrophils # 8.6 H Lymphocytes # 2.0 Monocytes # 1.0 H Eosinophils # 0.1 Basophils # 0.1 Nucleated Red Blood Cells # 0.0 Sodium Level 138 Potassium Level 3.7 Chloride Level 95 L Carbon Dioxide Level 30 Anion Gap 17 H Blood Urea Nitrogen 18 Creatinine 0.84 Glucose Level 139 Calcium Level 8.6 Phosphorus Level 3.1 Magnesium Level 2.0 Total Bilirubin 0.5 Direct Bilirubin 0.00 Indirect Bilirubin 0.5 Aspartate Amino Transf (AST/SGOT) 23 Alanine Aminotransferase (ALT/SGPT) 45 Alkaline Phosphatase 95 Total Protein 6.4 Albumin 3.3 Globulin 3.10 Albumin/Globulin Ratio 1.06 PEYMAN CRUZ MD Jul 08, 2017 17:50
[2017-07-08] MEDS ORDERED: AMOXICILLIN/CLAV 875 MG TAB PO SCH (21:00)
== END 2017-07-08 15:57 | disposition home health service (06) | DRG 291 ==
LOC: E/R 03:17 → MS4 14:57
PROVIDERS: ADMIT Legal Medicine; ATTEND Legal Medicine
DX: I11.0 Hypertensive heart disease with heart failure (principal); G93.40 Encephalopathy, unspecified; I47.2 Ventricular tachycardia; I42.9 Cardiomyopathy, unspecified; I50.23 Acute on chronic systolic (congestive) heart failure; D72.829 Elevated white blood cell count, unspecified; E78.5 Hyperlipidemia, unspecified; N40.0 Benign prostatic hyperplasia without lower urinary tract symptoms; K21.9 Gastro-esophageal reflux disease without esophagitis; F32.9 Major depressive disorder, single episode, unspecified; Z95.1 Presence of aortocoronary bypass graft; J44.9 Chronic obstructive pulmonary disease, unspecified; D64.9 Anemia, unspecified; I73.9 Peripheral vascular disease, unspecified; I34.0 Nonrheumatic mitral (valve) insufficiency; Z95.2 Presence of prosthetic heart valve; Z91.14 Patient's other noncompliance with medication regimen; Z87.891 Personal history of nicotine dependence
CPT/HCPCS: 36415; 70450; 71010; 71020; 71250; 80048; 80053; 80061; 80202; 80306; 80307; 81001; 82550; 82553; 83605; 83735; 83880; 84100; 84484; 85025; 85610; 85730; 87040; 87081; 87086; 93005; 93306; 96365; 96366; 96375; 96376; 97162; J1650; J1940; J2060; J2270; J2405; J2543; J3370; J7050

== ENCOUNTER 2017-08-16 00:40 | Inpatient (IN) | payer OTHER ==
[~2017-08-16] VITALS: Ht 170.2 cm; Wt 81.5 kg
[~2017-08-16 00:40] MED LIST changes: +ADV25050 INH; +AMOX1TAB10 PO; +ASPI-664 PO; -ASPI325T32 PO; -BENA10TA48 PO; +BUME1TAB18 PO; +CARV6.2579 PO; +DIGO125T PO; +LISI2.5T59 PO; +POTA20TA96 PO; +TIOT18CA INH
--- NOTE | 2017-08-16 00:54 | ERA ---
ER Documentation Chief Complaint Date/Time DATE: 08/16/17 TIME: 00:51 Chief Complaint CP all day long, right and left sided HPI 66-year-old male comes emergency room with chest pain and shortness of breath began this morning. Chest pain was across his entire chest but he says the main issue is that his shortness of breath has been increasing all day as well. Says he can hardly take a few steps without becoming so short of breath he has to sit down again. Denies nausea. Is given 162 mg of aspirin in the ambulance and a couple of nitro spray is to help decrease his chest pain. He thinks his shortness of breath is getting worse. Review the patient's EMR from his previous visit when he was discharged with a cardiac consult saying his ejection fraction was 20%. ROS All systems reviewed and are negative except as per history of present illness. Medications Home Meds Active Scripts Lisinopril* (Lisinopril*) 2.5 Mg Tablet, 2.5 MG PO DAILY, #30 TAB 3 Refills Prov:DEE BERNABE 07/08/17 Digoxin* (Digitek*) 125 Mcg Tablet, 0.125 MG PO QHS for 30 Days, TAB 3 Refills Prov:DEE BERANBE 07/08/17 Carvedilol* (Carvedilol*) 6.25 Mg Tablet, 6.25 MG PO BID for 30 Days, TAB 3 Refills Prov:DEE BERNABE 07/08/17 Aspirin* (Aspirin* EC) 81 Mg Tablet.dr, 81 MG PO DAILY for 30 Days, 3 Refills Prov:DEE BERNABE 07/08/17 Potassium Chloride* (Potassium Chloride*) 20 Meq Tablet.er, 20 MEQ PO DAILY for 30 Days, TAB.SA Prov:DEE BERNABE 07/08/17 Bumetanide* (Bumetanide*) 1 Mg Tablet, 1 MG PO BID DIURETICS for 30 Days, TAB 3 Refills Prov:DEE BERNABE 07/08/17 Salmeterol Xinaf/Fluticasone* (Advair*) 250-50 Diskus Inhaler, 1 INH INH BID, # 1 INHALER 3 Refills Prov:DEE BERNABE 07/08/17 Tiotropium [place]* (Spiriva*) 18 Mcg Cap.w.dev, 1 INH INH DAILY, #1 INHALER 3 Refills Prov:DEE BERNABE 07/08/17 Amoxicillin/Potassium Clav (Amox-Clav 875-125 mg Tablet) 875-125 mg Tab, 875 MG PO BID for 5 Days, TAB Prov:DEE BERNABE 07/08/17 Spironolactone* (Aldactone*) 25 Mg Tablet, 25 MG PO DAILY for 30 Days, TAB 3 Refills Prov:DEE BERNABE 07/08/17 Pantoprazole* (Pantoprazole*) 40 Mg Tablet.dr, 40 MG PO DAILY for 30 Days, 3 Refills Prov:DEE BERNABE 07/08/17 Clopidogrel Bisulfate (Clopidogrel) 75 Mg Tablet, 75 MG PO DAILY for 30 Days, TAB 3 Refills Prov:DEE BERNABE 07/08/17 Tamsulosin Hcl* (Flomax*) 0.4 Mg Cap.er.24h, 0.4 MG PO HS for 1 Day, CAP Prov:TAYLOR TSANG MD 09/09/16 Sertraline Hcl* (Sertraline Hcl*) 50 Mg Tablet, 50 MG PO DAILY for 1 Day, TAB Prov:TAYLOR TSANG MD 09/09/16 Hydrocodone Bit-Acetaminophen (Hydrocodone Bit-APAP) 5-325MG Tablet, 1 TAB PO Q3H Y for PAIN LEVEL 1-3 for 1 Day, TAB Prov:TAYLOR TSANG MD 09/09/16 Finasteride* (Finasteride*) 5 Mg Tablet, 5 MG PO DAILY for 1 Day, TAB Prov:TAYLOR TSANG MD 09/09/16 Ferrous Sulfate* (Ferrous Sulfate*) 325 Mg Tabec, 325 MG PO DAILY for 1 Day, TAB Prov:TAYLOR TSANG MD 09/09/16 Atorvastatin* (Atorvastatin*) 80 Mg Tablet, 80 MG PO DAILY@21 for 1 Day, TAB Prov:TAYLOR TSANG MD 09/09/16 Ascorbic Acid (Vitamin C) 500 Mg Tab, 500 MG PO DAILY for 1 Day, TAB Prov:TAYLOR TSANG MD 09/09/16 Allergies Allergies: Coded Allergies: No Known Allergy (Unverified , 07/03/17) PMhx/Soc History of Surgery: Yes (CABG [place] 1 week ago) Anesthesia Reaction: No Hx 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 Disorder: No Hx Respiratory Disorders: Yes Hx Cardiac Disorders: Yes Hx Psychiatric Problems: No Hx Miscellaneous Medical Probl: Yes (CHF, cardiomyopathy, s/p CABG) Hx Alcohol Use: No Hx Substance Use: No Hx Tobacco Use: Yes Physical Exam Vitals Vital Signs Date Time Temp Pulse Resp B/P Pulse Ox O2 Delivery O2 Flow Rate FiO2 08/16/17 04:49 100 100 50 08/16/17 01:00 Nasal Cannula 3 08/16/17 00:49 98.4 107 30 130/94 95 Physical Exam Const: [] Moderate distress, tachypneic, uncomfortable Head: Atraumatic Eyes: Normal Conjunctiva ENT: Normal External Ears, Nose and Mouth. Neck: Full range of motion..~ No meningismus. Resp: .Decreased bibasilar breath sounds with rales, some accessory muscle use , tachypnea Cardio: Regular Tachycardia, no murmurs Abd: Soft, non tender, non distended. Normal bowel sounds Skin: No petechiae or rashes Back: No midline or flank tenderness Ext: No cyanosis, or edema Neur: Awake and alert and oriented 3, no focal deficits Psych: Anxious Result Diagram: 08/16/175 08/16/17 023 Results 24 hrs Laboratory Tests Test 08/16/17 02:35 White Blood Count 9.610^3/ul Red Blood Count 4.2810^6/ul Hemoglobin 10.9g/dl Hematocrit 34.1% Mean Corpuscular Volume 79.7fl Mean Corpuscular Hemoglobin 25.5pg Mean Corpuscular Hemoglobin Concent 32.0g/dl Red Cell Distribution Width 14.4% Platelet Count 71968^3/UL Mean Platelet Volume 10.4fl Neutrophils % 71.7% Lymphocytes % 19.1% Monocytes % 4.9% Eosinophils % 3.1% Basophils % 0.9% Nucleated Red Blood Cells % 0.0/100WBC Neutrophils # 6.810^3/ul Lymphocytes # 1.810^3/ul Monocytes # 0.510^3/ul Eosinophils # 0.310^3/ul Basophils # 0.110^3/ul Nucleated Red Blood Cells # 0.010^3/ul Sodium Level 140mmol/L Potassium Level 3.9mmol/L Chloride Level 106mmol/L Carbon Dioxide Level 25mmol/L Anion Gap 13 Blood Urea Nitrogen 21mg/dl Creatinine 0.87mg/dl Glucose Level 124mg/dl Calcium Level 9.3mg/dl Troponin I 0.038ng/ml B-Type Natriuretic Peptide 17299XA/ML Current Medications Medications (Trade) Dose Ordered Sig/Dimitrios Route PRN Reason Start Time Stop Time Status Last Admin Dose Admin Aspirin (Aspirin) 325 mg ONCE STAT PO 08/16/17 01:45 08/16/17 01:48 DC 08/16/17 02:36 Furosemide (Lasix) 40 mg ONCE ONCE IV 08/16/17 02:30 08/16/17 02:31 DC 08/16/17 02:41 Nitroglycerin (Nitroglycerin (Sl Tab) 0.4 Mg) 1 tab ONCE ONCE SL 08/16/17 02:30 08/16/17 02:31 DC 08/16/17 02:36 Lorazepam (Ativan) 1 mg ONCE ONCE IV 08/16/17 04:00 08/16/17 04:01 DC 08/16/17 04:05 Procedures/MDM EKG interpretation: Sinus tachycardia rate of 105, left axis deviation, poor R- wave progression in precordial leads, no ST or T-wave changes concerning for elevations, depressions or T-wave inversions concerning for acute ischemia, QT of 496. Departure Diagnosis: Primary Impression: Acute CHF Additional Impression: Chest pain Condition: Serious ELENANIKHILDANNA DO Aug 16, 2017 00:54
[2017-08-16] MEDS ORDERED: ASPIRIN 325 MG TAB PO STA (01:45)
[2017-08-16] MEDS ORDERED: NITROGLYCERIN (SL) 0.4 MG TAB SL ONE (02:30)
[2017-08-16] MEDS ORDERED: FUROSEMIDE 40 MG INJ IV ONE (02:30)
--- NOTE | 2017-08-16 02:46 | RADRPT ---
PROCEDURE: XR Chest. CLINICAL INDICATION: Chest pain. TECHNIQUE: Single frontal view of the chest. COMPARISON: 07/04/2017. FINDINGS: Cardiomegaly. Elevation right hemidiaphragm. Pulmonary vascular congestion is seen, with increased mild patchy atelectasis versus airspace diseas e at the right lung base. Previously seen atelectasis versus airspace disease at the left lung base is substantially improved over the interval. Suspected small right pleural effusion. No signs of pneumothorax are seen. The osseous structures and soft tissues are unremarkable. IMPRESSION: 1. Pulmonary vascular congestion with bilateral patchy atelectasis versus airspace disease. 2. Nevertheless, atelectasis versus airspace disease at the left lung base is substantially improved over the interval. 3. Suspected small right pleural effusion. RPTAT: [facility] Physician Marvin Date Time Electronically viewed and signed by Physician Marvin on 08/16/2017 02:45 RS/
[2017-08-16] MEDS ORDERED: LORAZEPAM 2 MG INJ IV ONE (04:00)
[2017-08-16 04:02] LABS: BASOPHIL # 0.1 10^3/ul (0.0-0.1); BASOPHILS % 0.9 % (0.0-2.0); EOSINOPHILS # 0.3 10^3/ul (0.0-0.5); EOSINOPHILS % 3.1 % (0.0-7.0); HEMATOCRIT 34.1 % (42.0-52.0); HEMOGLOBIN 10.9 g/dl (14.0-18.0); LYMPHOCYTES # 1.8 10^3/ul (0.8-2.9); LYMPHOCYTES % 19.1 % (15.0-51.0); MEAN CORPUSCULAR HEMOGLOBIN 25.5 pg (29.0-33.0); MEAN CORPUSCULAR VOLUME 79.7 fl (82.0-101.0); MEAN PLATELET VOLUME 10.4 fl (7.4-10.4); MONOCYTE # 0.5 10^3/ul (0.3-0.9); MONOCYTES % 4.9 % (0.0-11.0); NEUTROPHIL # 6.8 10^3/ul (1.6-7.5); NEUTROPHILS % 71.7 % (39.0-77.0); PLATELET COUNT 284 10^3/UL (140-415); RED BLOOD COUNT 4.28 10^6/ul (4.70-6.10); RED CELL DISTRIBUTION WIDTH 14.4 % (11.5-14.5); WHITE BLOOD COUNT 9.6 10^3/ul (4.8-10.8)
[2017-08-16 04:07] LABS: CALCIUM 9.3 mg/dl (8.4-10.2); CREATININE 0.87 mg/dl (0.61-1.24); POTASSIUM 3.9 mmol/L (3.5-5.1)
[2017-08-16 04:19] LABS: TROPONIN-I 0.038 ng/ml (0.00-0.12)
[2017-08-16 06:27] LABS: AADO2 Arterial 78.9 mmHg (7.0-24.0); Arterial Base Excess 0.8 mmol/L (-3.0-3); Arterial COHb 1.1 % (0.0-3.0); Arterial Fraction of Oxyhgb 97.8 % (93.0-99.0); Arterial HCO3 24.8 mmol/L (22.0-26.0); Arterial MetHb 0.3 % (0.0-1.5); Arterial Total Hemglobin 12.3 g/dl (12.0-18.0); Blood Gas IEPAP 15/5; Blood Gas PS 10; MODE MASK - BIPAP
[2017-08-16] MEDS ORDERED: ACETAMINOPHEN 325 MG TAB PO PRN ×2 (06:30→12:00)
[2017-08-16] MEDS ORDERED: ONDANSETRON 4 MG INJ IV PRN ×2 (06:30→12:00)
[2017-08-16 08:41] LABS: TROPONIN-I 0.04 ng/ml (0.00-0.12)
[2017-08-16 08:42] LABS: CK-MB 2.77 ng/ml (0.0-2.4)
[2017-08-16 08:46] VITALS: BP 109/72; RESP 16
[2017-08-16 09:00] VITALS: Ht 170.2 cm; Wt 81.5 kg
[2017-08-16 11:23] VITALS: BP 107/59; RESP 16
[2017-08-16] MEDS ORDERED: BUMETANIDE 1 MG INJ IV SCH (12:00)
[2017-08-16] MEDS ORDERED: DOCUSATE SODIUM 100 MG CAP PO PRN (12:00)
[2017-08-16] MEDS ORDERED: NACL 0.9% 3 ML SYG IV SCH (12:00)
[2017-08-16] MEDS ORDERED: ZOLPIDEM 5 MG TAB PO PRN (12:00)
[2017-08-16 14:39] LABS: CK-MB 2.51 ng/ml (0.0-2.4); TROPONIN-I 0.038 ng/ml (0.00-0.12)
[2017-08-16] MEDS: HYDROCODONE/APAP (5/325) TAB PO PRN (14:43)
[2017-08-16 15:42] VITALS: BP 105/68; RESP 16
[2017-08-16] MEDS: BUMETANIDE 1 MG INJ IV SCH (17:46)
[2017-08-16] MEDS: morphine 2 MG INJ IV PRN (18:54)
--- NOTE | 2017-08-16 19:14 | HP ---
Date/Time of Note Date/Time of Note DATE: 08/16/17 TIME: 19:10 Assessment/Plan VTE Prophylaxis VTE Prophylaxis Intervention: heparin Lines/Catheters IV [facility] Saline Lock Assessment/Plan Chief Complaint/Hosp Course 1. CHF exacerbation -Start increased dose of Bumex at 2 mg IV every 12 hours -Consult cardiology if needed 2. COPD- stable Continue home meds 3. BPH Continue home meds 4. GERD Continue home meds Prophylaxis: Heparin Problems: HPI/ROS Admit Date/Time Admit Date/Time Aug 16, 2017 at 06:28 Hx of Present Illness Patient is a 66-year-old male with a history of CHF with an EF 20%, coronary disease, COPD, BPH. Patient has had multiple hospitalizations with CHF exacerbation and patient presents once again with shortness of breath that was worse last night. In the ED chest x-ray showed pulmonary edema the patient was started on diuretics. Patient does state that he feels better this time and has no other complaints, he denies any chest pain. ROS Constitutional: improved, no complaints Eyes: no complaints ENT: no complaints Respiratory: shortness of breath Cardiovascular: no complaints Gastrointestinal: no complaints Genitourinary: no complaints Musculoskeletal: no complaints Skin: no complaints Neurologic: no complaints Endocrine: no complaints Lymphatic: no complaints Psychological: nl mood/affect, no complaints Immunologic: no complaints PMH/Family/Social Past Medical History As per HPI Past Surgical History Past Surgical Hx: angioplasty, coronary bypass surgery Social History Alcohol Use: rarely Smoking Status: Former smoker Drug Use: none Exam/Review of Systems Vital Signs Vitals Vital Signs Date Time Temp Pulse Resp B/P Pulse Ox O2 Delivery O2 Flow Rate FiO2 08/16/17 15:42 98.1 104 16 105/68 99 08/16/17 15:34 2.0 08/16/17 09:00 Nasal Cannula 08/16/17 07:15 50 Exam Constitutional: alert, oriented Head: normocephalic Respiratory: clear to auscultation Cardiovascular: regular rate and rhythm Gastrointestinal: soft, No distended Musculoskeletal: nl extremities to inspection Labs Result Diagram: 08/16/17 0235 08/16/17 0235 Medications Medications Current Medications Ondansetron HCl (Zofran Inj) 4 mg Q6H PRN IV NAUSEA AND/OR VOMITING; Start at 12:00 Acetaminophen (Tylenol Tab) 650 mg Q6H PRN PO PAIN LEVEL 1-3 OR FEVER; Start at 12:00 Acetaminophen/ Hydrocodone Bitart ([place] (5/325)) 1 tab Q6H PRN PO MODERATE PAIN LEVEL 4-6 Last administered on 08/16/17t 14:43; Admin Dose 1 TAB; Start at 12:00 Morphine Sulfate (morphine) 2 mg Q4H PRN IV SEVERE PAIN LEVEL 7-10 Last administered on 08/16/17 18:54; Admin Dose 2 MG; Start 08/16/17 at 12:00 Docusate Sodium (Colace) 100 mg Q12H PRN PO CONSTIPATION; Start 08/16/17 at 12: 00 Zolpidem Tartrate (Ambien) 5 mg QHS PRN PO SLEEP; Start 08/16/17 at 12:00 Heparin Sodium (Porcine) (Heparin (5000 Units/0.5 ml)) 5,000 unit Q12 SC ; Start 08/16/17 at 21:00 Ascorbic Acid (Vitamin C) 500 mg DAILY PO ; Start 08/17/17 at 09:00 Aspirin (Halfprin) 81 mg DAILY PO ; Start 08/17/17 at 09:00 Atorvastatin Calcium (Lipitor) 80 mg DAILY@21 PO ; Start 08/16/17 at 21:00 Carvedilol (Coreg) 6.25 mg BID PO ; Start 08/16/17 at 21:00 Clopidogrel Bisulfate (plaVIX) 75 mg DAILY PO ; Start 08/17/17 at 09:00 Digoxin (Digoxin) 0.125 mg QHS PO ; Start 08/16/17 at 21:00 Ferrous Sulfate (Ferrous Sulfate (Ec)) 325 mg DAILY PO ; Start 08/17/17 at 09:00 Finasteride (Proscar) 5 mg DAILY PO ; Start 08/17/17 at 09:00 Lisinopril (Zestril) 2.5 mg DAILY PO ; Start 08/17/17 at 09:00 Pantoprazole (Protonix Tab) 40 mg DAILY PO ; Start 08/17/17 at 09:00 Potassium Chloride (Klor-Con 20) 20 meq DAILY PO ; Start 08/17/17 at 09:00 Salmeterol Xinafoate/ Fluticasone (Advair 250/50 Diskus) 1 inh BID INH ; Start 08/16/17 at 21:00 Sertraline HCl (Zoloft) 50 mg DAILY PO ; Start 08/17/17 at 09:00 Spironolactone (Aldactone) 25 mg DAILY PO ; Start 08/17/17 at 09:00 Tamsulosin HCl (Flomax) 0.4 mg HS PO ; Start 08/16/17 at 21:00 Tiotropium [place] (Spiriva) 1 inh DAILY INH ; Start 08/17/17 at 09:00 SEBASTIEN HOLT Aug 16, 2017 19:14
[2017-08-16 20:19] VITALS: BP 94/58; RESP 18
[2017-08-16 20:28] VITALS: PULSE 99
[2017-08-16] MEDS: ATORVASTATIN 80 MG TAB PO SCH (20:40)
[2017-08-16] MEDS: TAMSULOSIN (SR) 0.4 MG CAP PO SCH (20:40)
[2017-08-16] MEDS: DIGOXIN 0.125 MG TAB PO SCH (20:41)
[2017-08-16] MEDS: SALMETEROL/FLUTICASONE 250/50 INHA INH SCH (20:42)
[2017-08-16] MEDS: HEPARIN 5,000 UNIT/0.5 ML VIAL SC SCH (20:48)
[2017-08-17] VITALS (12 sets, daily range): BP systolic 97–123; BP diastolic 66–80; PULSE 83–94; RESP 15–20
[2017-08-17] MEDS: morphine 2 MG INJ IV PRN ×6 (00:25→23:25)
[2017-08-17] MEDS: BUMETANIDE 1 MG INJ IV SCH ×2 (05:22→17:57)
[2017-08-17 07:26] LABS: BASOPHIL # 0.1 10^3/ul (0.0-0.1); BASOPHILS % 0.6 % (0.0-2.0); EOSINOPHILS # 0.4 10^3/ul (0.0-0.5); HEMATOCRIT 36.2 % (42.0-52.0); HEMOGLOBIN 11.2 g/dl (14.0-18.0); LYMPHOCYTES # 1.5 10^3/ul (0.8-2.9); LYMPHOCYTES % 15.8 % (15.0-51.0); MEAN CORPUSCULAR HEMOGLOBIN 24.6 pg (29.0-33.0); MEAN CORPUSCULAR HGB CONC 30.9 g/dl (32.0-37.0); MEAN CORPUSCULAR VOLUME 79.6 fl (82.0-101.0); MEAN PLATELET VOLUME 10.3 fl (7.4-10.4); MONOCYTE # 0.5 10^3/ul (0.3-0.9); MONOCYTES % 5.3 % (0.0-11.0); PLATELET COUNT 279 10^3/UL (140-415); RED BLOOD COUNT 4.55 10^6/ul (4.70-6.10); RED CELL DISTRIBUTION WIDTH 14.4 % (11.5-14.5); WHITE BLOOD COUNT 9.5 10^3/ul (4.8-10.8)
[2017-08-17 07:50] LABS: CALCIUM 9.2 mg/dl (8.4-10.2); CREATININE 0.84 mg/dl (0.61-1.24); MAGNESIUM 1.8 mg/dl (1.7-2.5); PHOSPHORUS 4.1 mg/dl (2.5-4.9); POTASSIUM 3.5 mmol/L (3.5-5.1)
[2017-08-17] MEDS: SPIRONOLACTONE 25 MG TAB PO SCH (08:42)
[2017-08-17] MEDS: CLOPIDOGREL 75 MG TAB PO SCH (08:43)
[2017-08-17] MEDS: PANTOPRAZOLE (EC) 40 MG TAB PO SCH (08:43)
[2017-08-17] MEDS: FERROUS SULFATE (EC) 325 MG TAB PO SCH (08:43)
[2017-08-17] MEDS: ASPIRIN (EC) 81 MG TAB PO SCH (08:43)
[2017-08-17] MEDS: POTASSIUM CHLORIDE (SR) 20 MEQ TAB PO SCH (08:45)
[2017-08-17] MEDS: ASCORBIC ACID 500 MG TAB PO SCH (08:45)
[2017-08-17] MEDS: FINASTERIDE 5 MG TAB PO SCH (08:45)
[2017-08-17] MEDS: SERTRALINE 50 MG TAB PO SCH (08:46)
[2017-08-17] MEDS: LISINOPRIL 5 MG TAB PO SCH (08:47)
[2017-08-17] MEDS: TIOTROPIUM 18 MCG CAPSULE INHA DEV INH SCH (08:47)
[2017-08-17] MEDS: HEPARIN 5,000 UNIT/0.5 ML VIAL SC SCH ×2 (08:55→22:08)
[2017-08-17] MEDS: SALMETEROL/FLUTICASONE 250/50 INHA INH SCH ×2 (08:56→22:02)
--- NOTE | 2017-08-17 16:16 | PN ---
Date/Time of Note Date/Time of Note DATE: 08/17/17 TIME: 16:16 Assessment/Plan VTE Prophylaxis VTE Prophylaxis Intervention: SCD's Lines/Catheters IV Catheter Type (from [facility]): Saline Lock Assessment/Plan Assessment/Plan 66-year-old male with 1. Congestive heart failure exacerbation, patient with known ischemic cardiomyopathy ejection fraction of 20%, was admitted here at [facility] almost 2 months ago with a CHF exacerbation, he status post bypass surgery a couple of months ago. Continue Bumex and Aldactone, we will recheck his chest x-ray in a.m., replete electrolytes as needed Patient also on digoxin currently, unclear if had previous atrial fibrillation or not. 2. Severe coronary artery disease, status post coronary artery bypass surgery, ischemic cardiomyopathy with systolic dysfunction, ejection fraction of 20 percent. Continue diuresis and current cardiac medications. Patient did have episodes of NSVT, cardiology consulted for evaluation, replete electrolytes as needed. 3. Chronic obstructive pulmonary disease, tobacco user, still smoking. Continue Advair and Spiriva along with Xopenex as needed. Smoking cessation, patient has declined nicotine patch. 4. Hyperlipidemia: Continue statin therapy 5. Benign prostatic hypertrophy: Continue home medications. 6. Gastroesophageal reflux disease: Continue Protonix. 7. Major depressive disorder: Continue home medications. Prophylaxis: Protonix for GI prophylaxis, SCDs for DVT prophylaxis Disposition: Cardiology evaluation, continue diuretics. Subjective 24 Hr Interval Summary Free Text/Dictation Patient feels a little better today, he still has some mild respiratory distress with exertion, orthopnea, paroxysmal nocturnal dyspnea. However his did report that the patient is still smoking approximately half a pack a day. He will be started on Advair and Spiriva. Noted that he had 4 beats of NSVT. Exam/Review of Systems Vital Signs Vitals Vital Signs Date Time Temp Pulse Resp B/P Pulse Ox O2 Delivery O2 Flow Rate FiO2 08/17/17 16:04 83 08/17/17 15:22 97.9 20 103/75 97 08/17/17 09:10 2.0 08/17/17 08:00 Nasal Cannula 08/16/17 07:15 50 Intake and Output 08/16/17 08/16/17 08/17/17 15:00 23:00 07:00 Intake Total 700 ml 350 ml Output Total 900 ml Balance 700 ml -550 ml Exam Constitutional: alert, oriented, well developed Respiratory: diminished breath sounds (bases ) Cardiovascular: other (Patient is having runs of NSVT and also short SVT), regular rate and rhythm Gastrointestinal: non-tender, soft Musculoskeletal: nl extremities to inspection Extremities: normal pulses, other (Edema, clubbing or cyanosis) 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: 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, nl mental status, nl speech, nl strength Results Result Diagram: 08/17/17 0625 08/17/17 0625 Results 24 hrs Laboratory Tests Test 08/17/17 06:25 White Blood Count 9.5 Red Blood Count 4.55 L Hemoglobin 11.2 L Hematocrit 36.2 L Mean Corpuscular Volume 79.6 L Mean Corpuscular Hemoglobin 24.6 L Mean Corpuscular Hemoglobin Concent 30.9 L Red Cell Distribution Width 14.4 Platelet Count 279 Mean Platelet Volume 10.3 Neutrophils % 74.0 Lymphocytes % 15.8 Monocytes % 5.3 Eosinophils % 4.0 Basophils % 0.6 Nucleated Red Blood Cells % 0.0 Neutrophils # 7.0 Lymphocytes # 1.5 Monocytes # 0.5 Eosinophils # 0.4 Basophils # 0.1 Nucleated Red Blood Cells # 0.0 Sodium Level 138 Potassium Level 3.5 Chloride Level 102 Carbon Dioxide Level 27 Anion Gap 13 Blood Urea Nitrogen 21 H Creatinine 0.84 Glucose Level 147 Hemoglobin A1c 6.0 H Calcium Level 9.2 Phosphorus Level 4.1 Magnesium Level 1.8 Medications Medications Current Medications Ondansetron HCl (Zofran Inj) 4 mg Q6H PRN IV NAUSEA AND/OR VOMITING; Start at 12:00 Acetaminophen (Tylenol Tab) 650 mg Q6H PRN PO PAIN LEVEL 1-3 OR FEVER; Start at 12:00 Acetaminophen/ Hydrocodone Bitart ([place] (5/325)) 1 tab Q6H PRN PO MODERATE PAIN LEVEL 4-6 Last administered on 08/16/17 14:43; Admin Dose 1 TAB; Start at 12:00 Morphine Sulfate (morphine) 2 mg Q4H PRN IV SEVERE PAIN LEVEL 7-10 Last administered on 08/17/17 15:36; Admin Dose 2 MG; Start 08/16/17 at 12:00 Docusate Sodium (Colace) 100 mg Q12H PRN PO CONSTIPATION; Start 08/16/17 at 12: 00 Zolpidem Tartrate (Ambien) 5 mg QHS PRN PO SLEEP; Start 08/16/17 at 12:00 Heparin Sodium (Porcine) (Heparin (5000 Units/0.5 ml)) 5,000 unit Q12 SC Last administered on 08/17/17 08:55; Admin Dose 5,000 UNIT; Start 08/16/17 at 21:00 Ascorbic Acid (Vitamin C) 500 mg DAILY PO Last administered on 08/17/17 08:45 ; Admin Dose 500 MG; Start 08/17/17 at 09:00 Aspirin (Halfprin) 81 mg DAILY PO Last administered on 08/17/17 08:43; Admin Dose 81 MG; Start 08/17/17 at 09:00 Atorvastatin Calcium (Lipitor) 80 mg DAILY@21 PO Last administered on 20:40; Admin Dose 80 MG; Start 08/16/17 at 21:00 Carvedilol (Coreg) 6.25 mg BID PO Last administered on 08/17/17 08:44; Admin Dose 6.25 MG; Start 08/16/17 at 21:00 Clopidogrel Bisulfate (plaVIX) 75 mg DAILY PO Last administered on 08/17/17 08 :43; Admin Dose 75 MG; Start 08/17/17 at 09:00 Digoxin (Digoxin) 0.125 mg QHS PO Last administered on 08/16/17 20:41; Admin Dose 0.125 MG; Start 08/16/17 at 21:00 Ferrous Sulfate (Ferrous Sulfate (Ec)) 325 mg DAILY PO Last administered on 08:43; Admin Dose 325 MG; Start 08/17/17 at 09:00 Finasteride (Proscar) 5 mg DAILY PO Last administered on 08/17/17 08:45; Admin Dose 5 MG; Start 08/17/17 at 09:00 Lisinopril (Zestril) 2.5 mg DAILY PO Last administered on 08/17/17 08:47; Admin Dose 2.5 MG; Start 08/17/17 at 09:00 Pantoprazole (Protonix Tab) 40 mg DAILY PO Last administered on 08/17/17 08:43 ; Admin Dose 40 MG; Start 08/17/17 at 09:00 Potassium Chloride (Klor-Con 20) 20 meq DAILY PO Last administered on 08:45; Admin Dose 20 MEQ; Start 08/17/17 at 09:00 Salmeterol Xinafoate/ Fluticasone (Advair 250/50 Diskus) 1 inh BID INH Last administered on 08/17/17 08:56; Admin Dose 1 INH; Start 08/16/17 at 21:00 Sertraline HCl (Zoloft) 50 mg DAILY PO Last administered on 08/17/17 08:46; Admin Dose 50 MG; Start 08/17/17 at 09:00 Spironolactone (Aldactone) 25 mg DAILY PO Last administered on 08/17/17 08:42 ; Admin Dose 25 MG; Start 08/17/17 at 09:00 Tamsulosin HCl (Flomax) 0.4 mg HS PO Last administered on 08/16/17 20:40; Admin Dose 0.4 MG; Start 08/16/17 at 21:00 Tiotropium [place] (Spiriva) 1 inh DAILY INH Last administered on 08/17/17 08: 47; Admin Dose 1 INH; Start 08/17/17 at 09:00 DEE BERNABE Aug 17, 2017 16:16
[2017-08-17] MEDS ORDERED: LEVALBUTEROL (NEB) 0.63 MG/3 ML AMP HHN PRN (17:00)
[2017-08-17] MEDS ORDERED: POTASSIUM CHLORIDE (SR) 20 MEQ TAB PO STA (17:15)
--- NOTE | 2017-08-17 17:18 | CONS ---
Date/Time of Note Date/Time of Note DATE: 08/17/17 TIME: 17:08 Assessment/Plan Assessment/Plan Additional Assessment/Plan Acute decompensated systolic congestive heart failure Ischemic cardiomyopathy with ejection fraction 20% CAD with history of CABG and PCI Mitral regurgitation with history of recent bioprosthetic mitral valve replacement Nonsustained ventricular tachycardia COPD Active tobacco use Medication noncompliance -Patient with evidence of decompensated systolic congestive heart failure. Known history of severe cardiomyopathy and patient does admit to medication noncompliance and discussion with family is still an active smoker. Would continue diuretics as blood pressure and renal function permits, maintain potassium above 4.0 and magnesium above 2.0. If needed, could hold beta- cesar for a few days for more "blood pressure room" for diuresis. Continue telemetry monitoring. Consultation Date/Type/Reason Admit Date/Time Aug 16, 2017 at 06:28 Type of Consultation: cv Reason for Consultation Shortness of breath Hx of Present Illness This is a 66-year-old male past medical history of ischemic heart myopathy with ejection fraction 20%, status post recent bioprosthetic mitral valve replacement as well as CABG who presents with progressive worsening shortness of breath. Patient states since his last discharge from the hospital, he was feeling better for a few days but then had progressive worsening shortness of breath. Symptoms are worse with activity as well as lying down flat. He denies dizziness, lightheadedness, chest pain, palpitations. He does complain of cough and wheezing at times. He tells me he is not smoking but as per , patient still continues to smoke. When asked regarding medications, he tells me he has over 20 medicines and is not sure what he is taking or should be taking. Since admission, he does feel better with decreased shortness of breath. 12 point review of systems was performed with all pertinent positives and negatives mentioned above and all else is negative Eyes: no complaints ENT: no complaints Respiratory: shortness of breath Cardiovascular: no complaints Gastrointestinal: no complaints Genitourinary: no complaints Musculoskeletal: no complaints Skin: no complaints Neurologic: no complaints Lymphatic: no complaints Psychological: nl mood/affect, no complaints Immunologic: no complaints Past Medical History Medical History: congestive heart failure, coronary artery disease, hypertension Past Surgical History Bioprosthetic mitral valve replacement Past Surgical Hx: angioplasty, coronary bypass surgery Family History Significant Family History: no pertinent family hx Social History Alcohol Use: rarely Smoking Status: Current every day smoker Drug Use: none Exam/Review of Systems Vital Signs Vitals Vital Signs Date Time Temp Pulse Resp B/P Pulse Ox O2 Delivery O2 Flow Rate FiO2 08/17/17 16:04 83 08/17/17 15:22 97.9 20 103/75 97 08/17/17 09:10 2.0 08/17/17 08:00 Nasal Cannula 08/16/17 07:15 50 Intake and Output 08/16/17 08/16/17 08/17/17 15:00 23:00 07:00 Intake Total 700 ml 350 ml Output Total 900 ml Balance 700 ml -550 ml Exam No apparent distress, speaking in complete sentences Constitutional: alert, oriented Head: normocephalic Respiratory: other (Coarse breath sounds bilaterally with crackles at the right base) Cardiovascular: other (S1-S2 heard), regular rate and rhythm, systolic murmur Gastrointestinal: bowel sounds, non-tender, soft Extremities: edema Results Result Diagram: 08/17/17 0625 08/17/17 0625 Results 24 hrs Laboratory Tests Test 08/17/17 06:25 White Blood Count 9.5 Red Blood Count 4.55 L Hemoglobin 11.2 L Hematocrit 36.2 L Mean Corpuscular Volume 79.6 L Mean Corpuscular Hemoglobin 24.6 L Mean Corpuscular Hemoglobin Concent 30.9 L Red Cell Distribution Width 14.4 Platelet Count 279 Mean Platelet Volume 10.3 Neutrophils % 74.0 Lymphocytes % 15.8 Monocytes % 5.3 Eosinophils % 4.0 Basophils % 0.6 Nucleated Red Blood Cells % 0.0 Neutrophils # 7.0 Lymphocytes # 1.5 Monocytes # 0.5 Eosinophils # 0.4 Basophils # 0.1 Nucleated Red Blood Cells # 0.0 Sodium Level 138 Potassium Level 3.5 Chloride Level 102 Carbon Dioxide Level 27 Anion Gap 13 Blood Urea Nitrogen 21 H Creatinine 0.84 Glucose Level 147 Hemoglobin A1c 6.0 H Calcium Level 9.2 Phosphorus Level 4.1 Magnesium Level 1.8 Medications Medications Current Medications Ondansetron HCl (Zofran Inj) 4 mg Q6H PRN IV NAUSEA AND/OR VOMITING; Start at 12:00 Acetaminophen (Tylenol Tab) 650 mg Q6H PRN PO PAIN LEVEL 1-3 OR FEVER; Start at 12:00 Acetaminophen/ Hydrocodone Bitart ([place] (5/325)) 1 tab Q6H PRN PO MODERATE PAIN LEVEL 4-6 Last administered on 08/16/17 14:43; Admin Dose 1 TAB; Start at 12:00 Morphine Sulfate (morphine) 2 mg Q4H PRN IV SEVERE PAIN LEVEL 7-10 Last administered on 08/17/17 15:36; Admin Dose 2 MG; Start 08/16/17 at 12:00 Docusate Sodium (Colace) 100 mg Q12H PRN PO CONSTIPATION; Start 08/16/17 at 12: 00 Zolpidem Tartrate (Ambien) 5 mg QHS PRN PO SLEEP; Start 08/16/17 at 12:00 Heparin Sodium (Porcine) (Heparin (5000 Units/0.5 ml)) 5,000 unit Q12 SC Last administered on 08/17/17 08:55; Admin Dose 5,000 UNIT; Start 08/16/17 at 21:00 Ascorbic Acid (Vitamin C) 500 mg DAILY PO Last administered on 08/17/17 08:45 ; Admin Dose 500 MG; Start 08/17/17 at 09:00 Aspirin (Halfprin) 81 mg DAILY PO Last administered on 08/17/17 08:43; Admin Dose 81 MG; Start 08/17/17 at 09:00 Atorvastatin Calcium (Lipitor) 80 mg DAILY@21 PO Last administered on 20:40; Admin Dose 80 MG; Start 08/16/17 at 21:00 Carvedilol (Coreg) 6.25 mg BID PO Last administered on 08/17/17 08:44; Admin Dose 6.25 MG; Start 08/16/17 at 21:00 Clopidogrel Bisulfate (plaVIX) 75 mg DAILY PO Last administered on 08/17/17 08 :43; Admin Dose 75 MG; Start 08/17/17 at 09:00 Digoxin (Digoxin) 0.125 mg QHS PO Last administered on 08/16/17 20:41; Admin Dose 0.125 MG; Start 08/16/17 at 21:00 Ferrous Sulfate (Ferrous Sulfate (Ec)) 325 mg DAILY PO Last administered on 08:43; Admin Dose 325 MG; Start 08/17/17 at 09:00 Finasteride (Proscar) 5 mg DAILY PO Last administered on 08/17/17 08:45; Admin Dose 5 MG; Start 08/17/17 at 09:00 Lisinopril (Zestril) 2.5 mg DAILY PO Last administered on 08/17/17 08:47; Admin Dose 2.5 MG; Start 08/17/17 at 09:00 Pantoprazole (Protonix Tab) 40 mg DAILY PO Last administered on 08/17/17 08:43 ; Admin Dose 40 MG; Start 08/17/17 at 09:00 Potassium Chloride (Klor-Con 20) 20 meq DAILY PO Last administered on 08:45; Admin Dose 20 MEQ; Start 08/17/17 at 09:00 Salmeterol Xinafoate/ Fluticasone (Advair 250/50 Diskus) 1 inh BID INH Last administered on 08/17/17 08:56; Admin Dose 1 INH; Start 08/16/17 at 21:00 Sertraline HCl (Zoloft) 50 mg DAILY PO Last administered on 08/17/17 08:46; Admin Dose 50 MG; Start 08/17/17 at 09:00 Spironolactone (Aldactone) 25 mg DAILY PO Last administered on 08/17/17 08:42 ; Admin Dose 25 MG; Start 08/17/17 at 09:00 Tamsulosin HCl (Flomax) 0.4 mg HS PO Last administered on 08/16/17 20:40; Admin Dose 0.4 MG; Start 08/16/17 at 21:00 Tiotropium [place] (Spiriva) 1 inh DAILY INH Last administered on 08/17/17 08: 47; Admin Dose 1 INH; Start 08/17/17 at 09:00 Procedures Procedures ECG done yesterday with sinus tachycardia 105 bpm, anterolateral Q waves, no significant ST segment abnormalities Barney Dow DO Aug 17, 2017 17:18
[2017-08-17] MEDS ORDERED: MAGNESIUM SULFATE 2 GM/50 ML 50 ML IVPB ONE (17:30)
[2017-08-17] MEDS: HYDROCODONE/APAP (5/325) TAB PO PRN (21:59)
[2017-08-17] MEDS: TAMSULOSIN (SR) 0.4 MG CAP PO SCH (21:59)
[2017-08-17] MEDS: ATORVASTATIN 80 MG TAB PO SCH (21:59)
[2017-08-17] MEDS: DIGOXIN 0.125 MG TAB PO SCH (22:00)
[2017-08-18] VITALS (12 sets, daily range): BP systolic 103–115; BP diastolic 56–69; PULSE 83–93; RESP 15–19
[2017-08-18] MEDS: morphine 2 MG INJ IV PRN ×3 (03:40→23:36)
[2017-08-18] MEDS: HYDROCODONE/APAP (5/325) TAB PO PRN ×2 (06:53→15:41)
[2017-08-18] MEDS: BUMETANIDE 1 MG INJ IV SCH ×2 (06:54→18:10)
[2017-08-18 08:07] LABS: MAGNESIUM 2.2 mg/dl (1.7-2.5); PHOSPHORUS 4.3 mg/dl (2.5-4.9)
[2017-08-18 08:12] LABS: ALBUMIN 4.1 g/dl (3.3-4.9); ALBUMIN/GLOBULIN RATIO 1.28; BILIRUBIN,INDIRECT 0.5 mg/dl (0-1.1); BILIRUBIN,TOTAL 0.5 mg/dl (0.2-1.3); CREATININE 0.89 mg/dl (0.61-1.24); POTASSIUM 4.3 mmol/L (3.5-5.1); TOTAL PROTEIN 7.3 g/dl (6.1-8.1)
[2017-08-18] MEDS: PANTOPRAZOLE (EC) 40 MG TAB PO SCH (08:54)
[2017-08-18] MEDS: FINASTERIDE 5 MG TAB PO SCH (08:54)
[2017-08-18] MEDS: FERROUS SULFATE (EC) 325 MG TAB PO SCH (08:54)
[2017-08-18] MEDS: SPIRONOLACTONE 25 MG TAB PO SCH (08:55)
[2017-08-18] MEDS: ASCORBIC ACID 500 MG TAB PO SCH (08:55)
[2017-08-18] MEDS: POTASSIUM CHLORIDE (SR) 20 MEQ TAB PO SCH (08:55)
[2017-08-18] MEDS: ASPIRIN (EC) 81 MG TAB PO SCH (08:55)
[2017-08-18] MEDS: TIOTROPIUM 18 MCG CAPSULE INHA DEV INH SCH (08:56)
[2017-08-18] MEDS: CLOPIDOGREL 75 MG TAB PO SCH (08:56)
[2017-08-18] MEDS: LISINOPRIL 5 MG TAB PO SCH (08:57)
[2017-08-18] MEDS: SERTRALINE 50 MG TAB PO SCH (08:58)
[2017-08-18] MEDS: HEPARIN 5,000 UNIT/0.5 ML VIAL SC SCH ×2 (08:59→21:14)
[2017-08-18] MEDS: SALMETEROL/FLUTICASONE 250/50 INHA INH SCH ×2 (09:00→20:51)
--- NOTE | 2017-08-18 12:02 | PN ---
Date/Time of Note Date/Time of Note DATE: 08/18/17 TIME: 11:53 Assessment/Plan VTE Prophylaxis VTE Prophylaxis Intervention: heparin Lines/Catheters IV [facility] Type (from [facility] Saline Lock Urinary Cath still in place: No Assessment/Plan Assessment/Plan 66-year-old male with 1. Congestive heart failure exacerbation, patient with known ischemic cardiomyopathy ejection fraction of 20%, was admitted here at [facility] almost 2 months ago with a CHF exacerbation, he status post bypass surgery a couple of months ago. On Bumex and Aldactone, CXR pending this AM Renal function stable and much less orthopnea Patient also on digoxin currently, unclear if had previous atrial fibrillation or not. 2. Severe coronary artery disease, status post coronary artery bypass surgery, ischemic cardiomyopathy with systolic dysfunction, ejection fraction of 20 percent. Continue diuresis and current cardiac medications. Patient did have episodes of NSVT, cardiology consulted for evaluation, replete electrolytes as needed. Appreciate Dr Dow's recommendations 3. Chronic obstructive pulmonary disease, tobacco user, still smoking. Continue Advair and Spiriva along with Xopenex as needed. Smoking cessation, patient has declined nicotine patch. 4. Hyperlipidemia: Continue statin therapy 5. Benign prostatic hypertrophy: Continue home medications. 6. Gastroesophageal reflux disease: Continue Protonix. 7. Major depressive disorder: Continue home medications. Prophylaxis: Protonix for GI prophylaxis, SCDs for DVT prophylaxis Disposition: Follow up CXR and cardio recs for d/c planning. Subjective 24 Hr Interval Summary Free Text/Dictation Patient feels better and no PND last night, some residual orthopnea CXR pending D/c planning within 24 hrs hopefully Exam/Review of Systems Vital Signs Vitals Vital Signs Date Time Temp Pulse Resp B/P Pulse Ox O2 Delivery O2 Flow Rate FiO2 08/18/17 11:08 97.6 94 18 114/56 97 08/18/17 02:23 2.0 08/17/17 21:52 Nasal Cannula 28 Intake and Output 08/17/17 08/17/17 08/18/17 15:00 23:00 07:00 Intake Total 1150 ml 250 ml Output Total 1150 ml Balance 1150 ml -900 ml Exam Constitutional: alert, oriented, well developed Respiratory: diminished breath sounds (bases bilaterally ), normal air movement , other (on 3 L NC) Cardiovascular: nl pulses, regular rate and rhythm Gastrointestinal: non-tender, soft Musculoskeletal: nl extremities to inspection Extremities: normal pulses, other (no edema, clubbing or cyanosis ) 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, nl mental status, nl speech, nl strength Results Result Diagram: 08/17/17 0625 08/18/17 0642 Results 24 hrs Laboratory Tests Test 08/18/17 06:42 Sodium Level 138 Potassium Level 4.3 Chloride Level 101 Carbon Dioxide Level 29 Anion Gap 12 Blood Urea Nitrogen 22 H Creatinine 0.89 Glucose Level 124 Calcium Level 9.0 Phosphorus Level 4.3 Magnesium Level 2.2 Total Bilirubin 0.5 Direct Bilirubin 0.00 Indirect Bilirubin 0.5 Aspartate Amino Transf (AST/SGOT) 16 Alanine Aminotransferase (ALT/SGPT) 24 Alkaline Phosphatase 55 Total Protein 7.3 Albumin 4.1 Globulin 3.20 Albumin/Globulin Ratio 1.28 Medications Medications Current Medications Ondansetron HCl (Zofran Inj) 4 mg Q6H PRN IV NAUSEA AND/OR VOMITING; Start at 12:00 Acetaminophen (Tylenol Tab) 650 mg Q6H PRN PO PAIN LEVEL 1-3 OR FEVER; Start at 12:00 Acetaminophen/ Hydrocodone Bitart ([place] (5/325)) 1 tab Q6H PRN PO MODERATE PAIN LEVEL 4-6 Last administered on 08/18/17 06:53; Admin Dose 1 TAB; Start at 12:00 Morphine Sulfate (morphine) 2 mg Q4H PRN IV SEVERE PAIN LEVEL 7-10 Last administered on 08/18/17 11:29; Admin Dose 2 MG; Start 08/16/17 at 12:00 Docusate Sodium (Colace) 100 mg Q12H PRN PO CONSTIPATION; Start 08/16/17 at 12: 00 Zolpidem Tartrate (Ambien) 5 mg QHS PRN PO SLEEP; Start 08/16/17 at 12:00 Heparin Sodium (Porcine) (Heparin (5000 Units/0.5 ml)) 5,000 unit Q12 SC Last administered on 08/18/17 08:59; Admin Dose 5,000 UNIT; Start 08/16/17 at 21:00 Ascorbic Acid (Vitamin C) 500 mg DAILY PO Last administered on 08/18/17 08:55 ; Admin Dose 500 MG; Start 08/17/17 at 09:00 Aspirin (Halfprin) 81 mg DAILY PO Last administered on 08/18/17 08:55; Admin Dose 81 MG; Start 08/17/17 at 09:00 Atorvastatin Calcium (Lipitor) 80 mg DAILY@21 PO Last administered on 21:59; Admin Dose 80 MG; Start 08/16/17 at 21:00 Carvedilol (Coreg) 6.25 mg BID PO Last administered on 08/18/17 08:57; Admin Dose 6.25 MG; Start 08/16/17 at 21:00 Clopidogrel Bisulfate (plaVIX) 75 mg DAILY PO Last administered on 08/18/17 08 :56; Admin Dose 75 MG; Start 08/17/17 at 09:00 Digoxin (Digoxin) 0.125 mg QHS PO Last administered on 08/17/17 22:00; Admin Dose 0.125 MG; Start 08/16/17 at 21:00 Ferrous Sulfate (Ferrous Sulfate (Ec)) 325 mg DAILY PO Last administered on 08:54; Admin Dose 325 MG; Start 08/17/17 at 09:00 Finasteride (Proscar) 5 mg DAILY PO Last administered on 08/18/17 08:54; Admin Dose 5 MG; Start 08/17/17 at 09:00 Lisinopril (Zestril) 2.5 mg DAILY PO Last administered on 08/18/17 08:57; Admin Dose 2.5 MG; Start 08/17/17 at 09:00 Pantoprazole (Protonix Tab) 40 mg DAILY PO Last administered on 08/18/17 08:54 ; Admin Dose 40 MG; Start 08/17/17 at 09:00 Potassium Chloride (Klor-Con 20) 20 meq DAILY PO Last administered on 08:55; Admin Dose 20 MEQ; Start 08/17/17 at 09:00 Salmeterol Xinafoate/ Fluticasone (Advair 250/50 Diskus) 1 inh BID INH Last administered on 08/18/17 09:00; Admin Dose 1 INH; Start 08/16/17 at 21:00 Sertraline HCl (Zoloft) 50 mg DAILY PO Last administered on 08/18/17 08:58; Admin Dose 50 MG; Start 08/17/17 at 09:00 Spironolactone (Aldactone) 25 mg DAILY PO Last administered on 08/18/17 08:55 ; Admin Dose 25 MG; Start 08/17/17 at 09:00 Tamsulosin HCl (Flomax) 0.4 mg HS PO Last administered on 08/17/17 21:59; Admin Dose 0.4 MG; Start 08/16/17 at 21:00 Tiotropium [place] (Spiriva) 1 inh DAILY INH Last administered on 08/18/17 08: 56; Admin Dose 1 INH; Start 08/17/17 at 09:00 DEE BERNABE Aug 18, 2017 12:02
--- NOTE | 2017-08-18 16:15 | CONS ---
Date/Time of Note Date/Time of Note DATE: 08/18/17 TIME: 16:13 Assessment/Plan Assessment/Plan Additional Assessment/Plan Acute decompensated systolic congestive heart failure Ischemic cardiomyopathy with ejection fraction 20% CAD with history of CABG and PCI Mitral regurgitation with history of recent bioprosthetic mitral valve replacement Nonsustained ventricular tachycardia COPD Active tobacco use Medication noncompliance -Patient with overall improvement in volume status and is feeling much better. We will transition diuretics to p.o. the next 24 hours. Blood pressure trend remains stable, continue Coreg, increase CLAUDY inhibitor as blood pressure renal function permits, maintain potassium above 4.0 and magnesium above 2.0. Extensive discussion had with patient and at bedside regarding importance of medication compliance and smoking cessation. Consultation Date/Type/Reason Admit Date/Time Aug 16, 2017 at 06:28 Initial Consult Date Type of Consultation: cv 24 HR Interval Summary Free Text/Dictation Patient seen and examined. Shortness of breath has improved compared to yesterday. Denies chest pain, dizziness or palpitations Exam/Review of Systems Vital Signs Vitals Vital Signs Date Time Temp Pulse Resp B/P Pulse Ox O2 Delivery O2 Flow Rate FiO2 08/18/17 16:05 96 2.0 08/18/17 16:00 91 08/18/17 11:08 97.6 18 114/56 08/18/17 08:50 Nasal Cannula 08/17/17 21:52 28 Intake and Output 08/17/17 08/17/17 08/18/17 15:00 23:00 07:00 Intake Total 1150 ml 250 ml Output Total 1150 ml Balance 1150 ml -900 ml Exam No apparent distress Constitutional: alert, oriented Head: normocephalic Respiratory: other (Coarse breath sounds bilaterally, no wheezing) Cardiovascular: other (S1-S2 heard), regular rate and rhythm Gastrointestinal: bowel sounds, non-tender, soft Extremities: edema Results Result Diagram: 08/17/17 0625 08/18/17 0642 Results 24 hrs Laboratory Tests Test 08/18/17 06:42 Sodium Level 138 Potassium Level 4.3 Chloride Level 101 Carbon Dioxide Level 29 Anion Gap 12 Blood Urea Nitrogen 22 H Creatinine 0.89 Glucose Level 124 Calcium Level 9.0 Phosphorus Level 4.3 Magnesium Level 2.2 Total Bilirubin 0.5 Direct Bilirubin 0.00 Indirect Bilirubin 0.5 Aspartate Amino Transf (AST/SGOT) 16 Alanine Aminotransferase (ALT/SGPT) 24 Alkaline Phosphatase 55 Total Protein 7.3 Albumin 4.1 Globulin 3.20 Albumin/Globulin Ratio 1.28 Medications Medications Current Medications Ondansetron HCl (Zofran Inj) 4 mg Q6H PRN IV NAUSEA AND/OR VOMITING; Start at 12:00 Acetaminophen (Tylenol Tab) 650 mg Q6H PRN PO PAIN LEVEL 1-3 OR FEVER; Start at 12:00 Acetaminophen/ Hydrocodone Bitart ([place] (5/325)) 1 tab Q6H PRN PO MODERATE PAIN LEVEL 4-6 Last administered on 08/18/17 15:41; Admin Dose 1 TAB; Start at 12:00 Morphine Sulfate (morphine) 2 mg Q4H PRN IV SEVERE PAIN LEVEL 7-10 Last administered on 08/18/17 11:29; Admin Dose 2 MG; Start 08/16/17 at 12:00 Docusate Sodium (Colace) 100 mg Q12H PRN PO CONSTIPATION; Start 08/16/17 at 12: 00 Zolpidem Tartrate (Ambien) 5 mg QHS PRN PO SLEEP; Start 08/16/17 at 12:00 Heparin Sodium (Porcine) (Heparin (5000 Units/0.5 ml)) 5,000 unit Q12 SC Last administered on 08/18/17 08:59; Admin Dose 5,000 UNIT; Start 08/16/17 at 21:00 Ascorbic Acid (Vitamin C) 500 mg DAILY PO Last administered on 08/18/17 08:55 ; Admin Dose 500 MG; Start 08/17/17 at 09:00 Aspirin (Halfprin) 81 mg DAILY PO Last administered on 08/18/17 08:55; Admin Dose 81 MG; Start 08/17/17 at 09:00 Atorvastatin Calcium (Lipitor) 80 mg DAILY@21 PO Last administered on 21:59; Admin Dose 80 MG; Start 08/16/17 at 21:00 Carvedilol (Coreg) 6.25 mg BID PO Last administered on 08/18/17 08:57; Admin Dose 6.25 MG; Start 08/16/17 at 21:00 Clopidogrel Bisulfate (plaVIX) 75 mg DAILY PO Last administered on 08/18/17 08 :56; Admin Dose 75 MG; Start 08/17/17 at 09:00 Digoxin (Digoxin) 0.125 mg QHS PO Last administered on 08/17/17 22:00; Admin Dose 0.125 MG; Start 08/16/17 at 21:00 Ferrous Sulfate (Ferrous Sulfate (Ec)) 325 mg DAILY PO Last administered on 08:54; Admin Dose 325 MG; Start 08/17/17 at 09:00 Finasteride (Proscar) 5 mg DAILY PO Last administered on 08/18/17 08:54; Admin Dose 5 MG; Start 08/17/17 at 09:00 Lisinopril (Zestril) 2.5 mg DAILY PO Last administered on 08/18/17 08:57; Admin Dose 2.5 MG; Start 08/17/17 at 09:00 Pantoprazole (Protonix Tab) 40 mg DAILY PO Last administered on 08/18/17 08:54 ; Admin Dose 40 MG; Start 08/17/17 at 09:00 Potassium Chloride (Klor-Con 20) 20 meq DAILY PO Last administered on 08:55; Admin Dose 20 MEQ; Start 08/17/17 at 09:00 Salmeterol Xinafoate/ Fluticasone (Advair 250/50 Diskus) 1 inh BID INH Last administered on 08/18/17 09:00; Admin Dose 1 INH; Start 08/16/17 at 21:00 Sertraline HCl (Zoloft) 50 mg DAILY PO Last administered on 08/18/17 08:58; Admin Dose 50 MG; Start 08/17/17 at 09:00 Spironolactone (Aldactone) 25 mg DAILY PO Last administered on 08/18/17 08:55 ; Admin Dose 25 MG; Start 08/17/17 at 09:00 Tamsulosin HCl (Flomax) 0.4 mg HS PO Last administered on 08/17/17 21:59; Admin Dose 0.4 MG; Start 08/16/17 at 21:00 Tiotropium [place] (Spiriva) 1 inh DAILY INH Last administered on 08/18/17 08: 56; Admin Dose 1 INH; Start 08/17/17 at 09:00 Barney Dow DO Aug 18, 2017 16:15
--- NOTE | 2017-08-18 16:34 | RADRPT ---
PROCEDURE: XR Chest. CLINICAL INDICATION: Pulmonary edema TECHNIQUE: PA and lateral views of the chest were obtained COMPARISON: 07/04/2017 FINDINGS: The heart is moderately enlarged. The pulmonary vasculature are prominent. The aorta demonstrates a therosclerotic calcifications. Bilateral interstitial opacities are seen without focal consolidati on. There is no pleural effusion or pneumothorax. Degenerative changes are seen within the thoraci c spine. There is no acute osseous abnormality. IMPRESSION: Moderate cardiomegaly. Pulmonary vascular congestion and edema is present without consolidation, effusion, or pneumothorax. Severity of congestion appears diminished from prior exam. RPTAT: AA .Faizan Salinas MD, MD Date Time Electronically viewed and signed by .Faizan Salinas MD, on 08/18/2017 16:34 .Vasiliy/
[2017-08-18] MEDS: TAMSULOSIN (SR) 0.4 MG CAP PO SCH (20:52)
[2017-08-18] MEDS: ATORVASTATIN 80 MG TAB PO SCH (20:52)
[2017-08-18] MEDS: DIGOXIN 0.125 MG TAB PO SCH (20:53)
[2017-08-19] VITALS (9 sets, daily range): BP systolic 97–109; BP diastolic 59–75; PULSE 85–91; RESP 17–19
[2017-08-19] MEDS: HYDROCODONE/APAP (5/325) TAB PO PRN ×2 (04:21→16:27)
[2017-08-19] MEDS: BUMETANIDE 1 MG TAB PO SCH ×2 (06:09→18:00)
[2017-08-19 07:54] LABS: CALCIUM 9.4 mg/dl (8.4-10.2); CREATININE 0.94 mg/dl (0.61-1.24); POTASSIUM 4.4 mmol/L (3.5-5.1)
[2017-08-19 07:55] LABS: PHOSPHORUS 4.5 mg/dl (2.5-4.9)
[2017-08-19] MEDS: TIOTROPIUM 18 MCG CAPSULE INHA DEV INH SCH ×3 (09:00→13:49)
[2017-08-19] MEDS: SPIRONOLACTONE 25 MG TAB PO SCH (09:01)
[2017-08-19] MEDS: SALMETEROL/FLUTICASONE 250/50 INHA INH SCH (09:01)
[2017-08-19] MEDS: ASPIRIN (EC) 81 MG TAB PO SCH (09:01)
[2017-08-19] MEDS: POTASSIUM CHLORIDE (SR) 20 MEQ TAB PO SCH (09:01)
[2017-08-19] MEDS: SERTRALINE 50 MG TAB PO SCH (09:02)
[2017-08-19] MEDS: FINASTERIDE 5 MG TAB PO SCH (09:02)
[2017-08-19] MEDS: ASCORBIC ACID 500 MG TAB PO SCH (09:02)
[2017-08-19] MEDS: CLOPIDOGREL 75 MG TAB PO SCH (09:02)
[2017-08-19] MEDS: PANTOPRAZOLE (EC) 40 MG TAB PO SCH (09:02)
[2017-08-19] MEDS: FERROUS SULFATE (EC) 325 MG TAB PO SCH (09:03)
[2017-08-19] MEDS: LISINOPRIL 5 MG TAB PO SCH (09:03)
[2017-08-19] MEDS: HEPARIN 5,000 UNIT/0.5 ML VIAL SC SCH (09:15)
--- NOTE | 2017-08-19 10:29 | CONS ---
Date/Time of Note Date/Time of Note DATE: 08/19/17 TIME: 10:27 Assessment/Plan Assessment/Plan Additional Assessment/Plan Acute decompensated systolic congestive heart failure Ischemic cardiomyopathy with ejection fraction 20% CAD with history of CABG and PCI Mitral regurgitation with history of recent bioprosthetic mitral valve replacement Nonsustained ventricular tachycardia COPD Active tobacco use Medication noncompliance -Patient with overall improvement in volume status and is feeling much better. Would continue Bumex and transition to daily upon discharge. Blood pressure trend remains stable, continue Coreg, increase CLAUDY inhibitor as blood pressure renal function permits, maintain potassium above 4.0 and magnesium above 2.0. Counseled again regarding smoking cessation and compliance with medications. DC planning Consultation Date/Type/Reason Admit Date/Time Aug 16, 2017 at 06:28 Type of Consultation: cv 24 HR Interval Summary Free Text/Dictation Shortness of breath continues to improve, less symptoms with walking. No chest pain no dizziness Exam/Review of Systems Vital Signs Vitals Vital Signs Date Time Temp Pulse Resp B/P Pulse Ox O2 Delivery O2 Flow Rate FiO2 08/19/17 08:14 87 08/19/17 08:02 98.1 19 109/75 99 08/19/17 07:46 2.0 08/18/17 19:32 Nasal Cannula 08/17/17 21:52 28 Intake and Output 08/18/17 08/18/17 08/19/17 15:00 23:00 07:00 Intake Total 800 ml 500 ml Output Total 400 ml 700 ml Balance 400 ml -200 ml Exam No apparent distress Constitutional: alert, oriented Head: normocephalic Respiratory: other (Coarse breath sounds bilaterally, no wheezing) Cardiovascular: other (S1-S2 heard), regular rate and rhythm Gastrointestinal: bowel sounds, non-tender, soft Extremities: edema (Trace) Results Result Diagram: 08/17/17 0625 08/19/17 0653 Results 24 hrs Laboratory Tests Test 08/19/17 06:53 08/19/17 06:54 Sodium Level 135 Potassium Level 4.4 Chloride Level 98 Carbon Dioxide Level 30 Anion Gap 11 Blood Urea Nitrogen 24 H Creatinine 0.94 Glucose Level 127 Calcium Level 9.4 Phosphorus Level 4.5 Magnesium Level 2.0 Medications Medications Current Medications Ondansetron HCl (Zofran Inj) 4 mg Q6H PRN IV NAUSEA AND/OR VOMITING; Start at 12:00 Acetaminophen (Tylenol Tab) 650 mg Q6H PRN PO PAIN LEVEL 1-3 OR FEVER; Start at 12:00 Acetaminophen/ Hydrocodone Bitart ([place] (5/325)) 1 tab Q6H PRN PO MODERATE PAIN LEVEL 4-6 Last administered on 08/19/17 04:21; Admin Dose 1 TAB; Start at 12:00 Morphine Sulfate (morphine) 2 mg Q4H PRN IV SEVERE PAIN LEVEL 7-10 Last administered on 08/18/17 23:36; Admin Dose 2 MG; Start 08/16/17 at 12:00 Docusate Sodium (Colace) 100 mg Q12H PRN PO CONSTIPATION; Start 08/16/17 at 12: 00 Zolpidem Tartrate (Ambien) 5 mg QHS PRN PO SLEEP; Start 08/16/17 at 12:00 Heparin Sodium (Porcine) (Heparin (5000 Units/0.5 ml)) 5,000 unit Q12 SC Last administered on 08/19/17 09:15; Admin Dose 5,000 UNIT; Start 08/16/17 at 21:00 Ascorbic Acid (Vitamin C) 500 mg DAILY PO Last administered on 08/19/17 09:02 ; Admin Dose 500 MG; Start 08/17/17 at 09:00 Aspirin (Halfprin) 81 mg DAILY PO Last administered on 08/19/17 09:01; Admin Dose 81 MG; Start 08/17/17 at 09:00 Atorvastatin Calcium (Lipitor) 80 mg DAILY@21 PO Last administered on 20:52; Admin Dose 80 MG; Start 08/16/17 at 21:00 Carvedilol (Coreg) 6.25 mg BID PO Last administered on 08/19/17 09:02; Admin Dose 6.25 MG; Start 08/16/17 at 21:00 Clopidogrel Bisulfate (plaVIX) 75 mg DAILY PO Last administered on 08/19/17 09 :02; Admin Dose 75 MG; Start 08/17/17 at 09:00 Digoxin (Digoxin) 0.125 mg QHS PO Last administered on 08/18/17 20:53; Admin Dose 0.125 MG; Start 08/16/17 at 21:00 Ferrous Sulfate (Ferrous Sulfate (Ec)) 325 mg DAILY PO Last administered on 09:03; Admin Dose 325 MG; Start 08/17/17 at 09:00 Finasteride (Proscar) 5 mg DAILY PO Last administered on 08/19/17 09:02; Admin Dose 5 MG; Start 08/17/17 at 09:00 Lisinopril (Zestril) 2.5 mg DAILY PO Last administered on 08/19/17 09:03; Admin Dose 2.5 MG; Start 08/17/17 at 09:00 Pantoprazole (Protonix Tab) 40 mg DAILY PO Last administered on 08/19/17 09:02 ; Admin Dose 40 MG; Start 08/17/17 at 09:00 Potassium Chloride (Klor-Con 20) 20 meq DAILY PO Last administered on 09:01; Admin Dose 20 MEQ; Start 08/17/17 at 09:00 Salmeterol Xinafoate/ Fluticasone (Advair 250/50 Diskus) 1 inh BID INH Last administered on 08/19/17 09:01; Admin Dose 1 INH; Start 08/16/17 at 21:00 Sertraline HCl (Zoloft) 50 mg DAILY PO Last administered on 08/19/17 09:02; Admin Dose 50 MG; Start 08/17/17 at 09:00 Spironolactone (Aldactone) 25 mg DAILY PO Last administered on 08/19/17 09:01 ; Admin Dose 25 MG; Start 08/17/17 at 09:00 Tamsulosin HCl (Flomax) 0.4 mg HS PO Last administered on 08/18/17 20:52; Admin Dose 0.4 MG; Start 08/16/17 at 21:00 Tiotropium [place] (Spiriva) 1 inh DAILY INH Last administered on 08/18/17 08: 56; Admin Dose 1 INH; Start 08/17/17 at 09:00 Barney Dow DO Aug 19, 2017 10:28
[2017-08-19] MEDS: morphine 2 MG INJ IV PRN (11:43)
--- NOTE | 2017-08-19 16:46 | PDOCDIS ---
Discharge Instructions CONDITION Patient Condition: Good HOME CARE INSTRUCTIONS: Diet Instructions: Low Fat /Cholesterol ACTIVITY: Activity Restrictions: Slowly Increase Activity FOLLOW UP/APPOINTMENTS Follow-up Plan Follow-up with Pricing Consultant in 1-3 days. Follow-up with PCP in 5 days. SCHOOL/WORK RELEASE May return to School/Work with: No Restrictions MYKE WOLF MD Aug 19, 2017 16:46
--- NOTE | 2017-08-19 22:39 | DS ---
DATE OF ADMISSION: 08/16/2017 DATE OF DISCHARGE: 08/19/2017 FINAL DIAGNOSES: 1. Congestive heart failure exacerbation: Improved. The patient is to continue on Bumex 1 mg once daily with potassium replacement. 2. Ischemic cardiomyopathy, with ejection fraction 20 percent: Improved. The patient is to continue on Aldactone, angiotensin- converting enzyme inhibitor, Coreg and Bumex to manage his congestive heart failure and optimize his heart function. 3. Severe coronary artery disease, status post coronary artery bypass graft and ischemic cardiomyopathy, with systolic dysfunction: Stable. The patient did have episodes of nonsustained V-tach; however, recommendations were made to replete his electrolytes, and this was managed well throughout his hospitalization. 4. Chronic obstructive pulmonary disease: Stable. The patient is an ongoing tobacco user. We will continue on Advair and Spiriva, as well as Xopenex as needed. 5. Tobacco abuse: Needs improvement: The patient has been counseled extensively on quitting smoking, and he stated he will try. 6. Hyperlipidemia: Stable. To continue atorvastatin 80 mg once daily. 7. Benign prostatic hypertrophy: Stable. Continue Flomax as an outpatient. 8. Gastroesophageal reflux disease: Improved. Continue Protonix as an outpatient. 9. Major depressive disorder: Stable. The patient is to continue on Zoloft as an outpatient. HOSPITAL COURSE: The patient is a pleasant 66-year-old gentleman who was admitted by my associate, Dr. Dixie Hernández, on 08/16/2017. Apparently, the patient has known coronary artery disease, as well as multiple other hospitalizations with CHF exacerbation. He has been noncompliant as an outpatient with his medications. He was significantly short of breath on the night before admission and was admitted to the hospital for further evaluation and treatment. Initially, the patient was placed on Lasix; however did not diurese well and with a consultation with Dr. Dow, he was switched over to Bumex. The patient diuresed well on Bumex, and the doses were ultimately titrated, and the patient was placed on 1 mg once daily at the time of discharge. Overall, the patient fared well. He was ambulating without difficulty and maintained his good oxygen saturation on 2 L nasal cannula. I evaluated the patient on the day of discharge, and he was ambulating 400 feet without any difficulty. He was tolerating a cardiac diet and was eager to go home. I explained the importance of quitting all tobacco use, as well as taking his medications as prescribed. I reiterated the fact that all of his hospitalizations are potentially preventable as long as he continues taking his medications as prescribed by his physicians and attending regular outpatient visits with his primary care physician and micromatic hone operator. He stated he would comply. DISCHARGE CONDITION: Stable. DISPOSITION: Discharged to home. DISCHARGE MEDICATIONS: 1. Augmentin 875 mg 1 p.o. twice daily for 5 days. 2. Ascorbic acid 500 mg once daily. 3. Aspirin 81 mg once daily. 4. Atorvastatin 80 mg once daily at night at bedtime. 5. Bumex 1 mg p.o. daily. 6. Coreg 6.25 mg twice daily. 7. Plavix 75 mg once daily. 8. Digoxin 0.125 mg once daily. 9. Ferrous sulfide 325 mg twice daily. 10. Finasteride 5 mg once daily. 11. Lisinopril 5 mg once daily. 12. Protonix 40 mg once daily. 13. Potassium chloride 20 mg once daily. 14. Advair 250/50 one inhalation twice daily. 15. Sertraline 50 mg once daily. 16. Aldactone 25 mg once daily. 17. Flomax 0.4 mg once daily at bedtime. 18. Spiriva 18 mcg 1 inhalation daily. FOLLOWUP VISITS: The patient is to follow with his primary care physician in 1 week, as well as his micromatic hone operator in approximately 4 days. Dictated By: Myles Reilly MD /lorraine/jessica /Document#: [id number]
== END 2017-08-19 20:00 | disposition home health service (06) | DRG 292 ==
LOC: E/R 00:40 → TEL 06:28 → UNDOADMIN 06:32 → TEL 10:27
PROVIDERS: ADMIT Internal Medicine; ATTEND Internal Medicine
DX: I11.0 Hypertensive heart disease with heart failure (principal); I47.2 Ventricular tachycardia; I42.9 Cardiomyopathy, unspecified; J44.9 Chronic obstructive pulmonary disease, unspecified; I50.23 Acute on chronic systolic (congestive) heart failure; N40.0 Benign prostatic hyperplasia without lower urinary tract symptoms; K21.9 Gastro-esophageal reflux disease without esophagitis; I25.10 Atherosclerotic heart disease of native coronary artery without angina pectoris; F32.9 Major depressive disorder, single episode, unspecified; I25.5 Ischemic cardiomyopathy; F17.210 Nicotine dependence, cigarettes, uncomplicated; E78.5 Hyperlipidemia, unspecified; Z79.82 Long term (current) use of aspirin; Z79.02 Long term (current) use of antithrombotics/antiplatelets; Z95.2 Presence of prosthetic heart valve; Z91.14 Patient's other noncompliance with medication regimen; Z98.61 Coronary angioplasty status; Z95.1 Presence of aortocoronary bypass graft
CPT/HCPCS: 36415; 36600; 71010; 71020; 80048; 80053; 82550; 82553; 82803; 83036; 83735; 83880; 84100; 84484; 85025; 93005; 94660; 94664; 96374; 96375; J1644; J1940; J2060; J2270; J3475

== ENCOUNTER 2017-09-12 01:13 | Inpatient (IN) | payer OTHER ==
[2017-09-12] VITALS (10 sets, daily range): BP systolic 98–115; BP diastolic 66–77; PULSE 90–98; RESP 18; Ht 172.7 cm; Wt 80.5 kg
[~2017-09-12] VITALS: Ht 172.7 cm; Wt 80.5 kg
--- NOTE | 2017-09-12 01:27 | ERA ---
ER Documentation Chief Complaint Date/Time DATE: 09/12/17 TIME: 01:26 Chief Complaint SOB HPI The patient is a 66-year-old male, presenting to the ER because of cough for the last 3 day, associated with shortness of breath. He had similar symptoms previously, denies fever, chills, neck pain, chest pain, abdominal pain, vomiting, dysuria, diarrhea. He still smokes, denies drinking, use 2 L nasal cannula as needed at home Past Medical history: Hypertension, BPH, sleep edema, history of CHF, ischemic cardiomyopathy with EF of 20%, CAD, COPD, GERD, depression, anxiety Past Surgical history: CABG, bilateral cataract, appendectomy ROS All systems reviewed and are negative except as per history of present illness. Medications Home Meds Active Scripts Lisinopril* (Lisinopril*) 2.5 Mg Tablet, 2.5 MG PO DAILY, #30 TAB 3 Refills Prov:Kajal BERNABEAnivalSHONCARLOS EDUARDO 07/08/17 Digoxin* (Digitek*) 125 Mcg Tablet, 0.125 MG PO QHS for 30 Days, TAB 3 Refills Prov:Kajal BERNABEJONI 07/08/17 Carvedilol* (Carvedilol*) 6.25 Mg Tablet, 6.25 MG PO BID for 30 Days, TAB 3 Refills Prov:Kajal BERNABEAnivalSHONCARLOS EDUARDO 07/08/17 Aspirin* (Aspirin* EC) 81 Mg Tablet.dr, 81 MG PO DAILY for 30 Days, 3 Refills Prov:Kajal BERNABEJONI 07/08/17 Potassium Chloride* (Potassium Chloride*) 20 Meq Tablet.er, 20 MEQ PO DAILY for 30 Days, TAB.SA Prov:Kajal BERNABEAnivalSHONCARLOS EDUARDO 07/08/17 Bumetanide* (Bumetanide*) 1 Mg Tablet, 1 MG PO BID DIURETICS for 30 Days, TAB 3 Refills Prov:Kajal BERNABEAnivalSHONCARLOS EDUARDO 07/08/17 Salmeterol Xinaf/Fluticasone* (Advair*) 250-50 Diskus Inhaler, 1 INH INH BID, # 1 INHALER 3 Refills Prov:Kajal BERNABEAnivalSHONCARLOS EDUARDO 07/08/17 Tiotropium [place]* (Spiriva*) 18 Mcg Cap.w.dev, 1 INH INH DAILY, #1 INHALER 3 Refills Prov:DEE BERNABE 07/08/17 Amoxicillin/Potassium Clav (Amox-Clav 875-125 mg Tablet) 875-125 mg Tab, 875 MG PO BID for 5 Days, TAB Prov:DEE BERNABE 07/08/17 Spironolactone* (Aldactone*) 25 Mg Tablet, 25 MG PO DAILY for 30 Days, TAB 3 Refills Prov:DEE BERNABE 07/08/17 Pantoprazole* (Pantoprazole*) 40 Mg Tablet.dr, 40 MG PO DAILY for 30 Days, 3 Refills Prov:DEE BERNABE 07/08/17 Clopidogrel Bisulfate (Clopidogrel) 75 Mg Tablet, 75 MG PO DAILY for 30 Days, TAB 3 Refills Prov:DEE BERNABE 07/08/17 Tamsulosin Hcl* (Flomax*) 0.4 Mg Cap.er.24h, 0.4 MG PO HS for 1 Day, CAP Prov:TAYLOR TSANG MD 09/09/16 Sertraline Hcl* (Sertraline Hcl*) 50 Mg Tablet, 50 MG PO DAILY for 1 Day, TAB Prov:TAYLOR TSANG MD 09/09/16 Hydrocodone Bit-Acetaminophen (Hydrocodone Bit-APAP) 5-325MG Tablet, 1 TAB PO Q3H Y for PAIN LEVEL 1-3 for 1 Day, TAB Prov:TAYLOR TSANG MD 09/09/16 Finasteride* (Finasteride*) 5 Mg Tablet, 5 MG PO DAILY for 1 Day, TAB Prov:TAYLOR TSANG MD 09/09/16 Ferrous Sulfate* (Ferrous Sulfate*) 325 Mg Tabec, 325 MG PO DAILY for 1 Day, TAB Prov:TAYLOR TSANG MD 09/09/16 Atorvastatin* (Atorvastatin*) 80 Mg Tablet, 80 MG PO DAILY@21 for 1 Day, TAB Prov:TAYLOR TSANG MD 09/09/16 Ascorbic Acid (Vitamin C) 500 Mg Tab, 500 MG PO DAILY for 1 Day, TAB Prov:TAYLOR TSANG MD 09/09/16 Allergies Allergies: Coded Allergies: No Known Allergy (Unverified , 07/03/17) PMhx/Soc History of Surgery: Yes (cabg 1 mo ago) Anesthesia Reaction: No Hx 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 Disorder: No Hx Respiratory Disorders: Yes (copd) Hx Cardiac Disorders: Yes (htn,cad,chf) Hx Psychiatric Problems: No Hx Miscellaneous Medical Probl: No Hx Alcohol Use: Yes (stopped 1 yr ago) Hx Substance Use: No Hx Tobacco Use: Yes Physical Exam Vitals Vital Signs Date Time Temp Pulse Resp B/P Pulse Ox O2 Delivery O2 Flow Rate FiO2 09/12/17 03:23 99 20 116/88 100 Nasal Cannula 09/12/17 02:50 100 4.0 33 09/12/17 01:21 Nasal Cannula 2.0 09/12/17 01:20 98.9 96 24 109/88 98 Physical Exam Const: No acute distress. Head: Atraumatic. Eyes: Normal Conjunctiva. ENT: Normal External Ears, Nose and Mouth. Neck: Full range of motion. No meningismus. Resp: Bibasilar crackle Cardio: Regular rate and rhythm. Abd: Soft, non distended, normal bowel sounds, non tender. Skin: No petechiae or rashes. Back: No midline or flank tenderness. Ext: No cyanosis, or edema. Neur: Awake and alert. No focal deficit Psych: Normal Mood and Affect. Result Diagram: 09/12/1722409/12/17224 Results 24 hrs Laboratory Tests Test 09/12/17 02:25 White Blood Count 8.310^3/ul Red Blood Count 4.3110^6/ul Hemoglobin 10.8g/dl Hematocrit 34.4% Mean Corpuscular Volume 79.8fl Mean Corpuscular Hemoglobin 25.1pg Mean Corpuscular Hemoglobin Concent 31.4g/dl Red Cell Distribution Width 16.2% Platelet Count 08748^3/UL Mean Platelet Volume 9.8fl Neutrophils % 63.9% Lymphocytes % 26.5% Monocytes % 6.5% Eosinophils % 2.0% Basophils % 0.7% Nucleated Red Blood Cells % 0.0/100WBC Neutrophils # 5.310^3/ul Lymphocytes # 2.210^3/ul Monocytes # 0.510^3/ul Eosinophils # 0.210^3/ul Basophils # 0.110^3/ul Nucleated Red Blood Cells # 0.010^3/ul Prothrombin Time 13.5Sec Prothrombin Time Ratio 1.1 INR International Normalized Ratio 1.03 Activated Partial Thromboplast Time 32.5Sec Sodium Level 142mmol/L Potassium Level 4.4mmol/L Chloride Level 109mmol/L Carbon Dioxide Level 24mmol/L Anion Gap 13 Blood Urea Nitrogen 18mg/dl Creatinine 0.87mg/dl Glucose Level 106mg/dl Calcium Level 9.1mg/dl Troponin I 0.093ng/ml B-Type Natriuretic Peptide 9710PG/ML Digoxin Level 0.5ng/ml Current Medications Medications (Trade) Dose Ordered Sig/Dimitrios Route PRN Reason Start Time Stop Time Status Last Admin Dose Admin Furosemide (Lasix) 20 mg ONCE ONCE IV 09/12/17 03:30 09/12/17 03:31 DC 09/12/17 03:23 Procedures/[place] [id number] Radiology Main Line: [phone] DIAGNOSTIC IMAGING REPORT Patient: HARJEET CALZADA : 1950 Age: 66 Sex: M MR #: [id number] DOS: 09/12/17 0138 Ordering MD: NEENA KAUR MD Location: E/R Room/Bed: PROCEDURE: XR Chest. CLINICAL INDICATION: Dyspnea. TECHNIQUE: Single frontal view of the chest COMPARISON: 08/18/2017 FINDINGS: Cardiomegaly. Atherosclerotic calcifications in the thoracic aorta. Pulmonary vascular congestion and mild patchy mid lung and lung base air space disease. Elevation of the right hemidiaphragm is again seen. Mild bilateral pleural effusions. No signs of pneumothorax are seen. The osseous structures and soft tissues are unremarkable. IMPRESSION: New mild failure. RPTAT: [facility] Physician Marvin Date Time Electronically viewed and signed by Physician Marvin on 09/12/2017 02:49 RS/ CC: NEENA KAUR MD EKG: Read by emergency physician Rate/Rhythm: Normal Sinus Rhythm 99 beats/min QRS, ST, T-waves: No ST elevation, no T inversion, RAD, nonspecific intraventricular conduction delay, nonspecific ST and T abnormality Impression: Abnormal EKG MEDICAL MAKING DECISION: The patient is a 66-year-old male, presenting with acute CHF exacerbation. He was treated with Lasix 20 mg IV with good response The differential diagnoses considered include but are not limited to asthma, COPD, pneumonia, pulmonary embolus, pleural effusion, congestive heart failure. Departure Diagnosis: Primary Impression: CHF (congestive heart failure) Additional Impression: Anemia Condition: Stable Comments I discussed the findings with the patient. I discussed the patient with his physician Dr. Bernabe at 4 am who was made aware of the lab, the treatment, the patient condition. The patient is admitted to [facility] because he is unstable for transfer NEENA KAUR MD Sep 12, 2017 01:27 NEENA KAUR MD Sep 12, 2017 01:27
[2017-09-12 02:35] LABS: BASOPHIL # 0.1 10^3/ul (0.0-0.1); BASOPHILS % 0.7 % (0.0-2.0); EOSINOPHILS # 0.2 10^3/ul (0.0-0.5); HEMATOCRIT 34.4 % (42.0-52.0); HEMOGLOBIN 10.8 g/dl (14.0-18.0); LYMPHOCYTES # 2.2 10^3/ul (0.8-2.9); LYMPHOCYTES % 26.5 % (15.0-51.0); MEAN CORPUSCULAR HEMOGLOBIN 25.1 pg (29.0-33.0); MEAN CORPUSCULAR HGB CONC 31.4 g/dl (32.0-37.0); MEAN CORPUSCULAR VOLUME 79.8 fl (82.0-101.0); MEAN PLATELET VOLUME 9.8 fl (7.4-10.4); MONOCYTE # 0.5 10^3/ul (0.3-0.9); MONOCYTES % 6.5 % (0.0-11.0); NEUTROPHIL # 5.3 10^3/ul (1.6-7.5); NEUTROPHILS % 63.9 % (39.0-77.0); PLATELET COUNT 267 10^3/UL (140-415); RED BLOOD COUNT 4.31 10^6/ul (4.70-6.10); RED CELL DISTRIBUTION WIDTH 16.2 % (11.5-14.5); WHITE BLOOD COUNT 8.3 10^3/ul (4.8-10.8)
--- NOTE | 2017-09-12 02:50 | RADRPT ---
PROCEDURE: XR Chest. CLINICAL INDICATION: Dyspnea. TECHNIQUE: Single frontal view of the chest COMPARISON: 08/18/2017 FINDINGS: Cardiomegaly. Atherosclerotic calcifications in the thoracic aorta. Pulmonary vascular congestion an d mild patchy mid lung and lung base air space disease. Elevation of the right hemidiaphragm is agai n seen. Mild bilateral pleural effusions. No signs of pneumothorax are seen. The osseous structures and soft tissues are unremarkable. IMPRESSION: New mild failure. RPTAT: [facility] Physician Marvin Date Time Electronically viewed and signed by Physician Marvin on 09/12/2017 02:49 RS/
[2017-09-12 02:52] LABS: INR 1.03; PARTIAL THROMBOPLASTIN TIME 32.5 Sec (25.0-35.0); PROTIME 13.5 Sec (12.2-14.2); PT RATIO 1.1
[2017-09-12 02:55] LABS: CALCIUM 9.1 mg/dl (8.4-10.2); CREATININE 0.87 mg/dl (0.61-1.24); POTASSIUM 4.4 mmol/L (3.5-5.1)
[2017-09-12 03:07] LABS: TROPONIN-I 0.093 ng/ml (0.00-0.12)
[2017-09-12] MEDS ORDERED: FUROSEMIDE 20 MG INJ IV ONE ×2 (03:30→06:30)
[2017-09-12] MEDS ORDERED: LEVALBUTEROL (NEB) 1.25 MG/0.5 ML AMP HHN ONE (04:30)
[2017-09-12] MEDS ORDERED: IPRATROPIUM (NEB) 0.5 MG/2.5 ML AMP HHN ONE (04:30)
[2017-09-12 08:56] LABS: TROPONIN-I 0.083 ng/ml (0.00-0.12)
[2017-09-12 09:15] LABS: CK-MB 3.25 ng/ml (0.0-2.4)
[2017-09-12] MEDS ORDERED: ALBUTEROL/IPRATROPIUM (NEB) 3 ML AMP HHN PRN (10:30)
[2017-09-12] MEDS ORDERED: LEVALBUTEROL (NEB) 0.63 MG/3 ML AMP HHN PRN (10:30)
--- NOTE | 2017-09-12 10:30 | HP ---
Date/Time of Note Date/Time of Note DATE: 09/12/17 TIME: 10:02 Assessment/Plan VTE Prophylaxis VTE Prophylaxis Intervention: SCD's Lines/Catheters IV Catheter Type (from [facility]): Peripheral IV Urinary Cath still in place: No Assessment/Plan Assessment/Plan 66-year-old male with 1. Congestive heart failure exacerbation, patient with known ischemic cardiomyopathy ejection fraction of 20%, has been admitted here at [facility] almost monthly for the past 2 months, he is status post bypass surgery a couple of months ago. Resume IV Bumex and Aldactone, we will recheck his chest x-ray in a.m., replete electrolytes as needed Patient also on digoxin currently, unclear if had previous atrial fibrillation or not. Check level 2. Severe coronary artery disease, status post coronary artery bypass surgery, ischemic cardiomyopathy with systolic dysfunction, ejection fraction of 20%. Patient did have episodes of nonsustained V. tach on last admission. Will monitor on this admission. Continue diuresis and current cardiac medications. Replete electrolytes as needed. 3. Chronic obstructive pulmonary disease, tobacco user, still smoking. Chronic hypoxemia, on 3 L nasal cannula at home. Continue Advair and Spiriva along with Duonebs as needed. Smoking cessation, patient has declined nicotine patch. 4. Hyperlipidemia: Continue statin therapy 5. Benign prostatic hypertrophy: Continue home medications. 6. Gastroesophageal reflux disease: Continue Protonix. 7. Major depressive disorder: Continue home medications. Prophylaxis: Protonix for GI prophylaxis, SCDs for DVT prophylaxis Disposition: Continue diuresis. Strict I's and O's. Chest x-ray in a.m. HPI/ROS Admit Date/Time Admit Date/Time Sep 12, 2017 at 04:03 Hx of Present Illness Chief complaint: Shortness of breath History of presenting illness: This is a 66-year-old male with history of congestive heart failure, chronic systolic dysfunction, ejection fraction 20%, ischemic cardiomyopathy, coronary artery disease, COPD, tobacco use, benign prostatic hypertrophy, multiple admissions for CHF exacerbation over the past 2 month who presented to the emergency department again with complains of 3 days of increasing orthopnea and paroxysmal nocturnal dyspnea. She reports that his shortness of breath actually improved once he walks around a little bit, he has some pleuritic-like chest pain bilateral lower chest. He claims he has been compliant with all his "15" medications but unable to name them, he does recall taking diuretics daily. He denies fever, chills, genitourinary or gastrointestinal complaints, no neurological complaints. He is on 3 L nasal cannula at home. Patient is admitted for diuresis and close cardiac monitoring. He does have a history of nonsustained V. tach on previous admission, he will be monitored on telemetry. Continue diuresis. We will also rule him out for acute coronary syndrome. ROS Constitutional: no complaints Eyes: no complaints ENT: no complaints Cardiovascular: chest pain (Likely pleuritic), orthopenea, paroxysmal nocturnal dyspnea Gastrointestinal: no complaints Genitourinary: no complaints Musculoskeletal: no complaints Skin: no complaints Neurologic: no complaints Endocrine: no complaints Lymphatic: no complaints PMH/Family/Social Past Medical History Chronic artery disease, status post coronary artery bypass surgery a couple of months ago Ischemic cardiomyopathy Congestive heart failure ejection fraction 20%, chronic systolic dysfunction Chronic hypoxemia, 3 L nasal cannula at home COPD Hypertension Hyperlipidemia Tobacco use BPH GERD Major depressive disorder Past Surgical History Past Surgical Hx: angioplasty, coronary bypass surgery Family History Significant Family History: no pertinent family hx Social History Alcohol Use: none Smoking Status: Current every day smoker (1-2 cigarettes a day but likely to smoke more) Drug Use: none Exam/Review of Systems Vital Signs Vitals Vital Signs Date Time Temp Pulse Resp B/P Pulse Ox O2 Delivery O2 Flow Rate FiO2 09/12/17 08:34 96 09/12/17 07:26 98.1 18 115/66 98 09/12/17 05:30 Nasal Cannula 3.0 09/12/17 04:15 33 Exam Constitutional: alert, oriented, well developed Respiratory: diminished breath sounds (Bilaterally) Cardiovascular: nl pulses, regular rate and rhythm Gastrointestinal: non-tender, soft Musculoskeletal: nl extremities to inspection, other (No edema, clubbing or cyanosis) Extremities: normal pulses 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: [employer] II-XII intact, nl mental status, nl speech, nl strength Labs Result Diagram: 09/12/1722409/12/17224 Medications Medications Current Medications Furosemide (Lasix) 40 mg BID IV ; Start 09/12/17 at 14:00 Carvedilol (Coreg) 3.125 mg Q12 PO Last administered on 09/12/17t 08:58; Admin Dose 3.125 MG; Start 09/12/17 at 09:00 Procedures Procedures PROCEDURE: XR Chest. CLINICAL INDICATION: Dyspnea. TECHNIQUE: Single frontal view of the chest COMPARISON: 08/18/2017 FINDINGS: Cardiomegaly. Atherosclerotic calcifications in the thoracic aorta. Pulmonary vascular congestion and mild patchy mid lung and lung base air space disease. Elevation of the right hemidiaphragm is again seen. Mild bilateral pleural effusions. No signs of pneumothorax are seen. The osseous structures and soft tissues are unremarkable. IMPRESSION: New mild failure. RPTAT: [facility] Physician Marvin Date Time Electronically viewed and signed by Finn Fong Physician on 09/12/2017 02:49 RS/ CC: NEENA KAUR MD, N'DEYE F Sep 12, 2017 10:12
[2017-09-12] MEDS: FERROUS SULFATE (EC) 325 MG TAB PO SCH (11:49)
[2017-09-12] MEDS: CLOPIDOGREL 75 MG TAB PO SCH (11:49)
[2017-09-12] MEDS: SERTRALINE 50 MG TAB PO SCH (11:49)
[2017-09-12] MEDS: ASCORBIC ACID 500 MG TAB PO SCH (11:49)
[2017-09-12] MEDS: ASPIRIN (EC) 81 MG TAB PO SCH (11:49)
[2017-09-12] MEDS: SPIRONOLACTONE 25 MG TAB PO SCH (11:49)
[2017-09-12] MEDS: POTASSIUM CHLORIDE (SR) 20 MEQ TAB PO SCH (11:49)
[2017-09-12] MEDS: HYDROCODONE/APAP (5/325) TAB PO PRN ×4 (11:50→22:13)
[2017-09-12] MEDS: LISINOPRIL 5 MG TAB PO SCH (11:50)
[2017-09-12] MEDS ORDERED: FUROSEMIDE 40 MG INJ IV SCH (14:00)
[2017-09-12 14:24] LABS: TROPONIN-I 0.075 ng/ml (0.00-0.12)
[2017-09-12 14:33] LABS: CK-MB 2.38 ng/ml (0.0-2.4)
[2017-09-12] MEDS: LEVALBUTEROL (NEB) 0.63 MG/3 ML AMP HHN SCH (16:09)
[2017-09-12] MEDS: BUMETANIDE 1 MG INJ IV SCH (17:17)
[2017-09-12 21:00] LABS: TROPONIN-I 0.086 ng/ml (0.00-0.12)
[2017-09-12] MEDS ORDERED: DIGOXIN 0.125 MG TAB PO SCH (21:00)
[2017-09-12] MEDS ORDERED: ATORVASTATIN 80 MG TAB PO SCH (21:00)
[2017-09-12] MEDS ORDERED: TAMSULOSIN (SR) 0.4 MG CAP PO SCH (21:00)
[2017-09-12 21:17] LABS: CK-MB 2.28 ng/ml (0.0-2.4)
[2017-09-12] MEDS: SALMETEROL/FLUTICASONE 250/50 INHA INH SCH (22:02)
[2017-09-13] VITALS (8 sets, daily range): BP systolic 96–116; BP diastolic 58–69; PULSE 87–90; RESP 18
[2017-09-13] MEDS: LEVALBUTEROL (NEB) 0.63 MG/3 ML AMP HHN SCH ×3 (00:22→16:00)
[2017-09-13] MEDS: BUMETANIDE 1 MG INJ IV SCH (05:35)
[2017-09-13] MEDS: HYDROCODONE/APAP (5/325) TAB PO PRN ×2 (05:39→09:33)
[2017-09-13] MEDS ORDERED: PANTOPRAZOLE (EC) 40 MG TAB PO SCH (06:00)
[2017-09-13 06:36] LABS: BASOPHILS % 0.5 % (0.0-2.0); EOSINOPHILS # 0.3 10^3/ul (0.0-0.5); EOSINOPHILS % 3.3 % (0.0-7.0); HEMATOCRIT 35.9 % (42.0-52.0); HEMOGLOBIN 11.3 g/dl (14.0-18.0); LYMPHOCYTES # 1.8 10^3/ul (0.8-2.9); MEAN CORPUSCULAR HEMOGLOBIN 24.9 pg (29.0-33.0); MEAN CORPUSCULAR HGB CONC 31.5 g/dl (32.0-37.0); MEAN CORPUSCULAR VOLUME 79.2 fl (82.0-101.0); MEAN PLATELET VOLUME 9.9 fl (7.4-10.4); MONOCYTE # 0.6 10^3/ul (0.3-0.9); MONOCYTES % 7.5 % (0.0-11.0); NEUTROPHIL # 4.9 10^3/ul (1.6-7.5); NEUTROPHILS % 64.4 % (39.0-77.0); PLATELET COUNT 274 10^3/UL (140-415); RED BLOOD COUNT 4.53 10^6/ul (4.70-6.10); RED CELL DISTRIBUTION WIDTH 16.3 % (11.5-14.5); WHITE BLOOD COUNT 7.6 10^3/ul (4.8-10.8)
[2017-09-13 07:19] LABS: MAGNESIUM 1.6 mg/dl (1.7-2.5)
[2017-09-13 07:28] LABS: ALBUMIN 3.9 g/dl (3.3-4.9); ALBUMIN/GLOBULIN RATIO 1.21; BILIRUBIN,INDIRECT 0.4 mg/dl (0-1.1); BILIRUBIN,TOTAL 0.4 mg/dl (0.2-1.3); CALCIUM 9.1 mg/dl (8.4-10.2); CREATININE 0.81 mg/dl (0.61-1.24); TOTAL PROTEIN 7.1 g/dl (6.1-8.1)
[2017-09-13 07:38] LABS: PHOSPHORUS 4.2 mg/dl (2.5-4.9)
[2017-09-13] MEDS ORDERED: TIOTROPIUM 18 MCG CAPSULE INHA DEV INH SCH (09:00)
[2017-09-13] MEDS ORDERED: FINASTERIDE 5 MG TAB PO SCH (09:00)
[2017-09-13] MEDS ORDERED: DOCUSATE SODIUM 100 MG CAP PO SCH (09:00)
[2017-09-13] MEDS: FERROUS SULFATE (EC) 325 MG TAB PO SCH (09:00)
[2017-09-13] MEDS: SALMETEROL/FLUTICASONE 250/50 INHA INH SCH (09:23)
[2017-09-13] MEDS: SPIRONOLACTONE 25 MG TAB PO SCH (09:25)
[2017-09-13] MEDS: SERTRALINE 50 MG TAB PO SCH (09:28)
[2017-09-13] MEDS: POTASSIUM CHLORIDE (SR) 20 MEQ TAB PO SCH (09:28)
[2017-09-13] MEDS: CLOPIDOGREL 75 MG TAB PO SCH (09:28)
[2017-09-13] MEDS: LISINOPRIL 5 MG TAB PO SCH (09:28)
[2017-09-13] MEDS: ASPIRIN (EC) 81 MG TAB PO SCH (09:28)
[2017-09-13] MEDS: ASCORBIC ACID 500 MG TAB PO SCH (09:28)
[2017-09-13] MEDS ORDERED: MAGNESIUM SULFATE 4 GM/100 ML 100 ML IVPB ONE (10:00)
--- NOTE | 2017-09-13 12:28 | RADRPT ---
PROCEDURE: Chest 2 views. CLINICAL INDICATION: Shortness of breath. TECHNIQUE: PA and lateral views of the chest were obtained. COMPARISON: September 12, 2017 FINDINGS: The heart is large. Mediasternotomy wires and surgical clips overlie the heart. Atrial appendage cli p is identified. Potential epicardial lead is identified over the anterior margin of the heart. Elev ated right hemidiaphragm is noted. Mild central pulmonary vascular congestion and interstitial promi nence is seen in both lungs. Superimposed patchy infiltrates throughout the left lung and in the rig ht lower lobe have decreased. Scattered atelectasis remains. Blunting of the left posterior costophr enic angle is seen. Osseous structures are intact. IMPRESSION: Cardiomegaly. Elevated right hemidiaphragm. Mild central pulmonary vascular congestion and interstitial prominence in both lungs. Interval decrease in patchy infiltrates throughout the left lung and in the right lower lobe. Scatte red atelectasis remains. Blunting of the left posterior costophrenic angle that may reflect small pleural effusion. RPTAT: AA .Osmar Gomez MD, Date Time Electronically viewed and signed by .Osmar Gomez MD, MD on 09/13/2017 12:28 .P/
--- NOTE | 2017-09-13 14:05 | PN ---
Date/Time of Note Date/Time of Note DATE: 09/13/17 TIME: 13:53 Assessment/Plan VTE Prophylaxis VTE Prophylaxis Intervention: SCD's Lines/Catheters IV Catheter Type (from [facility]): Saline Lock Urinary Cath still in place: No Assessment/Plan Assessment/Plan 66-year-old male with 1. Congestive heart failure exacerbation, patient with known ischemic cardiomyopathy ejection fraction of 20%, has been admitted here at [facility] almost monthly for the past 2 months, he is status post bypass surgery a couple of months ago. Close to baseline, will discharge home on oral Bumex and Aldactone, recheck CXR this AM show some significant improvement. Replete electrolytes as needed Patient also on digoxin currently, unclear if had previous atrial fibrillation or not. Level is low. 2. Severe coronary artery disease, status post coronary artery bypass surgery, ischemic cardiomyopathy with systolic dysfunction, ejection fraction of 20%. Patient did have episodes of nonsustained V. tach on last admission. Will monitor on this admission. Continue diuresis with oral medications and current cardiac medications. Patient has follow-up with cardiology on 09/26 per his report Replete electrolytes as needed. 3. Chronic obstructive pulmonary disease, tobacco user, still smoking. Chronic hypoxemia, on 3 L nasal cannula at home. Continue Advair and Spiriva along with Duonebs as needed. Smoking cessation, patient has declined nicotine patch. 4. Hyperlipidemia: Continue statin therapy 5. Benign prostatic hypertrophy: Continue home medications. 6. Gastroesophageal reflux disease: Continue Protonix. 7. Major depressive disorder: Continue home medications. Prophylaxis: Protonix for GI prophylaxis, SCDs for DVT prophylaxis Disposition: Chest x-ray with some improvement, discharge home today, patient to continue his home O2, he is to follow-up with his primary care physician tomorrow he claims he already has an appointment, also he has an appointment for cardiology outpatient on 09/26. Subjective 24 Hr Interval Summary Free Text/Dictation Patient doing well today, his respiratory status is back to baseline at least for the past 24 hours according to patient. No episode of arrhythmia noted. No episodes of NSVT. Electrolytes stable, tolerating Bumex very well. Patient claims he has all medications at home and has appointments lined up this week. Stable to discharge today. Exam/Review of Systems Vital Signs Vitals Vital Signs Date Time Temp Pulse Resp B/P Pulse Ox O2 Delivery O2 Flow Rate FiO2 09/13/17 12:12 90 09/13/17 12:05 98.2 18 100/58 96 09/13/17 08:12 Nasal Cannula 2.0 09/12/17 04:15 33 Intake and Output 09/12/17 09/12/17 09/13/17 15:00 23:00 07:00 Intake Total 750 ml 240 ml Output Total 1900 ml 750 ml Balance -1150 ml -510 ml Exam Constitutional: alert, oriented, well developed Respiratory: clear to auscultation, normal air movement Cardiovascular: nl pulses, regular rate and rhythm Gastrointestinal: non-tender, soft Musculoskeletal: nl extremities to inspection Extremities: normal pulses, other (No edema, clubbing or cyanosis) 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: BLOCKERS SKIVER II-XII intact, nl mental status, nl speech, nl strength Results Result Diagram: 09/13/17 0538 09/13/17 0540 Results 24 hrs Laboratory Tests Test 09/12/17 20:13 09/13/17 05:38 09/13/17 05:40 Creatine Kinase 38 Creatine Kinase Index 6.0 Creatinine Kinase MB (Mass) 2.28 Troponin I 0.086 White Blood Count 7.6 Red Blood Count 4.53 L Hemoglobin 11.3 L Hematocrit 35.9 L Mean Corpuscular Volume 79.2 L Mean Corpuscular Hemoglobin 24.9 L Mean Corpuscular Hemoglobin Concent 31.5 L Red Cell Distribution Width 16.3 H Platelet Count 274 Mean Platelet Volume 9.9 Neutrophils % 64.4 Lymphocytes % 24.0 Monocytes % 7.5 Eosinophils % 3.3 Basophils % 0.5 Nucleated Red Blood Cells % 0.0 Neutrophils # 4.9 Lymphocytes # 1.8 Monocytes # 0.6 Eosinophils # 0.3 Basophils # 0.0 Nucleated Red Blood Cells # 0.0 Sodium Level 140 Potassium Level 4.0 Chloride Level 103 Carbon Dioxide Level 27 Anion Gap 14 Blood Urea Nitrogen 21 H Creatinine 0.81 Glucose Level 110 Calcium Level 9.1 Phosphorus Level 4.2 Magnesium Level 1.6 L Total Bilirubin 0.4 Direct Bilirubin 0.00 Indirect Bilirubin 0.4 Aspartate Amino Transf (AST/SGOT) 16 Alanine Aminotransferase (ALT/SGPT) 30 Alkaline Phosphatase 44 Total Protein 7.1 Albumin 3.9 Globulin 3.20 Albumin/Globulin Ratio 1.21 Medications Medications Current Medications Carvedilol (Coreg) 3.125 mg Q12 PO Last administered on 09/13/17 09:28; Admin Dose 3.125 MG; Start 09/12/17 at 09:00 Ascorbic Acid (Vitamin C) 500 mg DAILY PO Last administered on 09/13/17 09:28 ; Admin Dose 500 MG; Start 09/12/17 at 11:00 Aspirin (Halfprin) 81 mg DAILY PO Last administered on 09/13/17 09:28; Admin Dose 81 MG; Start 09/12/17 at 11:00 Atorvastatin Calcium (Lipitor) 80 mg DAILY@21 PO Last administered on 22:02; Admin Dose 80 MG; Start 09/12/17 at 21:00 Clopidogrel Bisulfate (plaVIX) 75 mg DAILY PO Last administered on 09/13/17 09:28; Admin Dose 75 MG; Start 09/12/17 at 11:00 Digoxin (Digoxin) 0.125 mg QHS PO Last administered on 09/12/17 22:03; Admin Dose 0.125 MG; Start 09/12/17 at 21:00 Ferrous Sulfate (Ferrous Sulfate (Ec)) 325 mg DAILY PO Last administered on 11:49; Admin Dose 325 MG; Start 09/12/17 at 11:00 Finasteride (Proscar) 5 mg DAILY PO Last administered on 09/13/17 09:28; Admin Dose 5 MG; Start 09/13/17 at 09:00 Acetaminophen/ Hydrocodone Bitart (Energy (5/325)) 1 tab Q3H PRN PO PAIN LEVEL 1 -3 Last administered on 09/13/17 09:33; Admin Dose 1 TAB; Start 09/12/17 at 10:30 Lisinopril (Zestril) 2.5 mg DAILY PO Last administered on 09/13/17 09:28; Admin Dose 2.5 MG; Start 09/12/17 at 11:00 Pantoprazole (Protonix Tab) 40 mg DAILY@06 PO Last administered on 09/13/17 05:35; Admin Dose 40 MG; Start 09/13/17 at 06:00 Potassium Chloride (Klor-Con 20) 20 meq DAILY PO Last administered on 09:28; Admin Dose 20 MEQ; Start 09/12/17 at 11:00 Salmeterol Xinafoate/ Fluticasone (Advair 250/50 Diskus) 1 inh BID INH Last administered on 09/13/17 09:23; Admin Dose 1 INH; Start 09/12/17 at 21:00 Sertraline HCl (Zoloft) 50 mg DAILY PO Last administered on 09/13/17 09:28; Admin Dose 50 MG; Start 09/12/17 at 11:00 Spironolactone (Aldactone) 25 mg DAILY PO Last administered on 09/13/17 09:25 ; Admin Dose 25 MG; Start 09/12/17 at 11:00 Tamsulosin HCl (Flomax) 0.4 mg HS PO Last administered on 09/12/17 22:03; Admin Dose 0.4 MG; Start 09/12/17 at 21:00 Tiotropium [place] (Spiriva) 1 inh DAILY INH Last administered on 09/13/17 09 :25; Admin Dose 1 INH; Start 09/13/17 at 09:00 Docusate Sodium 100 mg 100 mg BID PO Last administered on 09/13/17 09:27; Admin Dose 100 MG; Start 09/13/17 at 09:00 Magnesium Sulfate (Magnesium Sulfate 4 Gm/100 ml) 100 ml @ 25 mls/hr ONCE ONCE IVPB Last administered on 09/13/17 13:00; Admin Dose 25 MLS/HR; Start 09/13/17 at 10:00; Stop 09/13/17 at 13:59 DEE BERNABE Sep 13, 2017 14:05
--- NOTE | 2017-09-13 14:06 | PDOCDIS ---
Discharge Instructions CONDITION Patient Condition: Stable HOME CARE INSTRUCTIONS: Special Diet: Cardiac ACTIVITY: Activity Restrictions: Slowly Increase Activity FOLLOW UP/APPOINTMENTS Follow-up Plan Follow-up with primary care physician within 1 week, patient actually has a previously scheduled appointment for tomorrow Follow-up with cardiology as an outpatient within 2 weeks, patient has a previously scheduled appointment for 09/26 also. Resume home oxygen at home. EDE BERNABE Sep 13, 2017 14:06
[2017-09-13] MEDS ORDERED: SPIR25TA PO (14:08)
[2017-09-13] MEDS ORDERED: BUME1TAB18 PO (14:08)
[2017-09-13] MEDS ORDERED: LORAZEPAM 1 MG TAB PO ONE (14:40)
== END 2017-09-13 16:21 | disposition home or self-care (01) | DRG 292 ==
LOC: E/R 01:13 → TEL 04:03
PROVIDERS: ADMIT Internal Medicine; ATTEND Internal Medicine
DX: I50.9 Heart failure, unspecified (principal); I25.810 Atherosclerosis of coronary artery bypass graft(s) without angina pectoris; Z95.1 Presence of aortocoronary bypass graft; J44.9 Chronic obstructive pulmonary disease, unspecified; I25.10 Atherosclerotic heart disease of native coronary artery without angina pectoris; E78.5 Hyperlipidemia, unspecified; N40.0 Benign prostatic hyperplasia without lower urinary tract symptoms; F32.9 Major depressive disorder, single episode, unspecified
CPT/HCPCS: 71010; 71020; 80048; 80053; 80162; 82550; 82553; 83735; 83880; 84100; 84484; 85025; 85610; 85730; 94640; 94664; J1940

== ENCOUNTER 2017-11-01 14:54 | Inpatient (IN) | payer OTHER ==
[~2017-11-01] VITALS: Ht 172.7 cm; Wt 79.7 kg
[~2017-11-01 14:54] MED LIST changes: -AMOX1TAB10 PO
[2017-11-01] MEDS ORDERED: FUROSEMIDE 20 MG INJ IV STA (15:22)
[2017-11-01] MEDS ORDERED: morphine 4 MG/ML VIAL IV STA (15:22)
[2017-11-01] MEDS ORDERED: ONDANSETRON 4 MG INJ IV STA (15:22)
[2017-11-01 15:53] LABS: BASOPHILS % 0.5 % (0.0-2.0); EOSINOPHILS # 0.3 10^3/ul (0.0-0.5); EOSINOPHILS % 3.5 % (0.0-7.0); HEMATOCRIT 37.8 % (42.0-52.0); HEMOGLOBIN 11.8 g/dl (14.0-18.0); LYMPHOCYTES # 1.8 10^3/ul (0.8-2.9); MEAN CORPUSCULAR HEMOGLOBIN 24.8 pg (29.0-33.0); MEAN CORPUSCULAR HGB CONC 31.2 g/dl (32.0-37.0); MEAN CORPUSCULAR VOLUME 79.4 fl (82.0-101.0); MEAN PLATELET VOLUME 9.3 fl (7.4-10.4); MONOCYTE # 0.4 10^3/ul (0.3-0.9); MONOCYTES % 5.5 % (0.0-11.0); NEUTROPHIL # 5.4 10^3/ul (1.6-7.5); NEUTROPHILS % 67.2 % (39.0-77.0); PLATELET COUNT 348 10^3/UL (140-415); RED BLOOD COUNT 4.76 10^6/ul (4.70-6.10); RED CELL DISTRIBUTION WIDTH 16.6 % (11.5-14.5)
[2017-11-01 16:10] LABS: INR 0.96; PROTIME 12.9 Sec (11.9-14.9)
[2017-11-01 16:11] LABS: PARTIAL THROMBOPLASTIN TIME 31.9 Sec (25.0-35.0)
[2017-11-01 16:14] LABS: ALBUMIN 4.2 g/dl (3.3-4.9); ALBUMIN/GLOBULIN RATIO 1.16; BILIRUBIN,INDIRECT 0.1 mg/dl (0-1.1); BILIRUBIN,TOTAL 0.1 mg/dl (0.2-1.3); CALCIUM 8.9 mg/dl (8.4-10.2); CREATININE 0.91 mg/dl (0.61-1.24); POTASSIUM 4.5 mmol/L (3.5-5.1); TOTAL PROTEIN 7.8 g/dl (6.1-8.1)
[2017-11-01 16:26] LABS: TROPONIN-I 0.017 ng/ml (0.00-0.12)
--- NOTE | 2017-11-01 16:28 | RADRPT ---
PROCEDURE: Chest radiograph CLINICAL INDICATION: Chest Pain.. COMPARISON: Radiograph from 08/18/2017. TECHNIQUE: Single frontal chest radiograph. FINDINGS: Low lung volumes. The right diaphragm is elevated. Thickening of the right minor fissure which may represent loculated fluid or scar. Moderate pulmonary vascular congestion. No pleural effusion. Cardiomegaly with the atrial appendage clip. Aortic calcifications. Median sternotomy with fracture wires. No suspicious bone lesion. IMPRESSION: Cardiomegaly with mildly increased moderate pulmonary vascular congestion. RPTAT: PP Physician Marva Date Time Electronically viewed and signed by Physician Marva on 11/01/2017 16:28 LG/
--- NOTE | 2017-11-01 18:48 | ERD ---
ER Documentation Chief Complaint Chief Complaint shortness of breath - hx of heart surgery 3 months ago HPI This is a 66-year-old male history of coronary artery bypass graft 3 months ago. Patient complains of 2 days of shortness of breath is gradually gotten worse. Today says his breathing is much worse she is having a difficult time breathing and shortness of breath on exertion and orthopnea. The patient says he is having no chest pain no recent illness no cough no abdominal pain vomiting diarrhea ROS All systems reviewed and are negative except as per history of present illness. Medications Home Meds Active Scripts Bumetanide* (Bumetanide*) 1 Mg Tablet, 1 MG PO BID DIURETICS for 30 Days, TAB 3 Refills Prov:FLORECITADEE West 09/13/17 Spironolactone* (Aldactone*) 25 Mg Tablet, 25 MG PO DAILY for 30 Days, TAB 3 Refills Prov:FLORECITADEE 09/13/17 Lisinopril* (Lisinopril*) 2.5 Mg Tablet, 2.5 MG PO DAILY, #30 TAB 3 Refills Prov:FLORECITADEE West 07/08/17 Digoxin* (Digitek*) 125 Mcg Tablet, 0.125 MG PO QHS for 30 Days, TAB 3 Refills Prov:FLORECITADEE West 07/08/17 Carvedilol* (Carvedilol*) 6.25 Mg Tablet, 6.25 MG PO BID for 30 Days, TAB 3 Refills Prov:DEE BERNABE 07/08/17 Aspirin* (Aspirin* EC) 81 Mg Tablet.dr, 81 MG PO DAILY for 30 Days, 3 Refills Prov:FLORECITADEE West 07/08/17 Potassium Chloride* (Potassium Chloride*) 20 Meq Tablet.er, 20 MEQ PO DAILY for 30 Days, TAB.SA Prov:DEE BERNABE 07/08/17 Salmeterol Xinaf/Fluticasone* (Advair*) 250-50 Diskus Inhaler, 1 INH INH BID, # 1 INHALER 3 Refills Prov:FLORECITADEE West 07/08/17 Tiotropium [place]* (Spiriva*) 18 Mcg Cap.w.dev, 1 INH INH DAILY, #1 INHALER 3 Refills Prov:DEE BERNABE 07/08/17 Pantoprazole* (Pantoprazole*) 40 Mg Tablet.dr, 40 MG PO DAILY for 30 Days, 3 Refills Prov:DEE BERNABE 07/08/17 Clopidogrel Bisulfate (Clopidogrel) 75 Mg Tablet, 75 MG PO DAILY for 30 Days, TAB 3 Refills Prov:DEE BERNABE 07/08/17 Tamsulosin Hcl* (Flomax*) 0.4 Mg Cap.er.24h, 0.4 MG PO HS for 1 Day, CAP Prov:TAYLOR TSANG MD 09/09/16 Sertraline Hcl* (Sertraline Hcl*) 50 Mg Tablet, 50 MG PO DAILY for 1 Day, TAB Prov:TAYLOR TSANG MD 09/09/16 Hydrocodone Bit-Acetaminophen (Hydrocodone Bit-APAP) 5-325MG Tablet, 1 TAB PO Q3H Y for PAIN LEVEL 1-3 for 1 Day, TAB Prov:TAYLOR TSANG MD 09/09/16 Finasteride* (Finasteride*) 5 Mg Tablet, 5 MG PO DAILY for 1 Day, TAB Prov:TAYLOR TSANG MD 09/09/16 Ferrous Sulfate* (Ferrous Sulfate*) 325 Mg Tabec, 325 MG PO DAILY for 1 Day, TAB Prov:TAYLOR TSANG MD 09/09/16 Atorvastatin* (Atorvastatin*) 80 Mg Tablet, 80 MG PO DAILY@21 for 1 Day, TAB Prov:TAYLOR TSANG MD 09/09/16 Ascorbic Acid (Vitamin C) 500 Mg Tab, 500 MG PO DAILY for 1 Day, TAB Prov:TAYLOR TSANG MD 09/09/16 Allergies Allergies: Coded Allergies: No Known Allergy (Unverified , 11/01/17) PMhx/Soc History of Surgery: Yes (open heart surgery , right hip replacemnt ) Anesthesia Reaction: No Hx 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 Disorder: No Hx Respiratory Disorders: Yes (copd) Hx Cardiac Disorders: Yes (htn , ) Hx Psychiatric Problems: No Hx Miscellaneous Medical Probl: No Hx Alcohol Use: No Hx Substance Use: No Hx Tobacco Use: Yes (2-3 Cig./day) Smoking Status: Current every day smoker FmHx Family History: No coronary disease Physical Exam Vitals Vital Signs Date Time Temp Pulse Resp B/P Pulse Ox O2 Delivery O2 Flow Rate FiO2 11/01/17 17:10 105 33 113/77 98 Nasal Cannula 3.0 11/01/17 15:24 Nasal Cannula 2 11/01/17 15:20 92 33 117/91 100 Nasal Cannula 2.0 11/01/17 14:56 97.9 95 26 128/71 95 Physical Exam Const: Well-developed, well-nourished Head: Atraumatic, normocephalic Eyes: Normal Conjunctiva, PERRLA, EOMI, normal sclera, no nystagmus ENT: Normal External Ears, Nose and Mouth, moist mucus membranes. Neck: Full range of motion. No meningismus, no lymphadenopathy. Resp: [C diffuse crackles, he does have increased work of breathing with mild accessory muscle use Cardio: Regular rate and rhythm, no murmurs, S1 S2 present Abd: Soft, non tender x 4, non distended. Normal bowel sounds, no guarding or rebound, no pulsitile abdominal masses or bruits Skin: No petechiae or rashes, no ecchymosis , no maculopapular rash Back: No midline or flank tenderness Ext: No cyanosis, or edema, FROM x 4, normal inspection, neurovascularly intact x 4 Neur: Awake and alert, STR 5/5 x 4, sensation intact x 4, no focal findings, cerebellum intact Psych: Normal Mood and Affect Result Diagram: 11/01/17 1544 11/01/17 1544 Results 24 hrs Laboratory Tests Test 11/01/17 15:44 White Blood Count 8.010^3/ul Red Blood Count 4.7610^6/ul Hemoglobin 11.8g/dl Hematocrit 37.8% Mean Corpuscular Volume 79.4fl Mean Corpuscular Hemoglobin 24.8pg Mean Corpuscular Hemoglobin Concent 31.2g/dl Red Cell Distribution Width 16.6% Platelet Count 85273^3/UL Mean Platelet Volume 9.3fl Neutrophils % 67.2% Lymphocytes % 23.0% Monocytes % 5.5% Eosinophils % 3.5% Basophils % 0.5% Nucleated Red Blood Cells % 0.0/100WBC Neutrophils # 5.410^3/ul Lymphocytes # 1.810^3/ul Monocytes # 0.410^3/ul Eosinophils # 0.310^3/ul Basophils # 0.010^3/ul Nucleated Red Blood Cells # 0.010^3/ul Prothrombin Time 12.9Sec Prothrombin Time Ratio 1.0 INR International Normalized Ratio 0.96 Activated Partial Thromboplast Time 31.9Sec Sodium Level 141mmol/L Potassium Level 4.5mmol/L Chloride Level 106mmol/L Carbon Dioxide Level 24mmol/L Anion Gap 16 Blood Urea Nitrogen 23mg/dl Creatinine 0.91mg/dl Glucose Level 106mg/dl Calcium Level 8.9mg/dl Total Bilirubin 0.1mg/dl Direct Bilirubin 0.00mg/dl Indirect Bilirubin 0.1mg/dl Aspartate Amino Transf (AST/SGOT) 22IU/L Alanine Aminotransferase (ALT/SGPT) 28IU/L Alkaline Phosphatase 53IU/L Troponin I 0.017ng/ml B-Type Natriuretic Peptide 9350PG/ML Total Protein 7.8g/dl Albumin 4.2g/dl Globulin 3.60g/dl Albumin/Globulin Ratio 1.16 Current Medications Medications (Trade) Dose Ordered Sig/Dimitrios Route PRN Reason Start Time Stop Time Status Last Admin Dose Admin Morphine Sulfate (morphine) 4 mg ONCE STAT IV 11/01/17 15:22 11/01/17 15:24 DC 11/01/17 15:36 Ondansetron HCl (Zofran Inj) 4 mg ONCE STAT IV 11/01/17 15:22 11/01/17 15:24 DC 11/01/17 15:34 Furosemide (Lasix) 60 mg ONCE STAT IV 11/01/17 15:22 11/01/17 15:24 DC 11/01/17 15:36 Procedures/MDM EKG: Rate/Rhythm: Will sinus rhythm, right axis deviation with nonspecific intraventricular block, inverted T waves in the inferior leads and V5 and V6 QRS, ST, QT: NORMAL IL, QRS, QT] Impression: Abnormal EKG PROCEDURE: Chest radiograph CLINICAL INDICATION: Chest Pain.. COMPARISON: Radiograph from 08/18/2017. TECHNIQUE: Single frontal chest radiograph. FINDINGS: Low lung volumes. The right diaphragm is elevated. Thickening of the right minor fissure which may represent loculated fluid or scar. Moderate pulmonary vascular congestion. No pleural effusion. Cardiomegaly with the atrial appendage clip. Aortic calcifications. Median sternotomy with fracture wires. No suspicious bone lesion. IMPRESSION: Cardiomegaly with mildly increased moderate pulmonary vascular congestion. RPTAT: PP Sayra Jonas Physician Date Time Electronically viewed and signed by Sayra Jonas Physician on 11/01/2017 16: 28 LG/ CC: ALCIDES ROSS DO Patient received intravenous Lasix and oxygen is doing much better he is not breathing normal respiratory rate has no shortness of breath at rest. Patient's heart failure symptoms is concerning for acute decompensation and will require inpatient workup and monitoring. Further w/u for ischemia, arrhythmia, PE or dissection will be deferred to the inpatient team. Accepting Care Team: Current data and ongoing care discussed. Time: Time of admission Primary Provider: daphne Consulting: [XOXOXO] Outstanding Data: none Departure Diagnosis: Primary Impression: CHF exacerbation Congestive heart failure type: unspecified congestive heart failure type Qualified Code: I50.9 - Acute on chronic congestive heart failure, unspecified congestive heart failure type Condition: Stable ALCIDES ROSS DO Nov 01, 2017 18:48
[2017-11-01] MEDS ORDERED: ONDANSETRON 4 MG INJ IV PRN ×2 (19:00→22:00)
[2017-11-01] MEDS ORDERED: ACETAMINOPHEN 325 MG TAB PO PRN ×2 (19:00→22:00)
[2017-11-01 19:09] VITALS: TEMP 98.1
[2017-11-01 19:49] VITALS: BP 125/85; RESP 20
[2017-11-01 20:00] VITALS: Ht 172.7 cm; Wt 79.7 kg
[2017-11-01 20:05] VITALS: PULSE 94
[2017-11-01] MEDS ORDERED: ZOLPIDEM 5 MG TAB PO PRN (22:00)
[2017-11-01] MEDS ORDERED: LORAZEPAM 1 MG TAB PO PRN (22:00)
[2017-11-01] MEDS ORDERED: HYDROCODONE/APAP (5/325) TAB PO PRN (22:00)
[2017-11-01 23:41] VITALS: BP 119/80; RESP 20
[2017-11-02] VITALS (11 sets, daily range): BP systolic 92–117; BP diastolic 55–78; PULSE 75–90; RESP 19–20
[2017-11-02] MEDS: PANTOPRAZOLE (EC) 40 MG TAB PO SCH (05:02)
[2017-11-02] MEDS: BUMETANIDE 1 MG TAB PO SCH ×2 (05:03→17:39)
[2017-11-02 06:09] LABS: BASOPHIL # 0.1 10^3/ul (0.0-0.1); BASOPHILS % 0.8 % (0.0-2.0); EOSINOPHILS # 0.3 10^3/ul (0.0-0.5); EOSINOPHILS % 2.9 % (0.0-7.0); HEMATOCRIT 32.5 % (42.0-52.0); HEMOGLOBIN 10.4 g/dl (14.0-18.0); LYMPHOCYTES # 1.8 10^3/ul (0.8-2.9); LYMPHOCYTES % 20.9 % (15.0-51.0); MEAN CORPUSCULAR HEMOGLOBIN 24.7 pg (29.0-33.0); MEAN CORPUSCULAR VOLUME 77.2 fl (82.0-101.0); MEAN PLATELET VOLUME 9.3 fl (7.4-10.4); MONOCYTE # 0.6 10^3/ul (0.3-0.9); MONOCYTES % 6.9 % (0.0-11.0); NEUTROPHIL # 5.9 10^3/ul (1.6-7.5); NEUTROPHILS % 68.2 % (39.0-77.0); PLATELET COUNT 346 10^3/UL (140-415); RED BLOOD COUNT 4.21 10^6/ul (4.70-6.10); RED CELL DISTRIBUTION WIDTH 16.9 % (11.5-14.5); WHITE BLOOD COUNT 8.6 10^3/ul (4.8-10.8)
[2017-11-02 06:42] LABS: CALCIUM 9.3 mg/dl (8.4-10.2); CREATININE 0.89 mg/dl (0.61-1.24); POTASSIUM 4.2 mmol/L (3.5-5.1)
[2017-11-02 06:49] LABS: TROPONIN-I 0.025 ng/ml (0.00-0.12)
[2017-11-02] MEDS: LISINOPRIL 5 MG TAB PO SCH (08:36)
[2017-11-02] MEDS: TIOTROPIUM 18 MCG CAPSULE INHA DEV INH SCH (08:37)
[2017-11-02] MEDS: SALMETEROL/FLUTICASONE 250/50 INHA INH SCH ×2 (08:37→20:06)
[2017-11-02] MEDS: SERTRALINE 50 MG TAB PO SCH (08:38)
[2017-11-02] MEDS: CLOPIDOGREL 75 MG TAB PO SCH (08:39)
[2017-11-02] MEDS: FINASTERIDE 5 MG TAB PO SCH (08:39)
[2017-11-02] MEDS: ASCORBIC ACID 500 MG TAB PO SCH (08:39)
[2017-11-02] MEDS: SPIRONOLACTONE 25 MG TAB PO SCH (08:39)
[2017-11-02] MEDS: FERROUS SULFATE (EC) 325 MG TAB PO SCH ×2 (08:39→20:07)
[2017-11-02] MEDS: POTASSIUM CHLORIDE (SR) 20 MEQ TAB PO SCH (08:40)
[2017-11-02] MEDS: ASPIRIN (EC) 81 MG TAB PO SCH (08:40)
[2017-11-02] MEDS: NICOTINE (21 MG/24 HR) PATCH TRANSDERM SCH (08:40)
--- NOTE | 2017-11-02 12:12 | HP ---
Date/Time of Note Date/Time of Note DATE: 11/02/17 TIME: 11:23 Assessment/Plan VTE Prophylaxis VTE Prophylaxis Intervention: SCD's Lines/Catheters IV [facility]atheter Type (from [facility]): Saline Lock Urinary Cath still in place: No Assessment/Plan Assessment/Plan 66-year-old male with 1. Acute on chronic hypoxemia, likely multifactorial secondary to COPD exacerbation as the patient is still smoking and had an episode of URI and also mild CHF exacerbation. Of note patient is oxygen dependent, 2-3 L at home due to underlying chronic respiratory insufficiency and congestive heart failure. Continue current diuretic therapy Continue inhalers including Advair and Spiriva, will add Xopenex scheduled and as needed. Continue supplemental oxygen, patient chronically on 2-3 L nasal cannula. Repeat chest x-ray in a.m., discharge planning in the next 24 hours. 2. Mild congestive heart failure exacerbation, patient with known ischemic cardiomyopathy ejection fraction of 20%, has been admitted here at [facility] almost monthly for the past 4 months, he is status post bypass surgery a few months ago. Continue Bumex and will consider adding Aldactone, repeat chest x-ray in a.m., replete electrolytes as needed Patient also on digoxin currently, unclear if had previous atrial fibrillation or not. 3. Severe coronary artery disease, status post coronary artery bypass surgery, ischemic cardiomyopathy with systolic dysfunction, ejection fraction of 20%. Patient did have episodes of nonsustained V. tach on previous admissions. Will monitor on this admission. Continue diuresis and current cardiac medications. Replete electrolytes as needed. 4. Chronic obstructive pulmonary disease, tobacco user, still smoking. Chronic hypoxemia, on 2 to 3 L nasal cannula at home. Continue Advair and Spiriva along with Duonebs as needed. Smoking cessation, patient agreeable with nicotine patch. 5. Hyperlipidemia: Continue statin therapy 6. Benign prostatic hypertrophy: Continue home medications. 7. Gastroesophageal reflux disease: Continue Protonix. 8. Major depressive disorder: Continue home medications. Prophylaxis: Protonix for GI prophylaxis, SCDs for DVT prophylaxis Disposition: Continue diuresis. Supplemental oxygen, nebulizer treatments, strict I's and O's. Chest x-ray in a.m. Discharge planning in the next 24 hours hopefully. HPI/ROS Admit Date/Time Admit Date/Time Nov 01, 2017 at 18:44 Hx of Present Illness Chief complaint: Respiratory distress for 2 days History of presenting illness: 66-year-old male with known history of COPD, tobacco use, coronary artery disease status post CABG, ischemic cardiomyopathy with EF of 20% with multiple admissions with congestive heart failure exacerbation who presented the emergency department with complaint of shortness of breath and respiratory distress for 2 days. Patient feels better this morning after getting nebulizer treatment and diuretics overnight. He does have chronic hypoxemia he is oxygen dependent 2-3 L nasal cannula. He still smoking tobacco, 2-3 cigarettes a day. He reports that 2 days ago he had a upper respiratory infection with cough and subjective fevers, subsequently he has been having some respiratory distress despite being on oxygen at home. It is suspicious that the patient is likely noncompliant with his supplemental oxygen as he is still smoking. He claims he does use his inhalers which is suspicious also. We will arrange for nebulizer treatment along with continue supplemental oxygen. He denies any chest pain, nausea, vomiting. He denies any lower extremity edema and there is none seen. He reports being compliant with all his medications. He is likely to be discharged in the next 24 hours. ROS Constitutional: no complaints Eyes: no complaints ENT: no complaints Respiratory: cough (Occasional), shortness of breath Cardiovascular: no complaints Gastrointestinal: no complaints Genitourinary: no complaints Musculoskeletal: no complaints Skin: no complaints Neurologic: no complaints Endocrine: no complaints Psychological: no complaints Immunologic: no complaints PMH/Family/Social Past Medical History Chronic artery disease, status post coronary artery bypass surgery a 3 to 4 months ago Ischemic cardiomyopathy with EF 20 % Congestive heart failure ejection fraction 20%, chronic systolic dysfunction Chronic hypoxemia, 2 to 3 L nasal cannula at home COPD Hypertension Hyperlipidemia Tobacco use BPH GERD Major depressive disorder Past Surgical History Past Surgical Hx: angioplasty, coronary bypass surgery (3-4 months ago) Social History Alcohol Use: none Smoking Status: Current every day smoker (2-3 cigarettes a day, likely to smoke more.) 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 Use: 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) Exam/Review of Systems Vital Signs Vitals Vital Signs Date Time Temp Pulse Resp B/P Pulse Ox O2 Delivery O2 Flow Rate FiO2 11/02/17 11:20 97.5 83 19 92/55 96 11/02/17 09:00 Nasal Cannula 2.0 Intake and Output 11/01/17 11/01/17 11/02/17 14:59 22:59 06:59 Intake Total 400 ml Output Total 950 ml Balance -550 ml Exam Constitutional: alert, oriented, well developed Respiratory: clear to auscultation, other (On 2-3 L nasal cannula chronically, no wheezing) Cardiovascular: nl pulses, regular rate and rhythm Gastrointestinal: non-tender, soft Musculoskeletal: nl extremities to inspection, nl gait and stance Extremities: normal pulses, other (No edema, clubbing or cyanosis) 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: AVIATION NEUROPSYCHOLOGIST II-XII intact, nl mental status, nl speech, nl strength Labs Result Diagram: 11/02/1754011/02/1741 Medications Medications Current Medications Ascorbic Acid (Vitamin C) 500 mg DAILY PO Last administered on 11/02/17 08:39 ; Admin Dose 500 MG; Start 11/02/17 at 09:00 Aspirin (Halfprin) 81 mg DAILY PO Last administered on 11/02/17 08:40; Admin Dose 81 MG; Start 11/02/17 at 09:00 Atorvastatin Calcium (Lipitor) 80 mg DAILY@21 PO ; Start 11/02/17 at 21:00 Carvedilol (Coreg) 6.25 mg BID PO Last administered on 11/01/17 22:25; Admin Dose 6.25 MG; Start 11/01/17 at 22:00 Clopidogrel Bisulfate (plaVIX) 75 mg DAILY PO Last administered on 11/02/17 08 :39; Admin Dose 75 MG; Start 11/02/17 at 09:00 Digoxin (Digoxin) 0.125 mg 13 PO ; Start 11/02/17 at 13:00 Ferrous Sulfate (Ferrous Sulfate (Ec)) 325 mg BID PO Last administered on 08:39; Admin Dose 325 MG; Start 11/02/17 at 09:00 Finasteride (Proscar) 5 mg DAILY PO Last administered on 11/02/17 08:39; Admin Dose 5 MG; Start 11/02/17 at 09:00 Lisinopril (Zestril) 2.5 mg DAILY PO ; Start 11/02/17 at 09:00 Pantoprazole (Protonix Tab) 40 mg DAILY@06 PO Last administered on 11/02/17 05 :02; Admin Dose 40 MG; Start 11/02/17 at 06:00 Potassium Chloride (Klor-Con 20) 20 meq DAILY PO Last administered on 08:40; Admin Dose 20 MEQ; Start 11/02/17 at 09:00 Salmeterol Xinafoate/ Fluticasone (Advair 250/50 Diskus) 1 inh BID INH Last administered on 11/02/17 08:37; Admin Dose 1 INH; Start 11/02/17 at 09:00 Sertraline HCl (Zoloft) 50 mg DAILY PO Last administered on 11/02/17 08:38; Admin Dose 50 MG; Start 11/02/17 at 09:00 Spironolactone (Aldactone) 25 mg DAILY PO Last administered on 11/02/17 08:39 ; Admin Dose 25 MG; Start 11/02/17 at 09:00 Tamsulosin HCl (Flomax) 0.4 mg HS PO ; Start 11/02/17 at 21:00 Tiotropium [place] (Spiriva) 1 inh DAILY INH Last administered on 11/02/17 08: 37; Admin Dose 1 INH; Start 11/02/17 at 09:00 Nicotine (Nicoderm 21 Mg/ 24hr) 1 patch DAILY TRANSDERM Last administered on 08:40; Admin Dose 1 PATCH; Start 11/02/17 at 09:00 Lorazepam (Ativan) 1 mg Q6H PRN PO ANXIETY; Start 11/01/17 at 22:00 Zolpidem Tartrate (Ambien) 5 mg HS PRN PO INSOMNIA; Start 11/01/17 at 22:00 Acetaminophen (Tylenol Tab) 650 mg Q4H PRN PO PAIN AND OR ELEVATED TEMP; Start 11/01/17 at 22:00 Ondansetron HCl (Zofran Inj) 4 mg Q6H PRN IV NAUSEA AND/OR VOMITING; Start 11/01/17 at 22:00 Acetaminophen/ Hydrocodone Bitart ([place] (5/325)) 1 tab Q6 PRN PO PAIN LEVEL 4- 7; Start 11/02/17 at 06:00 Procedures Procedures PROCEDURE: Chest radiograph CLINICAL INDICATION: Chest Pain.. COMPARISON: Radiograph from 08/18/2017. TECHNIQUE: Single frontal chest radiograph. FINDINGS: Low lung volumes. The right diaphragm is elevated. Thickening of the right minor fissure which may represent loculated fluid or scar. Moderate pulmonary vascular congestion. No pleural effusion. Cardiomegaly with the atrial appendage clip. Aortic calcifications. Median sternotomy with fracture wires. No suspicious bone lesion. IMPRESSION: Cardiomegaly with mildly increased moderate pulmonary vascular congestion. RPTAT: PP Physician Marva Date Time Electronically viewed and signed by Sayra Jonas Physician on 11/01/2017 16: 28 EKG: Normal sinus rhythm, no acute changes seen. DEE BERNABE Nov 02, 2017 11:33
[2017-11-02] MEDS: DIGOXIN 0.125 MG TAB PO SCH (13:05)
[2017-11-02] MEDS: LEVALBUTEROL (NEB) 0.63 MG/3 ML AMP HHN SCH (16:15)
[2017-11-02] MEDS: LEVALBUTEROL (NEB) 0.63 MG/3 ML AMP HHN PRN (19:11)
[2017-11-02] MEDS ORDERED: TAMSULOSIN (SR) 0.4 MG CAP PO SCH (21:00)
[2017-11-02] MEDS ORDERED: ATORVASTATIN 80 MG TAB PO SCH (21:00)
[2017-11-02] MEDS: HYDROCODONE/APAP (5/325) TAB PO PRN (23:05)
[2017-11-03] VITALS (9 sets, daily range): BP systolic 90–108; BP diastolic 52–69; PULSE 75–80; RESP 17–20
[2017-11-03] MEDS: LEVALBUTEROL (NEB) 0.63 MG/3 ML AMP HHN SCH ×2 (01:06→09:07)
[2017-11-03] MEDS: LEVALBUTEROL (NEB) 0.63 MG/3 ML AMP HHN PRN (05:27)
[2017-11-03] MEDS: BUMETANIDE 1 MG TAB PO SCH (05:48)
[2017-11-03] MEDS: PANTOPRAZOLE (EC) 40 MG TAB PO SCH (05:48)
[2017-11-03] MEDS: HYDROCODONE/APAP (5/325) TAB PO PRN (05:48)
[2017-11-03 06:44] LABS: BASOPHIL # 0.1 10^3/ul (0.0-0.1); BASOPHILS % 0.9 % (0.0-2.0); EOSINOPHILS # 0.2 10^3/ul (0.0-0.5); EOSINOPHILS % 2.7 % (0.0-7.0); HEMATOCRIT 33.3 % (42.0-52.0); HEMOGLOBIN 10.7 g/dl (14.0-18.0); LYMPHOCYTES # 1.7 10^3/ul (0.8-2.9); LYMPHOCYTES % 21.5 % (15.0-51.0); MEAN CORPUSCULAR HEMOGLOBIN 24.9 pg (29.0-33.0); MEAN CORPUSCULAR HGB CONC 32.1 g/dl (32.0-37.0); MEAN CORPUSCULAR VOLUME 77.6 fl (82.0-101.0); MEAN PLATELET VOLUME 9.5 fl (7.4-10.4); MONOCYTE # 0.5 10^3/ul (0.3-0.9); NEUTROPHIL # 5.3 10^3/ul (1.6-7.5); NEUTROPHILS % 68.4 % (39.0-77.0); PLATELET COUNT 317 10^3/UL (140-415); RED BLOOD COUNT 4.29 10^6/ul (4.70-6.10); RED CELL DISTRIBUTION WIDTH 16.8 % (11.5-14.5); WHITE BLOOD COUNT 7.8 10^3/ul (4.8-10.8)
[2017-11-03 07:11] LABS: ALBUMIN 3.9 g/dl (3.3-4.9); ALBUMIN/GLOBULIN RATIO 1.21; BILIRUBIN,INDIRECT 0.3 mg/dl (0-1.1); BILIRUBIN,TOTAL 0.3 mg/dl (0.2-1.3); CREATININE 0.93 mg/dl (0.61-1.24); POTASSIUM 4.1 mmol/L (3.5-5.1); TOTAL PROTEIN 7.1 g/dl (6.1-8.1)
[2017-11-03 07:18] LABS: MAGNESIUM 1.9 mg/dl (1.7-2.5); PHOSPHORUS 4.2 mg/dl (2.5-4.9)
[2017-11-03] MEDS: FERROUS SULFATE (EC) 325 MG TAB PO SCH (08:35)
[2017-11-03] MEDS: CLOPIDOGREL 75 MG TAB PO SCH (08:35)
[2017-11-03] MEDS: TIOTROPIUM 18 MCG CAPSULE INHA DEV INH SCH (08:35)
[2017-11-03] MEDS: SPIRONOLACTONE 25 MG TAB PO SCH (08:35)
[2017-11-03] MEDS: NICOTINE (21 MG/24 HR) PATCH TRANSDERM SCH (08:36)
[2017-11-03] MEDS: FINASTERIDE 5 MG TAB PO SCH (08:36)
[2017-11-03] MEDS: ASPIRIN (EC) 81 MG TAB PO SCH (08:36)
[2017-11-03] MEDS: POTASSIUM CHLORIDE (SR) 20 MEQ TAB PO SCH (08:36)
[2017-11-03] MEDS: SERTRALINE 50 MG TAB PO SCH (08:36)
[2017-11-03] MEDS: ASCORBIC ACID 500 MG TAB PO SCH (08:36)
[2017-11-03] MEDS: SALMETEROL/FLUTICASONE 250/50 INHA INH SCH (08:38)
[2017-11-03] MEDS: LISINOPRIL 5 MG TAB PO SCH (08:40)
--- NOTE | 2017-11-03 12:10 | PN ---
Date/Time of Note Date/Time of Note DATE: 11/03/17 TIME: 12:02 Assessment/Plan VTE Prophylaxis VTE Prophylaxis Intervention: SCD's Lines/Catheters IV [facility]ter [facility] (from [facility]): Saline Lock Urinary Cath still in place: No Assessment/Plan Assessment/Plan 66-year-old male with 1. Acute on chronic hypoxemia, likely multifactorial secondary to COPD exacerbation as the patient is still smoking and had an episode of URI and also mild CHF exacerbation. Of note patient is oxygen dependent, 2-3 L at home due to underlying chronic respiratory insufficiency and congestive heart failure. Continue current diuretic therapy, nebulizer treatment were added, patient getting it and feels better with Xopenex. He will get a prescription for it. Continue inhalers including Advair and Spiriva. Continue supplemental oxygen, patient chronically on 2-3 L nasal cannula. Be resumed at home. Discharge home today with home health RN and nebulizer machine for home. 2. Mild congestive heart failure exacerbation, patient with known ischemic cardiomyopathy ejection fraction of 20%, has been admitted here at [facility] almost monthly for the past 4 months, he is status post bypass surgery a few months ago. Continue Bumex and will consider adding Aldactone, repeat chest x-ray in a.m., replete electrolytes as needed Patient also on digoxin currently, unclear if had previous atrial fibrillation or not. 3. Severe coronary artery disease, status post coronary artery bypass surgery, ischemic cardiomyopathy with systolic dysfunction, ejection fraction of 20%. No arrhythmia noted on this admission. Continue diuresis and current cardiac medications. 4. Chronic obstructive pulmonary disease, tobacco user, still smoking. Chronic hypoxemia, on 2 to 3 L nasal cannula at home. Continue Advair and Spiriva along with Xopenex as needed. Smoking cessation, patient agreeable with nicotine patch. 5. Hyperlipidemia: Continue statin therapy 6. Benign prostatic hypertrophy: Continue home medications. 7. Gastroesophageal reflux disease: Continue Protonix. 8. Major depressive disorder: Continue home medications. Prophylaxis: Protonix for GI prophylaxis, SCDs for DVT prophylaxis Disposition: Continue diuresis. Supplemental oxygen, nebulizer machine for home , discharge plan home today with follow-up with primary care physician, cardiology and home health RN checks. Subjective 24 Hr Interval Summary Free Text/Dictation Patient feels better, he is on 2 L nasal cannula which is his baseline oxygen requirement. He reports improvement after Xopenex nebulizer, he will get a nebulizer machine for home along with prescription for Xopenex. 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 Exam/Review of Systems Vital Signs Vitals Vital Signs Date Time Temp Pulse Resp B/P Pulse Ox O2 Delivery O2 Flow Rate FiO2 11/03/17 11:28 97.9 78 17 90/52 100 11/03/17 09:07 Nasal Cannula 3.0 Intake and Output 11/02/17 11/02/17 11/03/17 15:00 23:00 07:00 Intake Total 800 ml 550 ml Output Total 750 ml Balance 800 ml -200 ml Exam Constitutional: alert, oriented, well developed Respiratory: clear to auscultation, normal air movement Cardiovascular: nl pulses, regular rate and rhythm Gastrointestinal: non-tender, soft Musculoskeletal: nl extremities to inspection, nl gait and stance Extremities: normal pulses 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: QA REVIEWER II-XII intact, nl mental status, nl speech, nl strength Results Result Diagram: 11/03/17 0552 11/03/17 0552 Results 24 hrs Laboratory Tests Test 11/03/17 05:52 White Blood Count 7.8 Red Blood Count 4.29 L Hemoglobin 10.7 L Hematocrit 33.3 L Mean Corpuscular Volume 77.6 L Mean Corpuscular Hemoglobin 24.9 L Mean Corpuscular Hemoglobin Concent 32.1 Red Cell Distribution Width 16.8 H Platelet Count 317 Mean Platelet Volume 9.5 Neutrophils % 68.4 Lymphocytes % 21.5 Monocytes % 6.0 Eosinophils % 2.7 Basophils % 0.9 Nucleated Red Blood Cells % 0.0 Neutrophils # 5.3 Lymphocytes # 1.7 Monocytes # 0.5 Eosinophils # 0.2 Basophils # 0.1 Nucleated Red Blood Cells # 0.0 Sodium Level 138 Potassium Level 4.1 Chloride Level 102 Carbon Dioxide Level 28 Anion Gap 12 Blood Urea Nitrogen 27 H Creatinine 0.93 Glucose Level 132 Calcium Level 9.0 Phosphorus Level 4.2 Magnesium Level 1.9 Total Bilirubin 0.3 Direct Bilirubin 0.00 Indirect Bilirubin 0.3 Aspartate Amino Transf (AST/SGOT) 19 Alanine Aminotransferase (ALT/SGPT) 27 Alkaline Phosphatase 50 Total Protein 7.1 Albumin 3.9 Globulin 3.20 Albumin/Globulin Ratio 1.21 Medications Medications Current Medications Ascorbic Acid (Vitamin C) 500 mg DAILY PO Last administered on 11/03/17 08:36 ; Admin Dose 500 MG; Start 11/02/17 at 09:00 Aspirin (Halfprin) 81 mg DAILY PO Last administered on 11/03/17 08:36; Admin Dose 81 MG; Start 11/02/17 at 09:00 Atorvastatin Calcium (Lipitor) 80 mg DAILY@21 PO Last administered on 20:07; Admin Dose 80 MG; Start 11/02/17 at 21:00 Carvedilol (Coreg) 6.25 mg BID PO Last administered on 11/03/17 08:36; Admin Dose 6.25 MG; Start 11/01/17 at 22:00 Clopidogrel Bisulfate (plaVIX) 75 mg DAILY PO Last administered on 11/03/17 08 :35; Admin Dose 75 MG; Start 11/02/17 at 09:00 Digoxin (Digoxin) 0.125 mg 13 PO Last administered on 11/02/17 13:05; Admin Dose 0.125 MG; Start 11/02/17 at 13:00 Ferrous Sulfate (Ferrous Sulfate (Ec)) 325 mg BID PO Last administered on 08:35; Admin Dose 325 MG; Start 11/02/17 at 09:00 Finasteride (Proscar) 5 mg DAILY PO Last administered on 11/03/17 08:36; Admin Dose 5 MG; Start 11/02/17 at 09:00 Lisinopril (Zestril) 2.5 mg DAILY PO ; Start 11/02/17 at 09:00 Pantoprazole (Protonix Tab) 40 mg DAILY@06 PO Last administered on 11/03/17 05 :48; Admin Dose 40 MG; Start 11/02/17 at 06:00 Potassium Chloride (Klor-Con 20) 20 meq DAILY PO Last administered on 08:36; Admin Dose 20 MEQ; Start 11/02/17 at 09:00 Salmeterol Xinafoate/ Fluticasone (Advair 250/50 Diskus) 1 inh BID INH Last administered on 11/03/17 08:38; Admin Dose 1 INH; Start 11/02/17 at 09:00 Sertraline HCl (Zoloft) 50 mg DAILY PO Last administered on 11/03/17 08:36; Admin Dose 50 MG; Start 11/02/17 at 09:00 Spironolactone (Aldactone) 25 mg DAILY PO Last administered on 11/03/17 08:35 ; Admin Dose 25 MG; Start 11/02/17 at 09:00 Tamsulosin HCl (Flomax) 0.4 mg HS PO Last administered on 11/02/17 20:07; Admin Dose 0.4 MG; Start 11/02/17 at 21:00 Tiotropium [place] (Spiriva) 1 inh DAILY INH Last administered on 11/03/17 08: 35; Admin Dose 1 INH; Start 11/02/17 at 09:00 Nicotine (Nicoderm 21 Mg/ 24hr) 1 patch DAILY TRANSDERM Last administered on 08:36; Admin Dose 1 PATCH; Start 11/02/17 at 09:00 Lorazepam (Ativan) 1 mg Q6H PRN PO ANXIETY Last administered on 11/02/17 20:07 ; Admin Dose 1 MG; Start 11/01/17 at 22:00 Zolpidem Tartrate (Ambien) 5 mg HS PRN PO INSOMNIA Last administered on 21:22; Admin Dose 5 MG; Start 11/01/17 at 22:00 Acetaminophen (Tylenol Tab) 650 mg Q4H PRN PO PAIN AND OR ELEVATED TEMP; Start 11/01/17 at 22:00 Ondansetron HCl (Zofran Inj) 4 mg Q6H PRN IV NAUSEA AND/OR VOMITING; Start 11/01/17 at 22:00 Acetaminophen/ Hydrocodone Bitart ([place] (5/325)) 1 tab Q6 PRN PO PAIN LEVEL 4- 7 Last administered on 11/03/17 05:48; Admin Dose 1 TAB; Start 11/02/17 at 06: 00 DEE BERNABE Nov 03, 2017 12:10
--- NOTE | 2017-11-03 12:11 | PDOCDIS ---
Discharge Instructions CONDITION Patient Condition: Stable HOME CARE INSTRUCTIONS: Special Diet: CARDIAC DIET ACTIVITY: Activity Restrictions: Slowly Increase Activity FOLLOW UP/APPOINTMENTS Follow-up Plan Follow-up with home health RN Follow-up with primary care physician within 1 week Follow-up with cardiology, outpatient, within 2-4 weeks Resume home oxygen and patient again advised to quit smoking. DEE BERNABE Nov 03, 2017 12:11
[2017-11-03] MEDS ORDERED: NICO1PAT6 TRANSDERM (12:12)
[2017-11-03] MEDS ORDERED: LEVA0.634 HHN (12:12)
[2017-11-03] MEDS: DIGOXIN 0.125 MG TAB PO SCH (12:42)
--- NOTE | 2017-11-03 14:23 | RADRPT ---
PROCEDURE: Chest x-ray CLINICAL INDICATION: Congestive heart failure TECHNIQUE: Chest single view COMPARISON: 11/01/2017 FINDINGS: As before there post CABG changes. Stable cardiomegaly and atherosclerotic aortic calcification is s een. There is ongoing but significantly improved interstitial vascular congestion. Costophrenic angl es are sharp. Old fracture deformities noted of the right proximal humerus IMPRESSION: Cardiomegaly with ongoing but improving CHF RPTAT: HH .Brenton Shelton MD, MD Date Time Electronically viewed and signed by .Brenton Shelton MD, on 11/03/2017 14:23 .W/
--- NOTE | 2017-11-03 16:16 | DS ---
Date/Time of Note Date/Time of Note DATE: 11/03/17 TIME: 16:11 Discharge Summary Admission/Discharge Info Admit Date/Time Nov 01, 2017 at 18:44 Discharge Date/Time Nov 03, 2017 at 14:30 Discharge Diagnosis 1. Acute on chronic hypoxemia, likely multifactorial secondary to COPD exacerbation and mild CHF exacerbation. 2. Mild congestive heart failure exacerbation, acute on chronic systolic dysfunction. 3. Severe coronary artery disease, status post coronary artery bypass surgery, ischemic cardiomyopathy with systolic dysfunction, ejection fraction of 20%. 4. Chronic obstructive pulmonary disease, tobacco user. 5. Hyperlipidemia 6. Benign prostatic hypertrophy 7. Gastroesophageal reflux disease 8. Major depressive disorder Patient Condition: Stable Consults None Procedures None Hx of Present Illness Chief complaint: Respiratory distress for 2 days History of presenting illness: 66-year-old male with known history of COPD, tobacco use, coronary artery disease status post CABG, ischemic cardiomyopathy with EF of 20% with multiple admissions with congestive heart failure exacerbation who presented the emergency department with complaint of shortness of breath and respiratory distress for 2 days. Patient feels better this morning after getting nebulizer treatment and diuretics overnight. He does have chronic hypoxemia he is oxygen dependent 2-3 L nasal cannula. He still smoking tobacco, 2-3 cigarettes a day. He reports that 2 days ago he had a upper respiratory infection with cough and subjective fevers, subsequently he has been having some respiratory distress despite being on oxygen at home. It is suspicious that the patient is likely noncompliant with his supplemental oxygen as he is still smoking. He claims he does use his inhalers which is suspicious also. We will arrange for nebulizer treatment along with continue supplemental oxygen. He denies any chest pain, nausea, vomiting. He denies any lower extremity edema and there is none seen. He reports being compliant with all his medications. He is likely to be discharged in the next 24 hours. Hospital Course Repeat chest patient was kept on his outpatient diuretics, his volume status is fairly stable. Repeat chest x-ray today showing improvement of his CHF, also patient seems to be feeling better with Xopenex nebulizer treatments, respiratory status much improved, he is on 2 L nasal cannula and satting above 92%. He is back to his baseline therefore he will be discharged home today. Patient is advised to be compliant with his outpatient medications which have been reviewed and appropriate for his current diagnosis. Also home health RN to be arranged to visit patient at home along with a nebulizer machine for home nebulizer treatment. Patient has been discharged home in stable condition and back to baseline. I have told him he needs to follow-up with his primary care physician and also with cardiology in a timely manner within 1-2 weeks. Patient needs to quit smoking, despite his current conditions and chronic hypoxemia requiring oxygen, he still smoking tobacco at home. Home Meds Active Scripts Nicotine* (Nicotine* Patch) 21 mg/day Patch, 1 PATCH TRANSDERM DAILY for 30 Days Prov:DEE BERNABE 11/03/17 Levalbuterol Hcl* (Levalbuterol Hcl*) 0.63 Mg/3 Ml Vial.neb, 0.63 MG HHN Q8H RESP THERAPY for 30 Days, 3 Refills Prov:DEE BERNABE 11/03/17 Bumetanide* (Bumetanide*) 1 Mg Tablet, 1 MG PO BID DIURETICS for 30 Days, TAB 3 Refills Prov:DEE BERNABE 09/13/17 Spironolactone* (Aldactone*) 25 Mg Tablet, 25 MG PO DAILY for 30 Days, TAB 3 Refills Prov:DEE BERNABE 09/13/17 Lisinopril* (Lisinopril*) 2.5 Mg Tablet, 2.5 MG PO DAILY, #30 TAB 3 Refills Prov:DEE BERNABE 07/08/17 Digoxin* (Digitek*) 125 Mcg Tablet, 0.125 MG PO QHS for 30 Days, TAB 3 Refills Prov:DEE BERNABE 07/08/17 Carvedilol* (Carvedilol*) 6.25 Mg Tablet, 6.25 MG PO BID for 30 Days, TAB 3 Refills Prov:DEE BERNABE 07/08/17 Aspirin* (Aspirin* EC) 81 Mg Tablet.dr, 81 MG PO DAILY for 30 Days, 3 Refills Prov:DEE BERNABE 07/08/17 Potassium Chloride* (Potassium Chloride*) 20 Meq Tablet.er, 20 MEQ PO DAILY for 30 Days, TAB.SA Prov:DEE BERNABE 07/08/17 Salmeterol Xinaf/Fluticasone* (Advair*) 250-50 Diskus Inhaler, 1 INH INH BID, # 1 INHALER 3 Refills Prov:DEE BERNABE 07/08/17 Tiotropium [place]* (Spiriva*) 18 Mcg Cap.w.dev, 1 INH INH DAILY, #1 INHALER 3 Refills Prov:DEE BERNABE 07/08/17 Pantoprazole* (Pantoprazole*) 40 Mg Tablet.dr, 40 MG PO DAILY for 30 Days, 3 Refills Prov:EDE BERNABE 07/08/17 Clopidogrel Bisulfate (Clopidogrel) 75 Mg Tablet, 75 MG PO DAILY for 30 Days, TAB 3 Refills Prov:DEE BERNABE 07/08/17 Tamsulosin Hcl* (Flomax*) 0.4 Mg Cap.er.24h, 0.4 MG PO HS for 1 Day, CAP Prov:TAYLOR TSANG MD 09/09/16 Sertraline Hcl* (Sertraline Hcl*) 50 Mg Tablet, 50 MG PO DAILY for 1 Day, TAB Prov:TAYLOR TSANG MD 09/09/16 Hydrocodone Bit-Acetaminophen (Hydrocodone Bit-APAP) 5-325MG Tablet, 1 TAB PO Q3H Y for PAIN LEVEL 1-3 for 1 Day, TAB Prov:TAYLOR TSANG MD 09/09/16 Finasteride* (Finasteride*) 5 Mg Tablet, 5 MG PO DAILY for 1 Day, TAB Prov:TAYLOR TSANG MD 09/09/16 Ferrous Sulfate* (Ferrous Sulfate*) 325 Mg Tabec, 325 MG PO DAILY for 1 Day, TAB Prov:TAYLOR TSANG MD 09/09/16 Atorvastatin* (Atorvastatin*) 80 Mg Tablet, 80 MG PO DAILY@21 for 1 Day, TAB Prov:TAYLOR TSANG MD 09/09/16 Ascorbic Acid (Vitamin C) 500 Mg Tab, 500 MG PO DAILY for 1 Day, TAB Prov:TAYLOR TSANG MD 09/09/16 Follow-up Plan Follow-up with home health RN Follow-up with primary care physician within 1 week Follow-up with cardiology, outpatient, within 2-4 weeks Resume home oxygen and patient again advised to quit smoking. Primary Care Provider Lesley Huang Time spent on discharge: > 30 minutes Pending Labs Laboratory Tests Test 11/03/17 05:52 White Blood Count 7.810^3/ul (4.8-10.8) Red Blood Count 4.2910^6/ul (4.70-6.10) Hemoglobin 10.7g/dl (14.0-18.0) Hematocrit 33.3% (42.0-52.0) Mean Corpuscular Volume 77.6fl (82.0-101.0) Mean Corpuscular Hemoglobin 24.9pg (29.0-33.0) Mean Corpuscular Hemoglobin Concent 32.1g/dl (32.0-37.0) Red Cell Distribution Width 16.8% (11.5-14.5) Platelet Count 74434^3/UL (140-415) Mean Platelet Volume 9.5fl (7.4-10.4) Neutrophils % 68.4% (39.0-77.0) Lymphocytes % 21.5% (15.0-51.0) Monocytes % 6.0% (0.0-11.0) Eosinophils % 2.7% (0.0-7.0) Basophils % 0.9% (0.0-2.0) Nucleated Red Blood Cells % 0.0/100WBC (0.0-0.0) Neutrophils # 5.310^3/ul (1.6-7.5) Lymphocytes # 1.710^3/ul (0.8-2.9) Monocytes # 0.510^3/ul (0.3-0.9) Eosinophils # 0.210^3/ul (0.0-0.5) Basophils # 0.110^3/ul (0.0-0.1) Nucleated Red Blood Cells # 0.010^3/ul (0.0-0.0) Sodium Level 138mmol/L (135-144) Potassium Level 4.1mmol/L (3.5-5.1) Chloride Level 102mmol/L (97-110) Carbon Dioxide Level 28mmol/L (21-31) Anion Gap 12 (8-16) Blood Urea Nitrogen 27mg/dl (7-20) Creatinine 0.93mg/dl (0.61-1.24) Glucose Level 132mg/dl (70-220) Calcium Level 9.0mg/dl (8.4-10.2) Phosphorus Level 4.2mg/dl (2.5-4.9) Magnesium Level 1.9mg/dl (1.7-2.5) Total Bilirubin 0.3mg/dl (0.2-1.3) Direct Bilirubin 0.00mg/dl (0.00-0.20) Indirect Bilirubin 0.3mg/dl (0-1.1) Aspartate Amino Transf (AST/SGOT) 19IU/L (15-46) Alanine Aminotransferase (ALT/SGPT) 27IU/L (13-69) Alkaline Phosphatase 50IU/L (42-121) Total Protein 7.1g/dl (6.1-8.1) Albumin 3.9g/dl (3.3-4.9) Globulin 3.20g/dl (1.3-3.2) Albumin/Globulin Ratio 1.21 DEE BERNABE Nov 03, 2017 16:15
== END 2017-11-03 14:30 | disposition home health service (06) | DRG 190 ==
LOC: E/R 14:54 → TEL 18:44
PROVIDERS: ADMIT Internal Medicine; ATTEND Internal Medicine
DX: J44.1 Chronic obstructive pulmonary disease with (acute) exacerbation (principal); I50.23 Acute on chronic systolic (congestive) heart failure; I11.0 Hypertensive heart disease with heart failure; Z95.1 Presence of aortocoronary bypass graft; Z99.81 Dependence on supplemental oxygen; F17.210 Nicotine dependence, cigarettes, uncomplicated; I25.10 Atherosclerotic heart disease of native coronary artery without angina pectoris; I25.5 Ischemic cardiomyopathy; E78.5 Hyperlipidemia, unspecified; R09.02 Hypoxemia; N40.0 Benign prostatic hyperplasia without lower urinary tract symptoms; K21.9 Gastro-esophageal reflux disease without esophagitis; F32.9 Major depressive disorder, single episode, unspecified; Z96.641 Presence of right artificial hip joint; Z91.19 Patient's noncompliance with other medical treatment and regimen; Z79.82 Long term (current) use of aspirin
CPT/HCPCS: 36415; 71010; 71020; 80048; 80053; 83735; 83880; 84100; 84484; 85025; 85610; 85730; 93005; 94640; 94664; 96374; 96375; J1940; J2270; J2405

== ENCOUNTER 2017-12-20 06:54 | Inpatient (IN) | END 2017-12-21 11:50 | disposition left against medical advice (07) | DRG 291 ==

== ENCOUNTER 2018-02-25 16:51 | Inpatient (IN) | END 2018-02-27 11:00 | disposition home or self-care (01) | DRG 291 ==

== ENCOUNTER 2018-07-25 17:31 | Emergency (ER) | END 2018-07-25 22:10 | disposition short-term general hospital (02) ==

== ENCOUNTER 2018-08-28 13:29 | Emergency (ER) | END 2018-08-28 22:02 | disposition short-term general hospital (02) ==

== ENCOUNTER 2018-09-23 22:35 | Emergency (ER) | END 2018-09-24 04:40 | disposition short-term general hospital (02) ==

== ENCOUNTER 2018-12-15 11:35 | Observation (INO) | payer OTHER ==
[~2018-12-15] VITALS: Ht 175.3 cm; Wt 84.8 kg
[~2018-12-15 11:35] MED LIST changes: -ADV25050 INH; +ALBU18HF INHALATION; +ALBU2.5V3 NEB; -ASC500 PO; -ASPI-664 PO; +ASPI-817 PO; +ATOR40TA68 PO; -ATOR80TA75 PO; +ATRO INHALATION; +BUME1TAB PO; -BUME1TAB18 PO; +CLOP75TA19 PO; -CLOP75TA27 PO; -DIGO125T PO; +DIGO125T19 PO; +FLUT1BLS INHALATION; -HYDR-3498 PO; +LISI-313 PO; -LISI2.5T59 PO; +LORA1TAB PO; -PANT40TA4 PO; -POTA20TA96 PO; +PROM118S PO; -TAMS-14 PO; +TAMS0.4C2 PO; -TIOT18CA INH; +TRAM50TA PO
[2018-12-15 11:47] VITALS: Ht 175.3 cm; Wt 84.8 kg
[2018-12-15] MEDS ORDERED: ALBUTEROL 0.083% (NEB) 2.5 MG/3 ML AMP INH STA (11:59)
[2018-12-15] MEDS ORDERED: IPRATROPIUM (NEB) 0.5 MG/2.5 ML AMP INH STA (11:59)
[2018-12-15] MEDS ORDERED: METHYLPREDNISOLONE 125 MG INJ IV STA (11:59)
[2018-12-15] MEDS ORDERED: FUROSEMIDE 40 MG INJ IV ONE (13:30)
--- NOTE | 2018-12-15 13:49 | ERD ---
ER Documentation Chief Complaint Chief Complaint sob today, cough x 2 days bib ra 89 HPI 67-year-old male presents to the emergency department complaining of shortness of breath. Patient has a history of congestive heart failure as well as possible COPD he tells me. Over the last 2 days has had an increasing cough despite the use of oxygen at home, he continued to be short of breath. He became acutely dyspneic today and called the paramedics. I have reviewed the hospital intern pre-hospital care. Pre-hospital vital signs were reviewed. Pre-hospital diagnostic tests were reviewed. Upon arrival, patient reports no chest pain, fevers, hemoptysis or sputum production. ROS All systems reviewed and are negative except as per history of present illness. Medications Home Meds Reported Medications Promethazine/Phenyleph/Codeine (Lgwdkbmrnitm-QJ-Dlssnib Syrup) 118 Ml Syrup, 5 ML PO Q4H 02/25/18 Lorazepam* (Lorazepam*) 1 Mg Tablet, 1 MG PO Q4H PRN for ANXIETY, #60 TAB 02/25/18 Tramadol Hcl* (Ultram*) 50 Mg Tablet, 50 MG PO Q6H PRN for PAIN, TAB 02/25/18 Spironolactone* (Aldactone*) 25 Mg Tablet, 25 MG PO DAILY, #30 TAB 02/25/18 Digoxin* (Digox*) 125 Mcg Tablet, 0.125 MG PO DAILY, TAB 02/25/18 Carvedilol* (Carvedilol*) 6.25 Mg Tablet, 6.25 MG PO BID, #60 TAB 02/25/18 Tamsulosin Hcl* (Tamsulosin Hcl*) 0.4 Mg Cap.er.24h, 0.4 MG PO DAILY, CAP 02/25/18 Ferrous Sulfate* (Ferrous Sulfate*) 325 Mg Tabec, 325 MG PO BID, TAB 02/25/18 Bumetanide* (Bumetanide*) 1 Mg Tablet, 1 MG PO DAILY, TAB 02/25/18 Clopidogrel Bisulfate* (Clopidogrel Bisulfate*) 75 Mg Tablet, 75 MG PO DAILY, #30 TAB 02/25/18 Lisinopril* (Lisinopril*) 5 Mg Tablet, 2.5 MG PO DAILY, #30 TAB 02/25/18 Fluticasone/Vilanterol (Breo Ellipta 200-25 Mcg INH) 1 Each Blst.w.dev, 1 PUFF INHALATION DAILY, #1 INHALER 02/25/18 Finasteride* (Finasteride*) 5 Mg Tablet, 5 MG PO DAILY, TAB 02/25/18 Aspirin* (Aspirin* EC) 81 Mg Tablet.dr, 81 MG PO DAILY, TAB 02/25/18 Atorvastatin* (Atorvastatin*) 40 Mg Tablet, 40 MG PO QHS, #30 TAB 02/25/18 Albuterol Sulfate* (Ventolin HFA*) 18 Gm Hfa.aer.ad, 2 PUFF INHALATION Q6H, #1 INHALER 02/25/18 Ipratropium [place]* (Atrovent HFA*) 12.9 Gm Aer.w.adap, 2 PUFF INHALATION Q4H for SHORTNESS OF BREATH, #1 INHALER 02/25/18 Albuterol Sulfate* (Albuterol Sulfate* Neb) 0.083%-3 Ml Neb, 2.5 MG NEB Q4H for WHEEZING AND SOB, #30 VIAL 02/25/18 Sertraline Hcl* (Sertraline Hcl*) 50 Mg Tablet, 50 MG PO DAILY, #30 TAB 02/25/18 Allergies Allergies: Coded Allergies: No Known Allergy (Unverified , 12/15/18) PMhx/Soc History of Surgery: Yes (CABG) Anesthesia Reaction: No Hx 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 Disorder: No Hx Respiratory Disorders: Yes (COPD) Hx Cardiac Disorders: Yes (CABG, HTN, CA, CHF, cholesterol) Hx Psychiatric Problems: Yes (Anxiety) Hx Miscellaneous Medical Probl: Yes (DM) Hx Alcohol Use: No Hx Substance Use: No Hx Tobacco Use: Yes Smoking Status: Current every day smoker FmHx Noncontributory for chief complaint Physical Exam Vitals Vital Signs Date Temp Pulse Resp B/P (MAP) Pulse Ox O2 O2 Flow FiO2 Time Delivery Rate 12/15/18 4.0 12:39 12/15/18 85 19 98 Nasal 4.0 12:39 Cannula 12/15/18 Nasal 3.0 12:00 Cannula 12/15/18 Nasal 3 12:00 Cannula 12/15/18 97.6 95 22 109/61 97 11:47 (77) Physical Exam GENERAL: Elderly appearing male who appears mildly dyspneic HEENT: Pupils equal, round, and reactive to light. EOMI. There is no scleral icterus. NECK: C-spine is soft and supple, there is no meningismus. There is no cervical lymphadenopathy. LUNGS: Wheezing is noted bilaterally. Occasional crackle at the bases. He is mildly tachypneic. HEART: Regular rate and rhythm, no murmurs, clicks, rubs or gallops. ABDOMEN: Soft, non-tender, non-distended. There are bowel sounds in all four quadrants. No rebound or guarding. EXTREMITIES: There is no peripheral cyanosis or edema. No focal swelling or erythema. NEURO: The patient moves all four extremities with 5/5 strength. Cranial nerves II - XII are intact. Normal gait. Alert and oriented SKIN: There is no apparent rash or petechiae. HEME/LYMPHATIC: There is no evidence of excessive bruising or lymphedema. PSYCHIATRIC: The patient does not appear anxious or depressed. Result Diagram: 12/15/18 1209 12/15/18 1209 Results 24 hrs Laboratory Tests Test 12/15/18 12:09 12/15/18 12:16 White Blood Count 9.9 10^3/ul Red Blood Count 4.94 10^6/ul Hemoglobin 11.5 g/dl Hematocrit 38.3 % Mean Corpuscular Volume 77.5 fl Mean Corpuscular Hemoglobin 23.3 pg Mean Corpuscular Hemoglobin Concent 30.0 g/dl Red Cell Distribution Width 19.9 % Platelet Count 250 10^3/UL Mean Platelet Volume 10.5 fl Immature Granulocytes % 0.400 % Neutrophils % 78.1 % Lymphocytes % 9.7 % Monocytes % 8.4 % Eosinophils % 2.8 % Basophils % 0.6 % Nucleated Red Blood Cells % 0.0 /100WBC Immature Granulocytes # 0.040 10^3/ul Neutrophils # 7.7 10^3/ul Lymphocytes # 1.0 10^3/ul Monocytes # 0.8 10^3/ul Eosinophils # 0.3 10^3/ul Basophils # 0.1 10^3/ul Nucleated Red Blood Cells # 0.0 10^3/ul Sodium Level 133 mmol/L Potassium Level 4.5 mmol/L Chloride Level 98 mmol/L Carbon Dioxide Level 22 mmol/L Anion Gap 13 Blood Urea Nitrogen 17 mg/dl Creatinine 0.74 mg/dl Est Glomerular Filtrat Rate mL/min > 60 mL/min Glucose Level 81 mg/dl Calcium Level 8.8 mg/dl Total Bilirubin 0.3 mg/dl Direct Bilirubin 0.00 mg/dl Indirect Bilirubin 0.3 mg/dl Aspartate Amino Transf (AST/SGOT) 31 IU/L Alanine Aminotransferase (ALT/SGPT) 12 IU/L Alkaline Phosphatase 67 IU/L Troponin I 0.014 ng/ml B-Type Natriuretic Peptide 38734 PG/ML Total Protein 8.0 g/dl Albumin 4.3 g/dl Globulin 3.70 g/dl Albumin/Globulin Ratio 1.16 POC Venous Lactate 1.9 mmol/L Current Medications Medications Dose Sig/Dimitrios Start Time Status Last (Trade) Ordered Route PRN Stop Time Admin Dose Reason Admin Albuterol 5 mg ONCE STAT 12/15/18 DC 12/15/18 (Proventil INH 11:59 12:38 0.083% (Neb)) 12/15/18 12:20 Ipratropium 0.5 mg ONCE STAT 12/15/18 DC 12/15/18 [place] INH 11:59 12:38 (Atrovent 12/15/18 12:20 0.02% (Neb)) 125 mg ONCE STAT 12/15/18 DC 12/15/18 Methylprednis IV 11:59 12:19 olone Sodium 12/15/18 12:20 Succinate (Solu-Medrol) Furosemide 40 mg ONCE ONCE 12/15/18 DC (Lasix) IV 13:30 12/15/18 13:31 Procedures/MDM Patient was taken to a room, seen and evaluated. Comfort measures were initiated. Diagnostic tests were ordered and reviewed. 3 LEAD RHYTHM STRIP: Ventricular pacemaker EK lead EKG reviewed by myself: Ventricular pacemaker Normal [place] and intervals Nonspecific ST and T wave changes without ST elevation Impression: Nonspecific EKG RADIOLOGY: Reviewed with the radiologist CONSULTATION: Hospitalist for the patient's insurance was notified for admission REEVALUATION: 1345: Diagnostic tests were appreciated and arrangements made for admission to the hospital. MEDICAL DECISION MAKING: Patient presents for shortness of breath. Differential diagnosis entertained included asthma, pneumonia, other cardiac and pulmonary concerns. After reviewing the patient's diagnostic tests and clinical presentation, patient appears to have decompensated congestive heart failure as well as COPD. He requires ongoing oxygen therapy and will require admission to the hospital for diuresis as well as observation.. Departure Diagnosis: Primary Impression: COPD with exacerbation BRITTNI MARIE Dec 15, 2018 13:49
[2018-12-15] MEDS ORDERED: traMADol 50 MG TAB PO PRN (15:00)
[2018-12-15] MEDS ORDERED: DOCUSATE SODIUM 100 MG CAP PO PRN (15:30)
[2018-12-15] MEDS ORDERED: NITROGLYCERIN (SL) 0.4 MG TAB SL PRN (15:30)
[2018-12-15] MEDS ORDERED: MAGNESIUM HYDROXIDE 30ML CUP PO PRN (15:30)
[2018-12-15] MEDS ORDERED: NACL 0.9% 3 ML SYG IV SCH (15:30)
[2018-12-15] MEDS ORDERED: ACETAMINOPHEN 325 MG TAB PO PRN (15:30)
[2018-12-15] MEDS ORDERED: BISACODYL 10 MG SUPP PR PRN (15:30)
[2018-12-15] MEDS ORDERED: ALBUTEROL/IPRATROPIUM (NEB) 3 ML AMP HHN PRN (15:30)
[2018-12-15] MEDS ORDERED: ONDANSETRON 4 MG INJ IV PRN (15:30)
--- NOTE | 2018-12-15 15:47 | HP ---
Date/Time of Note Date/Time of Note DATE: 12/15/18 TIME: 15:21 Assessment/Plan VTE Prophylaxis Pharmacological prophylaxis: LMWH Lines/Catheters IV Catheter Type (from [facility]): Saline Lock Assessment/Plan Assessment/Plan 67-year-old male with: 1. Mild respiratory distress, likely secondary to mild congestive heart failure exacerbation, acute on chronic systolic dysfunction and possibly also component of COPD exacerbation, patient still tobacco user. Agree with current treatment, patient received a dose of Lasix in the ER along with Solu-Medrol to address post condition, he feels more comfortable currently but sitting up in the chair. He is on 4 L nasal cannula. He does have chronic hypoxemia requiring 3 to 3.5 L nasal cannula at home at baseline. Patient is admitted to telemetry, will continue his nebulizer and Brio Ellipta which is his outpatient maintenance therapy. He is again advised to quit smoking. His Bumex has been changed to IV dosing twice daily. Will reevaluate respiratory status in a.m. for further re-dosing of medications. 2. Congestive heart failure, systolic dysfunction, chronic with likely mild acute exacerbation, chest x-ray shows some pulmonary edema, patient complains mostly of orthopnea. Continue diuresis. Recheck BMP in a.m. and monitor renal function. Continue current medications. Lisinopril held at this point due to blood pressure. On Bumex and spironolactone for diuresis, unclear why patient on digoxin. Check level in a.m. 3. Ischemic cardiomyopathy, status post ICD placement 1-2 months ago. Continue outpatient medications. Patient apparently due for outpatient ICD check soon. Last echocardiogram here at [facility] was almost 1 year ago. Ejection fraction measured at 25% 4. Severe coronary artery disease, status post bypass surgery a year and a half ago, continue current medications. 5. COPD with mild exacerbation given the fact that the patient is still smoking cigarettes, and he has been advised again to quit, he does have chronic hypoxemia requiring 3 L nasal cannula at home. Continue outpatient regimen and currently being given IV steroids in setting of exacerbation. 6. Hyperlipidemia: Continue statin therapy 7. Benign prostatic hypertrophy: Continue home regimen. 8. Major depressive disorder: Continue home medications 9. Chronic anemia, stable H&H, continue supplemental iron Prophylaxis: Patient tolerating p.o., Lovenox for DVT prophylaxis. Disposition: Patient admitted to telemetry observation for diuresis and treatment of possible underlying COPD exacerbation, goal is for him to tolerate his outpatient oxygen requirements of 3 L nasal cannula, he is already improved and on 4 L nasal cannula currently. Hopefully discharge planning in the next 24 hours. Result Diagram: 12/15/18 1209 12/15/18 1209 Results 24hrs Laboratory Tests Test 12/15/18 12:09 12/15/18 12:16 12/15/18 14:38 White Blood Count 9.9 Red Blood Count 4.94 Hemoglobin 11.5 L Hematocrit 38.3 L Mean Corpuscular Volume 77.5 L Mean Corpuscular Hemoglobin 23.3 L Mean Corpuscular Hemoglobin Concent 30.0 L Red Cell Distribution Width 19.9 H Platelet Count 250 # Mean Platelet Volume 10.5 H Immature Granulocytes % 0.400 Neutrophils % 78.1 H Lymphocytes % 9.7 L Monocytes % 8.4 Eosinophils % 2.8 Basophils % 0.6 Nucleated Red Blood Cells % 0.0 Immature Granulocytes # 0.040 H Neutrophils # 7.7 H Lymphocytes # 1.0 Monocytes # 0.8 Eosinophils # 0.3 Basophils # 0.1 Nucleated Red Blood Cells # 0.0 Sodium Level 133 L Potassium Level 4.5 Chloride Level 98 Carbon Dioxide Level 22 Anion Gap 13 Blood Urea Nitrogen 17 Creatinine 0.74 Est Glomerular Filtrat Rate mL/min > 60 Glucose Level 81 Calcium Level 8.8 Total Bilirubin 0.3 Direct Bilirubin 0.00 Indirect Bilirubin 0.3 Aspartate Amino Transf (AST/SGOT) 31 Alanine Aminotransferase (ALT/SGPT) 12 L Alkaline Phosphatase 67 Troponin I 0.014 B-Type Natriuretic Peptide 69168 H Total Protein 8.0 Albumin 4.3 Globulin 3.70 H Albumin/Globulin Ratio 1.16 POC Venous Lactate 1.9 2.0 HPI/ROS Admit Date/Time Admit Date/Time Hx of Present Illness Chief complaint: Shortness of breath History of presenting illness: This is a 67-year-old male with history of coronary artery disease status post coronary artery bypass surgery almost a year and a half ago, severe ischemic cardiomyopathy, status post ICD placement 1-2 months ago, chronic hypoxemia on 3 L nasal cannula, COPD and ongoing tobacco user who presented to the emergency department with complaint of shortness of breath especially worsening orthopnea. Patient reports that his worst episode was last night where he was feeling like suffocating when he would lie flat. The feeling continued throughout the day with more dyspnea on exertion so the patient called 911 who was brought to the emergency department. He also reports that he still an ongoing tobacco user, 1-2 cigarettes a day and his last cigarette was this morning. He denies any fevers, he does have a baseline cough and baseline wheezing. He denies any chest pains, nausea, vomiting, diaphoresis. He reports increased lower extremities edema yesterday but much improved today. He did receive Lasix in the emergency department but also nebulizer treatment and Solu-Medrol. BNP is elevated but improved compared to previous admissions. Patient is being admitted to telemetry for possible combination of mild CHF exacerbation and COPD exacerbation now. He will be treated for both, his diuretics have been adjusted to IV dosing twice daily and the rest of his medications are being continued. He is advised to quit tobacco use. He is placed on observation and hopefully stable for discharge back on his 3L home O2 in the next 24 hours. ROS Constitutional: no complaints Eyes: no complaints Respiratory: shortness of breath (Orthopnea and dyspnea on exertion mainly) Cardiovascular: orthopenea, paroxysmal nocturnal dyspnea, other (Dyspnea on exertion) Gastrointestinal: no complaints Genitourinary: no complaints Musculoskeletal: no complaints Skin: no complaints Neurologic: no complaints Endocrine: no complaints Lymphatic: no complaints Psychological: no complaints Immunologic: no complaints PMH/Family/Social Past Medical History Coronary artery disease, status post coronary artery bypass surgery approx 1 1/2 yr ago Ischemic cardiomyopathy Congestive heart failure ejection fraction 20-25%, chronic systolic dysfunction Chronic hypoxemia, on at least 3 L nasal cannula at home COPD Hypertension Hyperlipidemia Ongoing tobacco use BPH GERD Medications Current Medications Aspirin (Halfprin) 81 mg DAILY PO ; Start 12/16/18 at 09:00; Status UNV Atorvastatin Calcium (Lipitor) 40 mg QHS PO ; Start 12/15/18 at 21:00; Status UNV Carvedilol (Coreg) 6.25 mg BID PO ; Start 12/15/18 at 21:00; Status UNV Clopidogrel Bisulfate (plaVIX) 75 mg DAILY PO ; Start 12/16/18 at 09:00; Status UNV Digoxin (Digoxin) 0.125 mg DAILY PO ; Start 12/16/18 at 09:00; Status UNV Ferrous Sulfate (Ferrous Sulfate (Ec)) 325 mg BID PO ; Start 12/15/18 at 21:00; Status UNV Finasteride (Proscar) 5 mg DAILY PO ; Start 12/16/18 at 09:00; Status UNV Fluticasone/ Vilanterol (Breo Ellipta 200-25 Mcg Inh) 1 inh DAILY INH ; Start 12/16/18 at 09:00; Status UNV Lorazepam (Ativan) 1 mg Q4H PRN PO ANXIETY; Start 12/15/18 at 15:00; Status UNV Sertraline HCl (Zoloft) 50 mg DAILY PO ; Start 12/16/18 at 09:00; Status UNV Spironolactone (Aldactone) 25 mg DAILY PO ; Start 12/16/18 at 09:00; Status UNV Tamsulosin HCl (Flomax) 0.4 mg DAILY PO ; Start 12/16/18 at 09:00; Status UNV Tramadol HCl (Ultram) 50 mg Q6H PRN PO PAIN; Start 12/15/18 at 15:00; Status UNV Bumetanide (Bumex) 1 mg BID DIURETICS IV ; Start 12/15/18 at 18:00; Status UNV IV Flush (NS 3 ml) 3 ml PER PROTOCOL IV ; Start 12/15/18 at 15:30; Status UNV Ondansetron HCl (Zofran Inj) 4 mg Q6H PRN IV NAUSEA AND/OR VOMITING; Start 12/15/18 at 15:30; Status UNV Methylprednisolone Sodium Succinate (Solu-Medrol) 40 mg Q6 IV ; Start 12/15/18 at 18:00; Status UNV Nitroglycerin (Nitroglycerin (Sl Tab) 0.4 Mg) 1 tab Q5M PRN SL CHEST PAIN; Start 12/15/18 at 15:30; Status UNV Acetaminophen (Tylenol Tab) 650 mg Q6H PRN PO PAIN LEVEL 1-3 OR FEVER; Start 12/15/18 at 15:30; Status UNV Docusate Sodium (Colace) 100 mg Q12H PRN PO CONSTIPATION; Start 12/15/18 at 15:30; Status UNV Magnesium Hydroxide (Milk Of Mag) 30 ml DAILY PRN PO CONSTIPATION; Start 12/15/18 at 15:30; Status UNV Bisacodyl (Dulcolax Supp) 10 mg DAILY PRN [place] CONSTIPATION; Start 12/15/18 at 15:30; Status UNV Enoxaparin Sodium (Lovenox) 40 mg DAILY SC ; Start 12/16/18 at 09:00; Status UNV Albuterol/ Ipratropium (Duoneb) 3 ml Q6HWA RESP THERAPY HHN ; Start 12/15/18 at 20:00; Status UNV Albuterol/ Ipratropium (Duoneb) 3 ml Q3H RESP THERAPY PRN HHN SHORTNESS OF BREATH; Start 12/15/18 at 15:30; Status UNV Coded Allergies: No Known Allergy (Unverified , 12/15/18) Past Surgical History Status post CABG approximately 1.5 years ago. Status post ICD placement approximately 1 to 2 months ago Past Surgical Hx: angioplasty, coronary bypass surgery Family History Significant Family History: diabetes, hypertension Social History Alcohol Use: none Smoking Status: Current every day smoker (Patient still smoking 1-2 cigarettes a day) Drug Use: none Exam/Review of Systems Vital Signs Vitals Vital Signs Date Temp Pulse Resp B/P (MAP) Pulse Ox O2 O2 Flow FiO2 Time Delivery Rate 12/15/18 78 24 113/80 98 Nasal 3.5 14:33 (91) Cannula 12/15/18 97.6 11:47 Exam Constitutional: alert, oriented, well developed, other (Comfortable on 4 L nasal cannula currently sitting up) Respiratory: diminished breath sounds (Bases bilaterally), labored breathing, wheezing (Expiratory throughout) Cardiovascular: regular rate and rhythm, nl pulses Gastrointestinal: soft, non-tender Extremities: normal pulses, edema (Trace), other (No clubbing or cyanosis) 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: BLOCK[employer] II-XII intact, nl mental status, nl speech, nl strength Additional Comments Echocardiogram Report Patient Name: HARJEET CALZADA Gender: Male Date: 1950 Study Date: 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 Location: [facility] Ref. Physician: TAHIRA FOFANA Quality: Adequate Procedures: Transthoracic echocardiogram with complete 2D, M-Mode, and doppler examination. Indications: Congestive Heart Failure. 2D/M Mode Doppler Measurement Value Normal Ranges Measurement Value Normal Ranges LVIDd 2D 7.0 3.5 - 5.6 cm AV Mean Edgar 0.9 m/sec LVIDs 2D 6.3 2.1 - 4.1 cm AV Mean PG 4.0 mmHg FS 2D 9.4 % AV Peak Edgar 1.3 m/sec LVPWd 2D 1.1 0.6 - 1.1 cm AV Peak PG 6.0 mmHg IVSd 2D 1.1 0.6 - 1.1 cm AV VTI 21.0 cm IVS/LVPW 2D 1.0 LVOT Mean Edgar 0.5 m/sec AoR Diam 2D 2.8 2.0 - 3.7 cm LVOT Mean PG 1.0 mmHg LA/Ao 2D 2 0 - 1 LVOT Peak Egdar 0.9 m/sec EDV 2D 342.0 cm3 LVOT Peak PG 3.0 mmHg ESV 2D 254.0 cm3 LVOT VTI 11.6 cm LA Dimen 2D 5.0 2.3 - 4.0 cm MV Peak Edgar 1.9 m/sec MV Peak PG 14.0 mmHg MV Mean Edgar 0.9 m/sec MV Mean PG 4.0 mmHg MV VTI 63.6 cm TR Peak Edgar 2.3 m/sec TR Peak PG 22.0 mmHg RVSP 25.0 mmHg Findings Left Ventricle: Mild concentric left ventricular hypertrophy. Severe enlargement of left ventricle cavity. Severe left ventricular systolic dysfunction. Ejection fraction is visually estimated at 25 %. Abnormal Diastolic Function. Right Ventricle: Normal right ventricular size. Moderate right ventricular systolic dysfunction. Left Atrium: There is moderate enlargement of left atrium. Right Atrium: The right atrium is normal in size. Mitral Valve: Mitral Valve Bio Prosthesis. Mitral valve Max Velocity 1.89 m/sec. MeanPG 4.00 mmHg. Aortic Valve: No significant aortic stenosis. Aortic cusps appear mildly calcified. Trace aortic valve regurgitation. Tricuspid Valve: Normal appearance of the tricuspid valve. Estimated peak PA systolic pressure 25 mmHg. There is trace tricuspid regurgitation. Pulmonic Valve: Pulmonic valve not well visualized. There is trace pulmonic regurgitation. Pericardium: Normal pericardium with no significant pericardial effusion. Aorta: Normal aortic root. IVC: Normal size and normal respiratory collapse consistent with normal right atrial pressure. Conclusions 1. Mild concentric left ventricular hypertrophy. Severe enlargement of left ventricle cavity. Severe left ventricular systolic dysfunction. Ejection fraction is visually estimated at 25 %. Abnormal Diastolic Function. 2. Normal right ventricular size. Moderate right ventricular systolic dysfunction. 3. There is moderate enlargement of left atrium. 4. The right atrium is normal in size. 5. Mitral Valve Bio Prosthesis. Mitral valve Max Velocity 1.89 m/sec. MeanPG 4.00 mmHg. 6. No significant aortic stenosis. Aortic cusps appear mildly calcified. Trace aortic valve regurgitation. 7. Normal appearance of the tricuspid valve. Estimated peak PA systolic pressure 25 mmHg. There is trace tricuspid regurgitation. 8. Normal pericardium with no significant pericardial effusion. Electronically Signed By: Barney Dow 21-Dec-2017 12:39:50 -0800 PROCEDURE: XR Chest AP portable CLINICAL INDICATION: Short of breath TECHNIQUE: An AP portable radiograph of the chest was submitted. COMPARISON: 09/23/2018 FINDINGS: Support Hardware: None Cardiovascular: Since the previous study, an AICD generator is been implanted within the left chest wall and dual leads appear to be satisfactorily posit ioned. There is again evidence of a previous midline sternotomy and a left atrial appendage closure device is again evident. The heart remains mildly enlarged and the pulmonary vasculature again appears congested. Lung Crockett: Interstitial infiltrates are again seen diffusely through both lung crockett with air space opacification again seen at the lung bases medially. Pleural Spaces: No effusion or pneumothorax is presently identified. Osseous Structures: There is a fracture deformity involving the proximal right humerus. Soft Tissues: The soft tissues appear unremarkable. IMPRESSION: 1. Interval satisfactory placement of a left-sided AICD generator and bipolar leads. 2. There is again evidence of a midline sternotomy and a left atrial appendage closure device is again evident. 3. Persistent mild cardiomegaly with pulmonary vascular congestion. 4. Interstitial infiltrates suspicious for interstitial edema with air space opacification seen at the medial lung bases. Pleural fluid accumulation is no longer seen on the left and no pneumothorax is evident. Physician Mary Date Time Electronically viewed and signed by Physician Mary on 12/15/2018 12:35 DEE BERNABE Dec 15, 2018 15:34
[2018-12-15] MEDS ORDERED: METHYLPREDNISOLONE 125 MG INJ IV SCH (18:00)
[2018-12-15] MEDS: METHYLPREDNISOLONE 40 MG INJ IV SCH ×2 (18:41→23:19)
[2018-12-15] MEDS: BUMETANIDE 1 MG INJ IV SCH (18:41)
[2018-12-15 18:49] VITALS: BP 130/75; PULSE 101; RESP 20
[2018-12-15 19:54] VITALS: BP 130/69; PULSE 100; RESP 20
[2018-12-15 20:00] VITALS: PULSE 106
[2018-12-15] MEDS: FERROUS SULFATE (EC) 325 MG TAB PO SCH (20:57)
[2018-12-15] MEDS ORDERED: ATORVASTATIN 40 MG TAB PO SCH (21:00)
[2018-12-15] MEDS: ALBUTEROL/IPRATROPIUM (NEB) 3 ML AMP HHN SCH (21:03)
[2018-12-15] MEDS: GUAIFENESIN/DM 5ML CUP PO PRN (22:35)
[2018-12-15] MEDS: LORAZEPAM 1 MG TAB PO PRN (23:19)
[2018-12-15 23:55] VITALS: BP 122/68; PULSE 87; RESP 20
[2018-12-16] VITALS (7 sets, daily range): BP systolic 114–122; BP diastolic 60–64; PULSE 89–111; RESP 19–20
[2018-12-16] MEDS: GUAIFENESIN/DM 5ML CUP PO PRN ×2 (04:26→13:50)
[2018-12-16] MEDS: LORAZEPAM 1 MG TAB PO PRN (04:26)
[2018-12-16] MEDS: METHYLPREDNISOLONE 40 MG INJ IV SCH ×3 (05:52→13:51)
[2018-12-16] MEDS: BUMETANIDE 1 MG INJ IV SCH ×2 (05:52→13:57)
[2018-12-16] MEDS: FERROUS SULFATE (EC) 325 MG TAB PO SCH (08:18)
[2018-12-16] MEDS: ALBUTEROL/IPRATROPIUM (NEB) 3 ML AMP HHN SCH (08:55)
[2018-12-16] MEDS ORDERED: ASPIRIN (EC) 81 MG TAB PO SCH (09:00)
[2018-12-16] MEDS ORDERED: CLOPIDOGREL 75 MG TAB PO SCH (09:00)
[2018-12-16] MEDS ORDERED: FLUTICASONE/VILANTEROL 200-25 INH DEVICE INH SCH (09:00)
[2018-12-16] MEDS ORDERED: SPIRONOLACTONE 25 MG TAB PO SCH (09:00)
[2018-12-16] MEDS ORDERED: INFLUENZA VIRUS VACCINE 0.5 ML (DISPENSING) IM* ONE (09:00)
[2018-12-16] MEDS ORDERED: ENOXAPARIN 40 MG/0.4 ML SYG SC SCH (09:00)
[2018-12-16] MEDS ORDERED: SERTRALINE 50 MG TAB PO SCH (09:00)
[2018-12-16] MEDS ORDERED: TAMSULOSIN (SR) 0.4 MG CAP PO SCH (09:00)
[2018-12-16] MEDS ORDERED: FINASTERIDE 5 MG TAB PO SCH (09:00)
--- NOTE | 2018-12-16 11:17 | PN ---
Date/Time of Note Date/Time of Note DATE: 12/16/18 TIME: 11:03 Assessment/Plan VTE Prophylaxis Risk score (from Nsg)>0 risk: 2 SCD applied (from Nsg): Yes Pharmacological prophylaxis: LMWH Lines/Catheters IV Catheter Type (from Nrsg): Saline Lock Urinary Cath still in place: No Assessment/Plan Assessment/Plan 67-year-old male with: 1. Mild respiratory distress, likely secondary to mild congestive heart failure exacerbation, acute on chronic systolic dysfunction and possibly also component of COPD exacerbation, patient still tobacco user. Patient doing much better today, he feels he is back to baseline and back on his 3 L nasal cannula. He has his oxygen on and off at times actually. Patient will be discharged home back on his diuretics and also on Medrol Dosepak along with current inhalers that he is taking at home. He is again advised to quit smoking. 2. Congestive heart failure, systolic dysfunction, chronic with likely mild acute exacerbation. Which improved clinically, to be discharged home on Bumex. Continue current medications. Lisinopril held at this point due to blood pressure. Continue current medications. 3. Ischemic cardiomyopathy, status post ICD placement 1-2 months ago. Continue outpatient medications. Patient apparently due for outpatient ICD check, to be done outpatient soon. Last echocardiogram here at [facility] was almost 1 year ago. Ejection fraction measured at 25% 4. Severe coronary artery disease, status post bypass surgery a year and a half ago, continue current medications. 5. COPD with mild exacerbation given the fact that the patient is still smoking cigarettes, and he has been advised again to quit, he does have chronic hypoxemia requiring 3 L nasal cannula at home. Continue outpatient regimen and to be discharged with Medrol Dosepak in addition of maintenance regimen today. 6. Hyperlipidemia: Continue statin therapy 7. Benign prostatic hypertrophy: Continue home regimen. 8. Major depressive disorder: Continue home medications 9. Chronic anemia, stable H&H, continue supplemental iron Prophylaxis: Patient tolerating p.o., Lovenox for DVT prophylaxis. Disposition: Patient stable to discharge back home on 3 L nasal cannula per his home requirements. He is to follow-up with cardiology as an outpatient regarding his ICD check scheduled and adjustment of medications. Follow-up with his primary care physician also. Result Diagram: 12/16/1824 12/16/18 0524 Results 24hrs Laboratory Tests Test 12/15/18 12:09 12/15/18 12:16 12/15/18 14:38 12/15/18 16:17 White Blood Count 9.9 Red Blood Count 4.94 Hemoglobin 11.5 L Hematocrit 38.3 L Mean Corpuscular 77.5 L Volume Mean Corpuscular 23.3 L Hemoglobin Mean Corpuscular 30.0 L Hemoglobin Concent Red Cell 19.9 H Distribution Width Platelet Count 250 # Mean Platelet Volume 10.5 H Immature 0.400 Granulocytes % Neutrophils % 78.1 H Lymphocytes % 9.7 L Monocytes % 8.4 Eosinophils % 2.8 Basophils % 0.6 Nucleated Red Blood 0.0 Cells % Immature 0.040 H Granulocytes # Neutrophils # 7.7 H Lymphocytes # 1.0 Monocytes # 0.8 Eosinophils # 0.3 Basophils # 0.1 Nucleated Red Blood 0.0 Cells # Sodium Level 133 L Potassium Level 4.5 Chloride Level 98 Carbon Dioxide Level 22 Anion Gap 13 Blood Urea Nitrogen 17 Creatinine 0.74 Est Glomerular > 60 Filtrat Rate mL/min Glucose Level 81 Calcium Level 8.8 Total Bilirubin 0.3 Direct Bilirubin 0.00 Indirect Bilirubin 0.3 Aspartate Amino 31 Transf (AST/SGOT) Alanine 12 L Aminotransferase (AL T/SGPT) Alkaline Phosphatase 67 Troponin I 0.014 < 0.012 B-Type Natriuretic 75693 H 7950 H Peptide Total Protein 8.0 Albumin 4.3 Globulin 3.70 H Albumin/Globulin 1.16 Ratio POC Venous Lactate 1.9 2.0 Lactic Acid Level 3.3 *H Creatine Kinase 57 Creatine Kinase 5.3 Index Creatinine Kinase MB 3.02 H (Mass) Test 12/16/18 00:46 12/16/18 05:24 Creatine Kinase 81 Creatine Kinase 5.0 Index Creatinine Kinase MB 4.01 H (Mass) Troponin I 0.014 White Blood Count 8.1 Red Blood Count 4.52 L Hemoglobin 10.6 L Hematocrit 34.7 L Mean Corpuscular 76.8 L Volume Mean Corpuscular 23.5 L Hemoglobin Mean Corpuscular 30.5 L Hemoglobin Concent Red Cell 19.2 H Distribution Width Platelet Count 247 Mean Platelet Volume 9.3 Immature 0.700 H Granulocytes % Neutrophils % 92.9 H Lymphocytes % 4.3 L Monocytes % 2.1 Eosinophils % 0.0 Basophils % 0.0 Nucleated Red Blood 0.0 Cells % Immature 0.060 H Granulocytes # Neutrophils # 7.5 Lymphocytes # 0.4 L Monocytes # 0.2 L Eosinophils # 0.0 Basophils # 0.0 Nucleated Red Blood 0.0 Cells # Sodium Level 133 L Potassium Level 4.5 Chloride Level 93 L Carbon Dioxide Level 29 Anion Gap 11 Blood Urea Nitrogen 30 #H Creatinine 0.92 Est Glomerular > 60 Filtrat Rate mL/min Glucose Level 217 # Hemoglobin A1c 5.9 Calcium Level 9.0 Magnesium Level 1.9 Total Bilirubin 0.4 Direct Bilirubin 0.00 Indirect Bilirubin 0.4 Aspartate Amino 21 Transf (AST/SGOT) Alanine 24 Aminotransferase (AL T/SGPT) Alkaline Phosphatase 67 Total Protein 7.4 Albumin 4.0 Globulin 3.40 H Albumin/Globulin 1.17 Ratio Triglycerides Level 37 Cholesterol Level 163 LDL Cholesterol, 105 Calculated HDL Cholesterol 51 Cholesterol/HDL 3.1 Ratio Digoxin Level < 0.4 L Subjective 24 Hr Interval Summary Free Text/Dictation Patient remained stable, he is back down to 3 L nasal cannula which is his outpatient home O2 requirement. He is breathing comfortably. He reports that he is back to his baseline and would wish to be discharged today. He denies any chest pain, fevers or chills. His troponins remain negative overnight. He has diuresed fairly well. Exam/Review of Systems Vital Signs Vitals Vital Signs Date Temp Pulse Resp B/P (MAP) Pulse Ox O2 O2 Flow FiO2 Time Delivery Rate 12/16/18 74 18 95 Nasal 3.0 08:57 Cannula 12/16/18 98.4 118/60 07:27 (79) Intake and Output 12/15/18 12/15/18 12/16/18 1414:59 22:59 06:59 IntakeIntake Total 350 ml 220 ml OutputOutput Total 450 ml 450 ml BalanceBalance -100 ml -230 ml Exam Constitutional: alert, oriented, well developed, other (At baseline currently) Respiratory: normal air movement, crackles/rales (Scattered), other (Much improved air movement, chronic scattered wheezing.) Cardiovascular: regular rate and rhythm, nl pulses Gastrointestinal: soft, non-tender Musculoskeletal: nl extremities to inspection Extremities: normal pulses, other (No edema, clubbing or cyanosis ) 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: [employer]BILE [employer] II-XII intact, nl mental status, nl speech, nl strength Medications Medications Current Medications Aspirin (Halfprin) 81 mg DAILY PO Last administered on 12/16/18at 08:18; Admin Dose 81 MG; Start 12/16/18 at 09:00 Atorvastatin Calcium (Lipitor) 40 mg QHS PO Last administered on 12/15/18at 20:58; Admin Dose 40 MG; Start 12/15/18 at 21:00 Carvedilol (Coreg) 6.25 mg BID PO Last administered on 12/16/18at 08:19; Admin Dose 6.25 MG; Start 12/15/18 at 21:00 Clopidogrel Bisulfate (plaVIX) 75 mg DAILY PO Last administered on 12/16/18at 08:18; Admin Dose 75 MG; Start 12/16/18 at 09:00 Digoxin (Digoxin) 0.125 mg DAILY@1300 PO ; Start 12/16/18 at 13:00 Ferrous Sulfate (Ferrous Sulfate (Ec)) 325 mg BID PO Last administered on 12/16/18at 08:18; Admin Dose 325 MG; Start 12/15/18 at 21:00 Finasteride (Proscar) 5 mg DAILY PO Last administered on 12/16/18at 08:18; Admin Dose 5 MG; Start 12/16/18 at 09:00 Fluticasone/ Vilanterol (Breo Ellipta 200-25 Mcg Inh) 1 inh DAILY INH ; Start 12/16/18 at 09:00 Lorazepam (Ativan) 1 mg Q4H PRN PO ANXIETY Last administered on 12/16/18at 04:26; Admin Dose 1 MG; Start 12/15/18 at 15:00 Sertraline HCl (Zoloft) 50 mg DAILY PO Last administered on 12/16/18at 08:18; Admin Dose 50 MG; Start 12/16/18 at 09:00 Spironolactone (Aldactone) 25 mg DAILY PO Last administered on 12/16/18at 08:18; Admin Dose 25 MG; Start 12/16/18 at 09:00 Tamsulosin HCl (Flomax) 0.4 mg DAILY PO Last administered on 12/16/18at 08:18; Admin Dose 0.4 MG; Start 12/16/18 at 09:00 Tramadol HCl (Ultram) 50 mg Q6H PRN PO PAIN; Start 12/15/18 at 15:00 Bumetanide (Bumex) 1 mg BID DIURETICS IV Last administered on 12/16/18at 05:52; Admin Dose 1 MG; Start 12/15/18 at 18:00 IV Flush (NS 3 ml) 3 ml PER PROTOCOL IV ; Start 12/15/18 at 15:30 Ondansetron HCl (Zofran Inj) 4 mg Q6H PRN IV NAUSEA AND/OR VOMITING; Start 12/15/18 at 15:30 Nitroglycerin (Nitroglycerin (Sl Tab) 0.4 Mg) 1 tab Q5M PRN SL CHEST PAIN; Start 12/15/18 at 15:30 Acetaminophen (Tylenol Tab) 650 mg Q6H PRN PO PAIN LEVEL 1-3 OR FEVER; Start 12/15/18 at 15:30 Docusate Sodium (Colace) 100 mg Q12H PRN PO CONSTIPATION; Start 12/15/18 at 15:30 Magnesium Hydroxide (Milk Of Mag) 30 ml DAILY PRN PO CONSTIPATION; Start 12/15/18 at 15:30 Bisacodyl (Dulcolax Supp) 10 mg DAILY PRN [place] CONSTIPATION; Start 12/15/18 at 15:30 Enoxaparin Sodium (Lovenox) 40 mg DAILY SC Last administered on 12/16/18at 08:23; Admin Dose 40 MG; Start 12/16/18 at 09:00 Albuterol/ Ipratropium (Duoneb) 3 ml Q6HWA RESP THERAPY HHN Last administered on 12/16/18at 08:55; Admin Dose 3 ML; Start 12/15/18 at 20:00 Albuterol/ Ipratropium (Duoneb) 3 ml Q3H RESP THERAPY PRN HHN SHORTNESS OF BREATH Last administered on 12/16/18at 04:15; Admin Dose 3 ML; Start 12/15/18 at 15:30 Methylprednisolone Sodium Succinate (Solu-Medrol) 40 mg Q6 IV Last administered on 12/16/18at 08:18; Admin Dose 40 MG; Start 12/15/18 at 18:00 Guaifenesin/ Dextromethorphan (Robitussin Dm Liquid Cup) 10 ml Q4H PRN PO COUGH Last administered on 12/16/18at 04:26; Admin Dose 10 ML; Start 12/15/18 at 22:00 DEE BERNABE Dec 16, 2018 11:13
--- NOTE | 2018-12-16 12:25 | PDOCDIS ---
Discharge Instructions CONDITION [id number] Patient Condition: [id number] Stable HOME CARE INSTRUCTIONS: [id number] Diet Instructions: [id number] Activity Restrictions: [id number] Slowly Increase Activity FOLLOW UP/APPOINTMENTS Follow-up Plan Follow-up with cardiology as an outpatient regarding scheduled ICD check and further titration of cardiac medications. Follow-up within 1-2 weeks, or as scheduled if already scheduled Follow-up with primary care physician within 1-2 weeks. DEE BERNABE Dec 16, 2018 12:25
[2018-12-16] MEDS ORDERED: MED4DP PO (12:29)
[2018-12-16] MEDS ORDERED: DIGOXIN 0.125 MG TAB PO SCH (13:00)
--- NOTE | 2018-12-16 17:55 | DS ---
Date/Time of Note Date/Time of Note DATE: 12/16/18 TIME: 17:49 Discharge Summary Admission/Discharge Info Admit Date/Time Dec 15, 2018 at 15:08 Discharge Date/Time Dec 16, 2018 at 14:10 Discharge Diagnosis 1. Mild respiratory distress, likely secondary to mild congestive heart failure exacerbation, acute on chronic systolic dysfunction and possibly also component of COPD exacerbation. Resolved, respiratory status back to baseline. Chronic hypoxemia on 3 L nasal cannula. 2. Chronic hypoxemia, 3 L nasal cannula at baseline. 3. Congestive heart failure, systolic dysfunction, chronic with likely mild acute exacerbation. Ejection fraction 25% 1 year ago 4. Ischemic cardiomyopathy, status post ICD placement 1-2 months ago. 5. Severe coronary artery disease, status post bypass surgery a year and a half ago 6. COPD with mild exacerbation 7. Hyperlipidemia 8. Benign prostatic hypertrophy 9. Major depressive disorder 10. Chronic anemia Patient Condition: Stable Consults none Procedures none Hx of Present Illness Chief complaint: Shortness of breath History of presenting illness: This is a 67-year-old male with history of coronary artery disease status post coronary artery bypass surgery almost a year and a half ago, severe ischemic cardiomyopathy, status post ICD placement 1-2 months ago, chronic hypoxemia on 3 L nasal cannula, COPD and ongoing tobacco user who presented to the emergency department with complaint of shortness of breath especially worsening orthopnea. Patient reports that his worst episode was last night where he was feeling like suffocating when he would lie flat. The feeling continued throughout the day with more dyspnea on exertion so the p atient called 911 who was brought to the emergency department. He also reports that he still an ongoing tobacco user, 1-2 cigarettes a day and his last cigarette was this morning. He denies any fevers, he does have a baseline cough and baseline wheezing. He denies any chest pains, nausea, vomiting, diaphoresis. He reports increased lower extremities edema yesterday but much improved today. He did receive Lasix in the emergency department but also nebulizer treatment and Solu-Medrol. BNP is elevated but improved compared to previous admissions. Patient is being admitted to telemetry for possible combination of mild CHF exacerbation and COPD exacerbation now. He will be treated for both, his diuretics have been adjusted to IV dosing twice daily and the rest of his medications are being continued. He is advised to quit tobacco use. He is placed on observation and hopefully stable for discharge back on his 3L home O2 in the next 24 hours. Hospital Course Patient was admitted to telemetry, he was ruled out for acute coronary syndrome, even by the time he was being admitted from the emergency department, his respiratory status has improved greatly after 1 dose of Lasix 40 mg IV and Solu- Medrol 125 mg IV x1. He was maintained on nebulizer treatment, he is Brio Ellipta was continued. He was maintained on Solu-Medrol 40 mg IV every 6 hours. His Bumex was continued but under IV form and twice daily. On hospital day #2, patient was back to his baseline, he is able to lie almost flat, using one pillow which is his usual, he is on 3 L nasal cannula that he takes of on and off. No signs of lower extremity edema. On exam no wheezing, he does have chronic Velcro-like crackles. I have asked him at least twice if he feels that he was back to baseline he reported that he was back to baseline and wanted to go home. Clinically he is stable for discharge, he was discharged on Medrol Dosepak, but he was given a dose of Solu-Medrol prior to discharge and also a dose of Bumex IV prior to discharge to complete his treatment today inpatient. He is to resume his Bumex p.o. at home and again take Medrol Dosepak in addition of his Brio Ellipta and nebulizer treatments that he has at home. Patient is advised to quit smoking once again, he has declined nicotine patch saying he is not working. It is likely that he will go back to smoking. Patient is to follow-up with his primary care physician and also with his repeater operator regarding ICD check, this has been scheduled as an outpatient and upcoming soon. Home Meds Active Scripts Methylprednisolone* (Medrol* DOSE PACK) 4 Mg/Dose-Pack Tab.ds.pk, 4 MG PO . DIRECTED, #1 PACKET Prov:DEE BERNABE 12/16/18 Reported Medications Promethazine/Phenyleph/Codeine (Wunyhkomceto-[id number] Syrup) 118 Ml Syrup, 5 ML PO Q4H 02/25/18 Lorazepam* (Lorazepam*) 1 Mg Tablet, 1 MG PO Q4H PRN for ANXIETY, #60 TAB 3/29/18 Tramadol Hcl* (Ultram*) 50 Mg Tablet, 50 MG PO Q6H PRN for PAIN, TAB 02/25/18 Spironolactone* (Aldactone*) 25 Mg Tablet, 25 MG PO DAILY, #30 TAB 02/25/18 Digoxin* (Digox*) 125 Mcg Tablet, 0.125 MG PO DAILY, TAB 02/25/18 Carvedilol* (Carvedilol*) 6.25 Mg Tablet, 6.25 MG PO BID, #60 TAB 02/25/18 Tamsulosin Hcl* (Tamsulosin Hcl*) 0.4 Mg Cap.er.24h, 0.4 MG PO DAILY, CAP 02/25/18 Ferrous Sulfate* (Ferrous Sulfate*) 325 Mg Tabec, 325 MG PO BID, TAB 02/25/18 Bumetanide* (Bumetanide*) 1 Mg Tablet, 1 MG PO DAILY, TAB 02/25/18 Clopidogrel Bisulfate* (Clopidogrel Bisulfate*) 75 Mg Tablet, 75 MG PO DAILY, #30 TAB 02/25/18 Lisinopril* (Lisinopril*) 5 Mg Tablet, 2.5 MG PO DAILY, #30 TAB 02/25/18 Fluticasone/Vilanterol (Breo Ellipta 200-25 Mcg INH) 1 Each Blst.w.dev, 1 PUFF INHALATION DAILY, #1 INHALER 02/25/18 Finasteride* (Finasteride*) 5 Mg Tablet, 5 MG PO DAILY, TAB 02/25/18 Aspirin* (Aspirin* EC) 81 Mg Tablet.dr, 81 MG PO DAILY, TAB 02/25/18 Atorvastatin* (Atorvastatin*) 40 Mg Tablet, 40 MG PO QHS, #30 TAB 02/25/18 Albuterol Sulfate* (Ventolin HFA*) 18 Gm Hfa.aer.ad, 2 PUFF INHALATION Q6H, #1 INHALER 02/25/18 Ipratropium [place]* (Atrovent HFA*) 12.9 Gm Aer.w.adap, 2 PUFF INHALATION Q4H for SHORTNESS OF BREATH, #1 INHALER 02/25/18 Albuterol Sulfate* (Albuterol Sulfate* Neb) 0.083%-3 Ml Neb, 2.5 MG NEB Q4H for WHEEZING AND SOB, #30 VIAL 02/25/18 Sertraline Hcl* (Sertraline Hcl*) 50 Mg Tablet, 50 MG PO DAILY, #30 TAB 02/25/18 Follow-up Plan Follow-up with cardiology as an outpatient regarding scheduled ICD check and further titration of cardiac medications. Follow-up within 1-2 weeks, or as scheduled if already scheduled Follow-up with primary care physician within 1-2 weeks. Primary Care Provider Regino Viera MD Time spent on discharge: > 30 minutes Pending Labs Laboratory Tests Test 12/16/18 00:46 12/16/18 05:24 Creatine Kinase 81 IU/L (23-200) Creatine Kinase Index 5.0 Creatinine Kinase MB 4.01 ng/ml (0.0-2.4) (Mass) Troponin I 0.014 ng/ml (0.000-0.120) White Blood Count 8.1 10^3/ul (4.8-10.8) Red Blood Count 4.52 10^6/ul (4.70-6.10) Hemoglobin 10.6 g/dl (14.0-18.0) Hematocrit 34.7 % (42.0-52.0) Mean Corpuscular Volume 76.8 fl (82.0-101.0) Mean Corpuscular 23.5 pg (29.0-33.0) Hemoglobin Mean Corpuscular 30.5 g/dl (32.0-37.0) Hemoglobin Concent Red Cell Distribution 19.2 % (11.5-14.5) Width Platelet Count 247 10^3/UL (140-415) Mean Platelet Volume 9.3 fl (7.4-10.4) Immature Granulocytes % 0.700 % (0.001-0.429) Neutrophils % 92.9 % (39.0-77.0) Lymphocytes % 4.3 % (15.0-51.0) Monocytes % 2.1 % (0.0-11.0) Eosinophils % 0.0 % (0.0-7.0) Basophils % 0.0 % (0.0-2.0) Nucleated Red Blood Cells 0.0 /100WBC (0.0-0.0) % Immature Granulocytes # 0.060 10^3/ul (0.0-0.031) Neutrophils # 7.5 10^3/ul (1.6-7.5) Lymphocytes # 0.4 10^3/ul (0.8-2.9) Monocytes # 0.2 10^3/ul (0.3-0.9) Eosinophils # 0.0 10^3/ul (0.0-0.5) Basophils # 0.0 10^3/ul (0.0-0.1) Nucleated Red Blood Cells 0.0 10^3/ul (0.0-0.0) # Sodium Level 133 mmol/L (135-144) Potassium Level 4.5 mmol/L (3.5-5.1) Chloride Level 93 mmol/L (97-110) Carbon Dioxide Level 29 mmol/L (21-31) Anion Gap 11 (5-13) Blood Urea Nitrogen 30 mg/dl (7-20) Creatinine 0.92 mg/dl (0.61-1.24) Est Glomerular Filtrat > 60 mL/min (>60) Rate mL/min Glucose Level 217 mg/dl (70-220) Hemoglobin A1c 5.9 % (0-5.9) Calcium Level 9.0 mg/dl (8.4-10.2) Magnesium Level 1.9 mg/dl (1.7-2.5) Total Bilirubin 0.4 mg/dl (0.2-1.3) Direct Bilirubin 0.00 mg/dl (0.00-0.20) Indirect Bilirubin 0.4 mg/dl (0-1.1) Aspartate Amino 21 IU/L (15-46) Transf (AST/SGOT) Alanine 24 IU/L (13-69) Aminotransferase (ALT/SGPT ) Alkaline Phosphatase 67 IU/L (42-121) Total Protein 7.4 g/dl (6.1-8.1) Albumin 4.0 g/dl (3.3-4.9) Globulin 3.40 g/dl (1.3-3.2) Albumin/Globulin Ratio 1.17 Triglycerides Level 37 mg/dl (0-149) Cholesterol Level 163 mg/dl (100-200) LDL Cholesterol, 105 mg/dl Calculated HDL Cholesterol 51 mg/dl (30-78) Cholesterol/HDL Ratio 3.1 RATIO Digoxin Level < 0.4 ng/ml (1.0-2.0) DEE BERNABE Dec 16, 2018 17:55
== END 2018-12-16 14:10 | disposition home or self-care (01) ==
LOC: E/R 11:35 → 6WM 15:08
PROVIDERS: ADMIT Internal Medicine; ATTEND Internal Medicine
DX: R06.03 Acute respiratory distress (principal); R09.02 Hypoxemia; I25.5 Ischemic cardiomyopathy; I25.10 Atherosclerotic heart disease of native coronary artery without angina pectoris; Z95.1 Presence of aortocoronary bypass graft; I11.0 Hypertensive heart disease with heart failure; I50.22 Chronic systolic (congestive) heart failure; J44.1 Chronic obstructive pulmonary disease with (acute) exacerbation; E11.9 Type 2 diabetes mellitus without complications; E78.5 Hyperlipidemia, unspecified; N40.0 Benign prostatic hyperplasia without lower urinary tract symptoms; F32.9 Major depressive disorder, single episode, unspecified; D64.9 Anemia, unspecified; F17.200 Nicotine dependence, unspecified, uncomplicated; Z79.82 Long term (current) use of aspirin; Z23 Encounter for immunization
CPT/HCPCS: 36415; 71045; 80053; 80061; 80162; 82550; 82553; 83036; 83605; 83735; 83880; 84484; 85025; 90686; 93005; 94640; 94664; 96374; 96375; J1650; J1940; J2920; J2930; Z7500; Z7502; Z7610; G0378